=== PATIENT | female | born 1945 | race Caucasian/White ===

== ENCOUNTER 2022-12-30 09:40 | Outpatient (OUT) | payer MEDICARE, SELFPAY ==
[2022-12-30 10:02] LABS: Basophils Absolute Auto 0.1 10^3/uL (0.0-0.1); Basophils Percent Auto 1.6 % (0.2-2.0); Eosinophils Absolute Auto 0.2 10^3/uL (0.0-0.7); Eosinophils Percent Auto 5.5 % (0.9-7.0); Hematocrit 37.4 % (36.0-48.0); Hemoglobin 11.8 g/dL (12.0-16.0); Lymphocytes Percent Auto 32.1 % (20.5-60.0); Mean Corpuscular HGB Conc 31.6 g/dL (29.9-35.2); Mean Corpuscular Hemoglobin 30.7 pg (26.7-34.0); Mean Corpuscular Volume 97.4 fL (81.0-99.0); Mean Platelet Volume 10.8 fL (9.5-13.5); Monocytes Absolute Auto 0.3 10^3/uL (0.3-0.8); Neutrophils Absolute Auto 1.5 10^3/uL (1.4-6.5); Neutrophils Percent Auto 49.8 % (43.0-75.0); Platelet Count 235 10^3/uL (150-450); Red Blood Count 3.84 10^6/uL (4.20-5.40); Red Cell Distribution Width 12.3 % (11.0-15.0); White Blood Count 3.1 10^3/uL (4.0-11.0)
[2022-12-30 10:11] LABS: Estimated Average Glucose 105 mg/dL; Glycohemoglobin A1C 5.3 % (4.5-6.2)
[2022-12-30 10:42] LABS: Alanine Aminotransferase 22 U/L (14-59); Albumin Globulin Ratio 1.3; Albumin Level 3.8 g/dL (3.4-5.0); Alkaline Phosphatase 61 U/L (46-116); Anion Gap 7.3; Aspartate Amino Transferase 17 U/L (15-37); Bilirubin Total 0.6 mg/dL (0.2-1.0); Carbon Dioxide 35.6 mmol/L (21.0-32.0); Chloride 103 mmol/L (98-107); Chol HDL Ratio 1.7; Cholesterol 175 mg/dL (<=200); Estimated GFR (African America >60 (>=60); Estimated GFR (Non-African Ame >60 (>=60); Free T3 2.49 pg/mL (2.18-3.98); Globulin 2.9 g/dL; Glucose 90 mg/dL (74-106); HDL Cholesterol 104 mg/dL (40-60); Potassium 3.9 mmol/L (3.5-5.1); Sodium 142 mmol/L (136-145); Thyroid Stimulating Hormone 0.707 uIU/mL (0.358-3.740); Total Protein 6.7 g/dL (6.4-8.2); Triglycerides 38 mg/dL (<=150); VLDL CHOLESTEROL 7.6 mg/dL
== END 2022-12-30 09:41 | disposition home or self-care (01) ==
LOC: LAB 09:44
PROVIDERS: PCP Family Medicine; Visit Provider Family Medicine
DX: D64.9 Anemia, unspecified (principal); E55.9 Vitamin D deficiency, unspecified; R73.09 Other abnormal glucose; E78.5 Hyperlipidemia, unspecified; I10 Essential (primary) hypertension; K58.9 Irritable bowel syndrome, unspecified; E03.9 Hypothyroidism, unspecified
CPT/HCPCS: 36415; 80053; 80061; 82306; 83036; 83540; 84436; 84443; 84481; 85025

== ENCOUNTER 2023-01-14 10:14 | Outpatient (OUT) | payer MEDICARE, SELFPAY ==
[2023-01-14 12:16] LABS: Basophils Absolute Auto 0.1 10^3/uL (0.0-0.1); Eosinophils Absolute Auto 0.3 10^3/uL (0.0-0.7); Eosinophils Percent Auto 3.2 % (0.9-7.0); Hematocrit 37.1 % (36.0-48.0); Hemoglobin 11.9 g/dL (12.0-16.0); Immature Granulocytes Abs Auto 0.02 10^3/uL (0.00-0.03); Immature Granulocytes Pct Auto 0.3 % (0.0-0.5); Lymphocytes Absolute Auto 0.9 10^3/uL (1.2-3.8); Lymphocytes Percent Auto 11.3 % (20.5-60.0); Mean Corpuscular HGB Conc 32.1 g/dL (29.9-35.2); Mean Corpuscular Hemoglobin 31.8 pg (26.7-34.0); Mean Corpuscular Volume 99.2 fL (81.0-99.0); Mean Platelet Volume 12.1 fL (9.5-13.5); Monocytes Absolute Auto 0.6 10^3/uL (0.3-0.8); Monocytes Percent Auto 7.1 % (1.7-12.0); Neutrophils Absolute Auto 6.1 10^3/uL (1.4-6.5); Neutrophils Percent Auto 77.1 % (43.0-75.0); Platelet Count 223 10^3/uL (150-450); Red Blood Count 3.74 10^6/uL (4.20-5.40); Red Cell Distribution Width 12.4 % (11.0-15.0); White Blood Count 7.9 10^3/uL (4.0-11.0)
== END 2023-01-14 10:15 | disposition home or self-care (01) ==
LOC: LAB 10:15
PROVIDERS: PCP Family Medicine; Visit Provider Family Medicine
DX: R79.9 Abnormal finding of blood chemistry, unspecified (principal)
CPT/HCPCS: 36415; 85025

== ENCOUNTER 2023-07-27 21:15 | Emergency (ER) | payer MEDICARE, SELFPAY ==
[2023-07-27 21:23] VITALS: BP 174/88; PULSE 70; TEMP 36.4; O2SAT 98; BMI 17.2
--- OUTSIDE RECORDS SUMMARY | 2023-07-27 21:25 | XMS_ITS | CCD ---
Author Organization [facility] Care Team Providers Care Weighbridge Operator Name Role Phone SANJANA DE LA CRUZ Primary Care Unavailable BONETTI, SUE Primary Care Unavailable BONETTI, SUE Primary Care Unavailable BONETTI, SANJANA PEOPLES Referring Unavailable BONETTI, SANJANA PEOPLES Primary Care Unavailable Bonettgianluca, Sanjana Peoples Primary Care Provider JONO, SANJNAA PEOPLES Primary Care Unavailable Bonettgianluca, DO Kimmy Primary Care Provider DO Kimmy De La Cruz Attending Provider MD Andrez Hartman Attending Provider Kimmy De La Cruz Attending Unavailable Bonetti, Kimmy Primary Care Unavailable Andrez Hartman Attending Unavailable Jono, Kimmy Primary Care Unavailable PHIL ROBLEDO Consulting Unavailable PHIL ROBLEDO Admitting Unavailable PHIL ROBLEDO Attending Unavailable WANDA HONG Consulting Unavailable Allergies Allergy Classification Reported Allergen(s) Allergy Type Date of Onset Reaction(s) Facility (1 source) cefdinir Drug Allergy 11-16-2018 [place], [place] Medications Current Medications Medication Drug Class(es) Dates Sig (Normalized) Sig (Original) acetaminophen 325 mg oral capsule (1 source) Acetaminophen (TYLENOL) 325 MG CAPS Take by mouth 0 Active albuterol sulfate HFA 108 (90 Base) MCG/ACT inhaler (1 source) Start: 03-19-2019 take 2 puff(s) by inhalation four times daily as needed for wheezing albuterol sulfate HFA 108 (90 Base) MCG/ACT inhaler Inhale 2 puffs into the lungs 4 times daily as needed for Wheezing 3 Inhaler 1 03/19/2019 Active amLODIPine 2.5 mg oral tablet (2 sources) Dihydropyridine Calcium Channel Jun Start: 09-28-2021 take 2.5 mg by mouth twice daily Amlodipine Active 2.5 MG PO Twice A Day September 28, 2021 12:00am ascorbic acid 1000 mg oral tablet (2 sources) Vitamin C Start: 09-29-2021 take 1 g by mouth every six hours Ascorbic Acid (Vitamin C) (Vitamin C) 1,000 mg Tablet Active 1 GM PO Q6H September 29, 2021 12:00am Atenolol (5 sources) beta-Adrenergic Jun Start: 10-21-2020 Atenolol Active October 21, 2020 8:36am Start: 10-21-2020 Atenolol Activ e October 21, 2020 9:36am Start: 01-24-2019 End: 09-29-2021 take 25 mg by mouth at bedtime Atenolol Discontinued 2 5 MG PO Bedtime January 24, 2019 1:00am September 29, 2021 10:57am cholecalciferol 0.025 mg oral capsule (2 sources) Vitamin D Start: 09-29-2021 take 1 capsule by mouth once daily Cholecalciferol (Vitamin D3) (Vitamin D3) 25 mcg (1,000 unit) Capsule Active 25 MCG PO Every Day September 29, 2021 12:00am Co Q-10 (2 sources) Start: 10-21-2020 Co Q-10 Active October 21, 2020 8:36am Start: 10-21-2020 Co Q-10 Active October 21, 2020 9:36am ubidecarenone 100 mg oral ca psule (3 sources) Start: 09-29-2021 Coenzyme Q10 ( Coq-10) 100 mg Capsule Active 100 MG PO Every Day September 29, 2021 12:00am Coenzyme Q10 (CO Q-10 MAXIMUM STRENGTH) 400 MG CAPS Take by mouth 0 Active diclofenac sodium 0.01 mg/mg topical gel (1 source) Nonsteroidal Anti-inflammatory Drug Start: 08-06-2019 diclofenac sodium (VOLTAREN) 1 % GEL Apply 4 g topically 4 times daily 2 Tube 5 08/06/2019 Active levothyroxine (5 sources) l-Thyroxine Start: 10-21-2020 Levothyroxine Sodium Active October 21, 2020 8:36am Start: 10-21-2020 Levothyroxine Sodium Active October 21, 2020 9:36am Start: 01-24-2019 take 1 tablet by ethel th once daily Levothyroxine (Synthroid) 75 MCG tablet Active 75 MCG PO Daily January 24, 2019 1:00am Magnesium (2 sources) Start: 09-29-2021 take 200 mg by mouth once daily Magnesium Active 200 MG PO Every Day September 29, 2021 12:00am meloxicam (3 sources) Nonsteroidal Anti-inflammatory Drug Start: 10-21-2020 Meloxicam Active October 21, 2020 8:36am Start: 10-21-2020 Meloxicam Acti ve October 21, 2020 9:36am Start: 08-06-2019 take 1 tablet by ethel th once daily as needed for pain meloxicam (MOBIC) 7.5 MG tablet Take 1 tablet by mouth daily as needed for Pain 30 tablet 0 08/06/2019 Active NONFORMULARY (1 source) NONFORMULARY CBD OIL 0 Active Simvastatin (5 sources) HMG-CoA Reductase Inhibitor Start: 10-21-2020 Simvastatin Active October 21, 2020 8:36am Start: 10-21-2020 Simvastatin Ac tive October 21, 2020 9:36am Start: 01-24-2019 take 1 tablet by ethel th once daily Simvastatin (Zocor) 20 MG tablet Active 20 MG PO Daily January 24, 2019 1:00am Vitamin D3 (2 sources) Start: 10-21-2020 Vitamin D3 Act guera October 21, 2020 8:36am Start: 10-21-2020 Vitamin D3 Act guera October 21, 2020 9:36am Zinc (2 sources) Start: 09-29-2021 take 50 mg by mouth once daily Zinc Active 50 MG PO Daily September 29, 2021 12:00am Problems Active Problems Problem Classification Problem Date Documented Da te Episodic/Chronic Disorders of lipid metabolism (1 source) Mixed hyperlipidemia; Translations: [Mixed hyperlipidemia] Chronic Essential hypertension (1 source) Hypertensive disorder; Translations: [Hypertension] Onset: 11-23-2018 11-23-2018 Chronic Osteoarthritis (1 source) Osteoarthritis; Translations: [Osteoarthritis] Onset: 11-23-2018 11-23-2018 Chronic Other upper respiratory infections (1 source) Acute upper respiratory infection, unspecified; Translations: [ACUTE UP RESPIRATORY INFECTION UNS] Onset: 03-02-2022 Episodic Thyroid disorders (1 source) Acquired hypothyroidism; Translations: [Acquired hypothyroidism] Chronic Unclassified (2 sources) COUGH, UNSPECIFIED; Translations: [COUGH, UNSPECIFIED] Onset: 03-02-2022 Unclassified (1 source) UNVACCINATED FOR COVID-19; Translations: [UNVACCINATED FOR COVID-19] Onset: 03-02-2022 Unclassified (1 source) CONTACT W/AND (SUSP) EXPOS COVID-19; Translations: [CONTACT W/AND (SUSP) EXPOS COVID-19] Onset: 03-02-2022 Past or Other Problems Problem Classification Problem Date Documented Da te Episodic/Chronic Unclassified (1 source) COUGH, UNSPECIFIED; Translations: [COUGH, UNSPECIFIED] Onset: 02-28-2022 Results Test Name Value Interpretation Reference Range Facil ity [facility]05 SARS-CoV-2 (COVID-19) RNA TREVOR+probe Ql (Unsp spec) Not detected Normal NOT DETECTED [facility] Comment on above: Result Comment: This test is not yet approved or cleared by the [place] FDA. When there are no FDA-approved or cleared tests available, and other criteria are met, FDA can make tests available under an emergency access mechanism called an Emergency Use Authorization (EUA). The EUA for this test is supported by the [place] of Health and Human Service's (HHS's) declaration that circumstances exist to justify the emergency use of in vitro diagnostics for the detection and/or diagnosis of the virus that causes COVID-19. This EUA will remain in effect (meaning this test can be used) for the duration of the COVID-19 declaration justifying emergency of IVDs, unless it is terminated or revoked by FDA (after which the test may no longer be used). When diagnostic testing is negative, the possibility of a false negative should be considered in the context of a patient's recent exposures and the presence of clinical signs and symptoms consistent with SARS-CoV-2. Performed By: #### C [facility] #### [facility] [address] [place] [address] Dr. Fabrice Garza INFLUENZA A AND B AGon 02-28 INFLUANEGH SEE BELOW Normal [facility] Comment on above: Result Comment: Nega tive for Flu A protein angiten. Infection due to Flu A cannot be ruled out. Flu A angiten in the sample may be below the detection limit of the test. Performed By: #### I [facility] #### [facility] [address] [place] [address] Dr. Fabrice Garza INFLUBNEG SEE BELOW Normal [facility] Comment on above: Result Comment: Nega tive for Flu B protein antigen. Infection due to Flu B cannot be ruled out. Flu B antigen in the sample may be below the detection limit of the test. Performed By: #### I [facility] #### [facility] [address] [place] [address] Dr. Fabrice Garza INFLUENZA A AG Negative Normal NEGATIVE SEE COMMENT [facility] Comment on above: Performed By: #### I [facility] #### [facility] [address] [place] [address] Dr. Fabrice Garza INFLUENZA B AG Negative Normal NEGATIVE SEE COMMENT [facility] Comment on above: Performed By: #### I NFLU[facility] #### [facility] [address] [place] [address] Dr. Fabrice Garza INTERNAL CONTROLS Within Normal Limits Normal Wi thin Normal Limits [facility] Comment on above: Performed By: #### I NFLUAB #### [facility] [address] [place] [address] Dr. Fabrice Garza XR CHEST 1 Von 02-28-2022 XR CHEST 1 V EXAMINATION: XR CHEST 1 V HISTORY: Shortness of breath COMPARISON: None. TECHNIQUE: Portable chest FINDINGS: The lung parenchyma is free of consolidation or infiltrate. No pneumothorax or pleural effusion. The cardiac, mediastinal and hilar contours are normal. The visualized osseous structures exhibit no gross abnormality. IMPRESSION: No acute cardiopulmonary abnormality. Electronically authenticated by: WANDA HONG Date: 2022-02-28 16:37 Normal [facility] XR CERVICAL SPINE (2-3 VIEWS )on 09-04-2021 XR CERVICAL SPINE (2-3 VIEWS) EXAMINATION: 2 XRAY VIEWS OF THE CERVICAL SPINE 09/03/2021 10:30 am COMPARISON: 27 October 2010 HISTORY: ORDERING SYSTEM PROVIDED HISTORY: Neck pain FINDINGS: Multilevel degenerative disc disease is very severe especially C4-C6. Degenerative facet arthropathy is moderate at multiple levels. There is straightening of the normal cervical lordosis. No fracture or dislocation. Normal soft tissues. IMPRESSION: Degenerative cervical spondylosis which is very severe and demonstrates interval progression since 27 October 2010 Interpreted by: Kranthi Ribeiro MD Signed by: Kranthi Ribeiro MD 09/04/[address] [facility] CBC With Platelet and Differ entialon 09-03-2021 Abs Imm Granulocytes 0.01 E9/L Normal [facility] Absolute Basophils 0.04 E9/L Normal 0.00-0.20 [facility] Absolute Eosinophils 0.12 E9/L Normal 0.05-0.50 [facility] Absolute Lymphocytes 0.90 E9/L Low 1.50-4.00 [facility] Absolute Monocytes 0.37 E9/L Normal 0.10-0.95 [facility] Absolute Neutrophils 2.34 E9/L Normal 1.80-7.30 [facility] Basophils/100 WBC (Bld) 1.1 % Normal 0.0-2.0 [facility] Eosinophils/100 WBC (Bld) 3.2 % Normal 0.0-6.0 [facility] Hematocrit (Bld) [Volume fraction] 41.7 % Normal 34.0-48.0 [facility] Hemoglobin (Bld) [Mass/Vol] 12.8 g/dL Normal 11.5-15.5 [facility] Imm Granulocytes 0.3 % Normal 0.0-5.0 [facility] Lymphocytes/100 WBC (Bld) 23.8 % Normal 20.0-42.0 [facility] MCH (RBC) [Entitic mass] 30.5 pg Normal 26.0-35.0 [facility] MCHC 30.7 % Low 32.0-34.5 [facility] MCV (RBC) [Entitic vol] 99.5 fL Normal 80.0-99.9 [facility] Monocytes/100 WBC (Bld) 9.8 % Normal 2.0-12.0 [facility] Neutrophils/100 WBC (Bld) 61.8 % Normal 43.0-80.0 [facility] Platelet Count 232 E9/L Normal 130-450 [facility] Platelet mean volume (Bld) [Entitic vol] 12.3 fL High 7.0-12.0 [facility] RBC 4.19 E12/L Normal 3.50-5.50 [facility] RDW 12.6 fL Normal 11.5-15.0 [facility] WBC 3.8 E9/L Low 4.5-11.5 [facility] Comprehensive Metabolic Pane rosie 09-03-2021 Albumin [Mass/Vol] 4.8 g/dL Normal 3.5-5.2 [facility] ALP [Catalytic activity/Vol] 66 U/L Normal 35-104 [facility] ALT [Catalytic activity/Vol] 11 U/L Normal 0-32 [facility] Anion gap [Moles/Vol] 15 mmol/L Normal 7-16 [facility] AST [Catalytic activity/Vol] 23 U/L Normal 0-31 [facility] Bilirubin [Mass/Vol] 0.3 mg/dL Normal 0.0-1.2 [facility] Calcium [Mass/Vol] 9.8 mg/dL Normal 8.6-10.2 [facility] Chloride [Moles/Vol] 102 mmol/L Normal 98-107 [facility] CO2 [Moles/Vol] 25 mmol/L Normal 22-29 [facility] Creatinine [Mass/Vol] 0.8 mg/dL Normal 0.5-1.0 [facility] GFR Calculated >60 Normal >=60 [facility] Comment on above: Result Comment: Manager Client Service vika Kidney Disease: less than 60 ml/min/1.73 sq.m. Kidney Failure: less than 15 ml/min/1.73 sq.m. Results valid for patients 18 years and older. GFR/1.73 sq M.predicted among blacks MDRD (S/P/Bld) [Vol rate/Area] mL/min/{1.73_m2} Normal [facility] Glucose [Mass/Vol] 88 mg/dL Normal 74-99 [facility] Potassium [Moles/Vol] 4.3 mmol/L Normal 3.5-5.0 [facility] Protein [Mass/Vol] 7.2 g/dL Normal 6.4-8.3 [facility] Sodium [Moles/Vol] 142 mmol/L Normal 132-146 [facility] Urea nitrogen [Mass/Vol] 12 mg/dL Normal 6-23 [facility] Lipid Panelon 09-03-2021 Cholesterol [Mass/Vol] 210 mg/dL High 0-199 [facility] Cholesterol in HDL [Mass/Vol] 95 mg/dL Normal >40 [facility] Cholesterol in LDL [Mass/Vol] 98 mg/dL Normal 0-99 [facility] Triglyceride [Mass/Vol] 86 mg/dL Normal 0-149 [facility] VLDL Cholesterol (Calculated) 17 mg/dL Normal [facility] TSH w/out Reflexon TSH w/out Reflex 0.618 uIU/mL Normal 0.270-4.200 [facility] Thyroxine Freeon 09-03-2021 Thyroxine Free 2.12 ng/dL High 0.93-1.70 [facility] UR Microalbumin Randomon UR Microalbumin Random <12.0 Normal Not Established [facility] XR THORACIC SPINE (3 VIEWS)o n 09-03-2021 XR THORACIC SPINE (3 VIEWS) EXAMINATION: THREE XRAY VIEWS OF THE THORACIC SPINE 09/03/2021 11:30 am COMPARISON: None. HISTORY: ORDERING SYSTEM PROVIDED HISTORY: Mid back pain on left side FINDINGS: Thoracic vertebral bodies are normal in height and alignment. Multilevel degenerative changes. No evidence of fracture. Pedicles are symmetric and intact. Scoliosis thoracolumbar spine. Chronic appearing compression deformities. Visualized lungs are clear. IMPRESSION: No acute abnormality of the thoracic spine Multilevel degenerative changes with scoliosis. Chronic appearing compression deformities. Interpreted by: Wanda Akers MD Signed by: Wanda Akers MD 09/03/[address] [facility] Thyroxine Freeon 08-18-2019 Thyroxine Free 1.85 ng/dL High 0.93-1.70 [facility] CBC Auto Differentialon 08-05 Basophils (Bld) [#/Vol] 0.04 10*3/uL [place] Basophils/100 WBC (Bld) 1.0 % 0 - 2 % [place] Eosinophils (Bld) [#/Vol] 0.16 10*3/uL [place] Eosinophils/100 WBC (Bld) 4.1 % 0 - 6 % [place] Erythrocyte distribution width (RBC) [Ratio] 12.3 fL 11.5 - 15 fL [place] Hematocrit (Bld) [Volume fraction] 44.4 % 34 - 48 % [place] Hemoglobin (Bld) [Mass/Vol] 14.2 g/dL 11.5 - 15.5 g/dL [place] Immature granulocytes (Bld) [#/Vol] 0.01 10*3/uL E9/L [place] Immature granulocytes/100 WBC (Bld) 0.3 % 0 - 5 % [place] Interpretation and review of laboratory results Abnormal [place] Lymphocytes (Bld) [#/Vol] 1.04 10*3/uL Low [place] Lymphocytes/100 WBC (Bld) 26.5 % 20 - 42 % [place] MCH (RBC) [Entitic mass] 31.8 pg 26 - 35 pg [place] MCHC (RBC) [Mass/Vol] 32.0 % 32 - 34.5 % [place] MCV (RBC) [Entitic vol] 99.3 fL 80 - 99.9 fL [place] Monocytes (Bld) [#/Vol] 0.35 10*3/uL [place] Monocytes/100 WBC (Bld) 8.9 % 2 - 12 % [place] Neutrophils Absolute 2.32 [place] Neutrophils/100 WBC (Bld) 59.2 % 43 - 80 % [place] Platelet mean volume (Bld) [Entitic vol] 12.5 fL High 7 - 12 fL [place] Platelets (Bld) [#/Vol] 166 10*3/uL [place] RBC (Bld) [#/Vol] 4.47 10*6/uL [place] WBC (Bld) [#/Vol] 3.9 10*3/uL Low [place] CBC With Platelet and Differ entialon 08-17-2019 Abs Imm Granulocytes 0.01 E9/L Normal [facility] Basophils (Bld) [#/Vol] 0.04 E9/L Normal 0.00-0.20 [facility] Basophils/100 WBC (Bld) 1.0 % Normal 0.0-2.0 [facility] Eosinophils (Bld) [#/Vol] 0.16 E9/L Normal 0.05-0.50 [facility] Eosinophils/100 WBC (Bld) 4.1 % Normal 0.0-6.0 [facility] Erythrocyte distribution width (RBC) [Ratio] 12.3 fL Normal 11.5-15.0 [facility] Hematocrit (Bld) [Volume fraction] 44.4 % Normal 34.0-48.0 [facility] Hemoglobin (Bld) [Mass/Vol] 14.2 g/dL Normal 11.5-15.5 [facility] Imm Granulocytes 0.3 % Normal 0.0-5.0 [facility] Lymphocytes (Bld) [#/Vol] 1.04 E9/L Low 1.50-4.00 [facility] Lymphocytes/100 WBC (Bld) 26.5 % Normal 20.0-42.0 [facility] MCH (RBC) [Entitic mass] 31.8 pg Normal 26.0-35.0 [facility] MCHC (RBC) [Mass/Vol] 32.0 % Normal 32.0-34.5 [facility] MCV (RBC) [Entitic vol] 99.3 fL Normal 80.0-99.9 [facility] Monocytes (Bld) [#/Vol] 0.35 E9/L Normal 0.10-0.95 [facility] Monocytes/100 WBC (Bld) 8.9 % Normal 2.0-12.0 [facility] Neutrophils (Bld) [#/Vol] 2.32 E9/L Normal 1.80-7.30 [facility] Neutrophils/100 WBC (Bld) 59.2 % Normal 43.0-80.0 [facility] Platelet mean volume (Bld) [Entitic vol] 12.5 fL High 7.0-12.0 [facility] Platelets (Bld) [#/Vol] 166 E9/L Normal 130-450 [facility] RBC (Bld) [#/Vol] 4.47 E12/L Normal 3.50-5.50 [facility] WBC (Bld) [#/Vol] 3.9 E9/L Low 4.5-11.5 [facility] Comprehensive Metabolic Pane rosie 08-17-2019 Albumin [Mass/Vol] 4.4 g/dL Normal 3.5-5.2 [facility] ALP [Catalytic activity/Vol] 69 U/L Normal 35-104 [facility] ALT [Catalytic activity/Vol] 9 U/L Normal 0-32 [facility] Anion gap [Moles/Vol] 12 mmol/L Normal 7-16 [facility] AST [Catalytic activity/Vol] 20 U/L Normal 0-31 [facility] Bilirubin [Mass/Vol] 0.6 mg/dL Normal 0.0-1.2 [facility] Calcium [Mass/Vol] 10.2 mg/dL Normal 8.6-10.2 [facility] Chloride [Moles/Vol] 100 mmol/L Normal 98-107 [facility] CO2 [Moles/Vol] 29 mmol/L Normal 22-29 [facility] Creatinine [Mass/Vol] 0.8 mg/dL Normal 0.5-1.0 [facility] GFR/1.73 sq M predicted among blacks MDRD (S/P/Bld) [Vol rate/Area] mL/min/{1.73_m2} Normal [facility] GFR/1.73 sq M predicted among non-blacks MDRD (S/P/Bld) [Vol rate/Area] mL/min/{1.73_m2} Normal >=60 [facility] Comment on above: Result Comment: Manager Client Service vika Kidney Disease: less than 60 ml/min/1.73 sq.m. Kidney Failure: less than 15 ml/min/1.73 sq.m. Results valid for patients 18 years and older. Glucose [Mass/Vol] 92 mg/dL Normal 74-99 [facility] Potassium [Moles/Vol] 5.1 mmol/L High 3.5-5.0 [facility] Protein [Mass/Vol] 7.1 g/dL Normal 6.4-8.3 [facility] Sodium [Moles/Vol] 141 mmol/L Normal 132-146 [facility] Urea nitrogen [Mass/Vol] 11 mg/dL Normal 8-23 [facility] Albumin [Mass/Vol] 4.4 g/dL 3.5 - 5.2 g/dL [place] ALP [Catalytic activity/Vol] 69 U/L 35 - 104 U/L [place] ALT [Catalytic activity/Vol] 9 U/L 0 - 32 U/L [place] Anion gap [Moles/Vol] 12 mmol/L 7 - 16 mmol/L [place] AST [Catalytic activity/Vol] 20 U/L 0 - 31 U/L [place] Bilirubin Ql (U) 0.6 mg/dL 0 - 1.2 mg/dL [place] Calcium [Mass/Vol] 10.2 mg/dL 8.6 - 10.2 mg/dL [place] Chloride [Moles/Vol] 100 mmol/L 98 - 107 mmol/L [place] CO2 [Moles/Vol] 29 mmol/L 22 - 29 mmol/L [place] Creatinine [Mass/Vol] 0.8 mg/dL 0.5 - 1 mg/dL [place] GFR >60 [place] GFR Non- >60 >=60 mL/min/1.73 [place] Comment on above: Chronic Kidney Disea se: less than 60 ml/min/1.73 sq.m. Kidney Failure: less than 15 ml/min/1.73 sq.m. Results valid for patients 18 years and older. Glucose [Mass/Vol] 92 mg/dL 74 - 99 mg/dL [place] Interpretation and review of laboratory results Abnormal [place] Potassium [Moles/Vol] 5.1 mmol/L High 3.5 - 5 mmol/L [place] Protein [Mass/Vol] 7.1 g/dL 6.4 - 8.3 g/dL [place] Sodium [Moles/Vol] 141 mmol/L 132 - 146 mmol/L [place] Urea nitrogen [Mass/Vol] 11 mg/dL 8 - 23 mg/dL [place] Lipid Panelon 08-17-2019 Cholesterol [Mass/Vol] 192 mg/dL Normal 0-199 [facility] Cholesterol in HDL [Mass/Vol] 84 mg/dL Normal >40 [facility] Cholesterol in LDL [Mass/Vol] 93 mg/dL Normal 0-99 [facility] Triglyceride [Mass/Vol] 73 mg/dL Normal 0-149 [facility] VLDL Cholesterol (Calculated) 15 mg/dL Normal [facility] Cholesterol [Mass/Vol] 192 mg/dL 0 - 199 mg/dL [place] Cholesterol in HDL [Mass/Vol] 84 mg/dL >40 [place] Cholesterol in LDL [Mass/Vol] 93 mg/dL 0 - 99 mg/dL [place] Triglyceride [Mass/Vol] 73 mg/dL 0 - 149 mg/dL [place] VLDL Cholesterol Calculated 15 mg/dL [place] T4, Freeon 08-17-2019 Free T4 [Mass/Vol] 1.85 ng/dL High 0.93 - 1.7 ng/dL [place] Interpretation and review of laboratory results Abnormal [place] TSH w/out Reflexon 0 TSH Qn 2.150 uIU/mL Normal 0.270-4.200 [facility] TSH without Reflexon 020 TSH Qn 2.150 m[IU]/L Kerry Leger h- DEVON ESPINOZA XR KNEE RIGHT (3 VIEWS)on XR KNEE RIGHT (3 VIEWS) EXAMINATION: THREE XRAY VIEWS OF THE RIGHT KNEE 08/06/2019 4:58 pm COMPARISON: None. HISTORY: ORDERING SYSTEM PROVIDED HISTORY: Right hip pain Pain FINDINGS: There is mild infrapatellar soft tissue swelling. [id number] patellofemoral joint space narrowing. There is a small spur at the attachment of the quadriceps tendon on the patella. Mild medial compartment joint space narrowing with minimal spurring. No acute fracture or dislocation. No evidence of a right knee joint effusion. IMPRESSION: Mild infrapatellar soft tissue swelling. No evidence of an acute fracture. Mild degenerative change in the patellofemoral and medial compartments. Interpreted by: Maury Ojeda MD Signed by: Maury Ojeda MD 08/07/19 Final result Normal [facility] XR HIP RIGHT (2-3 VIEWS)on 08-06-2019 XR HIP RIGHT (2-3 VIEWS) EXAMINATION: TWO XRAY VIEWS OF THE RIGHT HIP 08/06/2019 4:58 pm COMPARISON: 01/25/2019 HISTORY: ORDERING SYSTEM PROVIDED HISTORY: Right hip pain FINDINGS: There is no fracture or malalignment. There are no significant degenerative changes. Calcification is again seen adjacent to the greater trochanter. IMPRESSION: No acute abnormality or significant degenerative change. Interpreted by: Alex Frias MD Signed by: Alex Frias MD 08/06/19 Final result Normal [facility] XR HIP 2-3 VW W PELVIS RIGHT on 01-25-2019 XR HIP 2-3 VW W PELVIS RIGHT LOCATION: 200 EXAM: XR HIP 2-3 VW W PELVIS RIGHT COMPARISON: None HISTORY: Right hip pain. TECHNIQUE: 3 views of the right hip were obtained. FINDINGS: The hip is well aligned. No significant arthritic narrowing seen. Femoral head and neck junction normal in contour. No fractures identified. The bony pelvis appears normal. IMPRESSION: No significant abnormalities. Interpreted by: Kranthi Solis DO Signed by: Kranthi Solis DO 01/25/19 Final result Normal [facility] XR LUMBAR SPINE (2-3 VIEWS)o n 01-25-2019 XR LUMBAR SPINE (2-3 VIEWS) LOCATION:200 EXAM: XR LUMBAR SPINE (2-3 VIEWS) COMPARISON: None HISTORY: Low back pain TECHNIQUE: 4 views of the lumbar spine were obtained. FINDINGS: Severe degenerative levoscoliotic curvature is identified with subtotal loss of disc height at L3-4. No compression deformities are identified. IMPRESSION: Severe lumbar spine arthritis. Interpreted by: Kranthi Solis DO Signed by: Kranthi Solis DO 01/25/19 Final result Normal [facility] Vital Signs Date Time Vital Sign Value Performing Clinician Geraldo smith 10-02-2021 13:15-0400 Diastolic blood pressure 74 mm[Hg] DO Kimmy Bonetti Work Phone: [facility] Work Phone: 10-02-2021 13:15-0400 Heart rate 76 /min DO Kimmy Bonetti Work Phone: [facility] Work Phone: 10-02-2021 13:15-0400 Respiratory rate 18 /min DO Kimmy Bonetti Work Phone: [facility] Work Phone: 10-02-2021 13:15-0400 SaO2% (BldA) [Mass fraction] 97 % DO Kimmy Bonetti Work Phone: [facility] Work Phone: 10-02-2021 13:15-0400 Systolic blood pressure 133 mm[Hg] DO Kimmy Bonetti Work Phone: [facility] Work Phone: 10-02-2021 12:53-0400 Body temperature 97.3 [degF] DO Kimmy Bonetti Work Phone: [facility] Work Phone: 10-02-2021 10:18-0400 Body height 160.02 cm DO Kimmy De La Cruz Work Phone: [facility] Work Phone: 10-02-2021 10:18-0400 Body mass index (BMI) [Ratio] 19.1 kg/m2 DO Kimmy De La Cruz Work Phone: [facility] Work Phone: 10-02-2021 10:18-0400 Body weight 48.99 kg DO Kimmy De La Cruz Work Phone: [facility] Work Phone: 01-14-2021 09:45-0500 Body temperature 97.8 [degF] [facility] Phone: 01-14-2021 09:45-0500 Diastolic blood pressure 74 mm[Hg] [facility] Phone: 01-14-2021 09:45-0500 Heart rate 60 /min [facility] Phone: 01-14-2021 09:45-0500 Respiratory rate 16 /min [facility] Phone: 01-14-2021 09:45-0500 SaO2% (BldA) [Mass fraction] 99 % [facility] Phone: 01-14-2021 09:45-0500 Systolic blood pressure 160 mm[Hg] [facility] Phone: 01-12-2021 17:29-0500 Body height 160.02 cm [facility] Phone: 01-12-2021 17:29-0500 Body mass index (BMI) [Ratio] 19.5 kg/m2 [facility] Phone: 01-12-2021 17:29-0500 Body weight 49.9 kg [facility] Phone: 12-24-2020 10:00-0400 Body temperature 97 [degF] [facility] Phone: 12-24-2020 10:00-0400 Diastolic blood pressure 66 mm[Hg] [facility] Phone: 12-24-2020 10:00-0400 Heart rate 71 /min [facility] Phone: 12-24-2020 10:00-0400 Respiratory rate 16 /min [facility] Phone: 12-24-2020 10:00-0400 SaO2% (BldA) [Mass fraction] 97 % [facility] Phone: 12-24-2020 10:00-0400 Systolic blood pressure 158 mm[Hg] [facility] Phone: 12-18-2020 12:08-0400 Body height 160.02 cm [facility] Phone: 12-18-2020 12:08-0400 Body mass index (BMI) [Ratio] 19.5 kg/m2 [facility] Phone: 12-18-2020 12:08-0400 Body weight 49.9 kg [facility] Phone: Encounters Encounter Date Encounter Type Care Provider Facility Start: 02-28-2022 End: 02-28-2022 ambulatory PHIL ROBLEDO Facility: Start: 10-02-2021 End: 10-02-2021 ambulatory Andrez María Facility:[facility] Start: 10-02-2021 End: 10-02-2021 Admission to same day surgery center DO Kimmy De La Cruz Work Phone: [facility] Start: 09-28-2021 End: 09-28-2021 ambulatory Kimmy De La Cruz Facility:[facility] Start: 09-28-2021 End: 09-28-2021 ambulatory DO Kimmy De La Cruz Work Phone: [facility] Work Phone: Start: 09-28-2021 End: 09-28-2021 Discharged Recurring DO Kimmy De La Cruz Work Phone: [facility] Start: 09-28-2021 Registered Recurring DO Ruben De La Cruz Work Phone: [facility] Start: 09-03-2021 ambulatory [facility] Start: 01-14-2021 End: 01-14-2021 Patient encounter procedure [facility] Start: 01-08-2021 Non-patient / Non-visit [facility] [address] Start: 12-24-2020 End: 12-24-2020 Patient encounter procedure [facility] Start: 12-11-2020 Non-patient / Non-visit [facility] [address] Start: 12-10-2020 Patient encounter procedure [facility] Start: 08-17-2019 End: 08-20-2019 [facility] encounter [facility] Start: 08-17-2019 End: 08-19-2019 Subsequent hospital visit by physician Sanjana [facility] Comment on above: Acquired hypothyroid ism; Mixed hyperlipidemia Start: 08-06-2019 [facility] Procedures Date Procedure Procedure Detail Performing Clinician Start: 10-02-2021 Phacoemulsification of cataract with intraocular lens implantation DO Kimmy Philipyasmeen Work Phone: Start: 09-03-2021 Radex spine thoracic 3 views SANJANA DE LA CRUZ Start: 01-14-2021 Lumbar Medial Branch Block (Bilateral) Start: 12-24-2020 Local anesthetic block on spinal nerve root Start: 12-24-2020 Fluoroscopic guidance Start: 12-10-2020 MRI of lumbar spine without contrast Start: 08-17-2019 Assay of free thyroxine SANJANA DE LA CRUZ Start: 08-17-2019 Assay of thyroid stimulating hormone tsh SANJANA DE LA CRUZ Start: 08-17-2019 Blood count complete auto&auto difrntl wbc SANJNAA DE LA CRUZ Start: 08-17-2019 Comprehensive metabolic panel SANJANA NELSON I Start: 08-17-2019 Lipid panel SANJANA DE LA CRUZ Start: 08-17-2019 Assay of free thyroxine Sue Shahnaz hough Work Phone: Start: 08-17-2019 Assay of thyroid stimulating hormone tsh Sanjana Peoples Jono Work Phone: Start: 08-17-2019 Blood count complete auto&auto difrntl wbc Sanjana Peoples Jono Work Phone: Start: 08-17-2019 Comprehensive metabolic panel Sanjana De La Cruz Work Phone: Start: 08-17-2019 Lipid panel Sanjana De La Cruz Work Phone: Start: 08-06-2019 Radex hip unilateral with pelvis 2-3 views SANJANA DE LA CRUZ Start: 01-25-2019 Radex hip unilateral with pelvis 2-3 views SANJANA DE LA CRUZ Start: 01-25-2019 Radex spine lumbosacral 2/3 views SANJANA DE LA CRUZ Plan of Treatment Date Care Activity Detail Author Start: 01-14-2021 Fluoroscopic guidance [place] guided spin e [facility] Phone: Start: 12-24-2020 Fluoroscopic guidance [place] guided spin e [facility] Phone: Start: 08-16-2020 Lipid panel Lipid screen [place], [place] Start: 11-06-2019 Influenza vaccination Flu vacc ine (Season Ended) [place], [place] Start: 08-21-2019 End: 08-21-2019 Office Visit 08/21/2019 Office Visit Family Medicine Sanjana De La Cruz DO [address] [facility] [address] [phone] [facility] Start: 12-10-2018 Screening for malign ant neoplasm of colon Colon Cancer Screen FIT/FOBT [place], [place] Start: 08-25-2018 Annual Wellness Visi t (AWV) Annual Wellness Visit (AWV) [place], [place] Start: 12-05-1998 Screening for osteoporosis DEXA (modify frequency per FRAX score) [place], [place] Start: 12-05-1993 Shingles Vaccine (1 of 2) Baltazar gles Vaccine (1 of 2) [place], [place] Start: 12-05-1962 DTaP/Tdap/Td vaccine (1 - Tdap) DTaP/Tdap/Td vaccine (1 - Tdap) [place], [place] Patient Education [facility] Phone: Patient referral [facility] Phone: Immunizations Immunization Date Immunization Notes Care Provider Fa cility 12-01-2017 influenza, high dose seasonal, preservative-free [facility], [place] 06-02-2017 pneumococcal polysac charide vaccine, 23 valent [facility], [place] 12-08-2016 Influenza Vaccine, unspecified formulation [facility] , [place] 12-08-2016 influenza virus vacc ine, unspecified formulation [facility] , [place] 12-09-2015 Influenza Vaccine, unspecified formulation [facility] [place] 12-09-2015 influenza virus vacc ine, unspecified formulation [facility] [place] 11-06-2014 Influenza Vaccine, unspecified formulation [facility] [place] 11-06-2014 influenza virus vacc ine, unspecified formulation [facility] , [place] 11-19-2013 Influenza Vaccine, unspecified formulation [facility] , [place] 11-19-2013 influenza virus vacc ine, unspecified formulation [place], [place] Payers Date Payer Category Payer Self-pay [id number] 2020 Medicaid [id number] 2017 Medicare [id number] 2017 Medicare BCBS MEDICARE AN THEM MEDIBLUE ESSENTIAL/PLUS xxxxxxxxxxxx 2017-Present [address] [address] [place] [address] xxxxxxxxxxxx [id number] 1959 Medicare [id number] 1945 Unknown [id number] 1945 Unknown [id number] 1945 Unknown [id number] 1945 Unknown [id number] 1945 Unknown [id number] 1945 Unknown [id number] Unknown [id number] Unknown [id number] Social History Date Type Detail Facility Start: 08-06-[facility] smoker [place], [place] History of tobacco use Cigarette Smoker [place], [place] Start: 08-06-2019 Cigarettes smoked current (pack per day) - Reported [place], [place] Start: 08-06-2019 Alcohol intake Current drinke r of alcohol (finding) [place], [place] Start: 11-23-2018 History SDOH Alcohol Frequency 2 [place] Start: 11-23-2018 History SDOH Alcohol Std Drinks 1 [place] Sex Assigned At Not on file [place] Start: 12-24-2020 Former Smoker The [facility] Phone: Start: 12-18-202012-24 [facility] Phone: Start: 12-18-202012-23 The [facility] Phone: Start: 1945 Sex Assigned At Female T he [facility] Phone: Start: 10-02-2021 Tobacco smoking stat us [facility]IS Ex-smoker (finding) [facility] Work Phone: Start: 10-02-2021 Yes [facility] Work Phone: Medical Equipment Procedure Code Equipment Code Equipment Original Text Equipment Identifier Dates Phacoemulsification of cataract with intraocular lens implant LENS [id number] FDA Start: 10-02-2021 Goals Date Patient Goal Desired Activity /State Functional Status Date Assessment Result Facility 10-02-2021 Functional status Ability to Fol low Directions Excellent [facility] Work Phone: 10-02-2021 Functional status Glasses [facility] Work Phone: 01-14-2021 Functional status Mobility - Ski n Risk Assessment Scale No Limitations [facility] Phone: 01-12-2021 Functional status Visual Assisti ve Devices Glasses [facility] Phone: 12-24-2020 Functional status Mobility - Ski n Risk Assessment Scale No Limitations [facility] Phone: 12-18-2020 Functional status Visual Assisti ve Devices Glasses [facility] Phone: Mental Status Date Assessment Result Facility 10-02-2021 Cognitive function Patient Behav ior Appropriate;Cooperative [facility] Work Phone: 10-02-2021 Cognitive function No [place] Work Phone: 01-14-2021 Cognitive function Level Of Cons ciousness Awake;Alert;Appropriate;Follow s Commands [facility] Phone: 12-24-2020 Cognitive function Level Of Cons ciousness Awake;Alert;Appropriate;Follow s Commands [facility] Phone: Evaluation note Note Date & Type Note Facility Evaluation note No assessment information availa ble [facility] Phone: Hospital Discharge instructions Note Date & Type Note Facility Hospital Discharge instructions Additional Instructions NO LIFTING NO BENDING KEEP EYE SHIELD IN PLACE FOLLOW UP WITH DR HARTMAN TOMORROW AT 9:30AM TAKE ALL EYE DROPS TO OFFICE VISIT [facility] Work Phone: Summary Purpose Family History No Family History Records Found Relationship Condition Age at Onset Recorded Date/T victorino Not Specified Malignant neoplasm of prostate Unknown Relationship Condition Age at Onset Recorded Date/T victorino Unknown Family Anesthesia Reaction?No Unknown October 02, 2021 10:31am Advance Directives No Advanced Directives Records FoundDocuments on File Type Date Recorded 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 Advance Directives and Living Will Power of Data Communications Technician Advance Directive Response Recorded Date/ Time Advance Directives No December 24, 2020 9:04am Advance Directive Response Recorded Date/ Time Advance Directives No January 9:07am Advance Directive Response Recorded Date/ Time Advance Directives No October 02 10:31am Organ Donor No January 24, 2 019 4:58pm Power of Data Communications Technician No October 02 10:31am Tissue Donor No January 24, 2 019 4:58pm Assessments Diagnosis Acquired hypothyroidism Unspecified hypothyroidism Mixed hyperlipidemia Chief Complaint and Reason for Visit Chief Complaint SPS.MRIRES Chief Complaint INJECTFU Chief Complaint M48.02,R29.898,R20.2 CAT WITH IOL LEFT EYE ([place] 09/24 DD) Additional Source Comments INFORMATION SOURCE (unrecogn ized section and content) DATE CREATED AUTHOR 08/07/2019 [facility] DATE CREATED AUTHOR AUTHOR'S ORGANIZ ATION 08/19/2019 [facility] DATE CREATED AUTHOR AUTHOR'S ORGANIZ ATION 09/04/2021 [facility] DATE CREATED AUTHOR AUTHOR'S ORGANIZ ATION 09/04/2021 [facility] DATE CREATED AUTHOR AUTHOR'S ORGANIZ ATION 2021 [facility]) DATE CREATED AUTHOR AUTHOR'S ORGANIZ ATION 03/02/2022 [facility] Goals (unrecognized section and content) Goals may be documented in a n alternate sectionGoals may be documented in an alternate section FOR RECORDS PERTAINING TO PATIENTS WHO ARE OR HAVE BEEN ENROLLED IN A CHEMICAL DEPENDENCY/SUBSTANCEABUSE PROGRAM, SOME INFORMATION MAY BE OMITTED. This clinical summary was aggregated from multiple sources. Caution should be exercised in using it in the provision of clinical care. This summary normalizes information from multiple sources, and as a consequence, information in this document may materially change the coding, format and clinical context of patient data. In addition, data may be omitted in some cases. CLINICAL DECISIONS SHOULD BE BASED ON THE PRIMARY CLINICAL RECORDS. [facility] [employer] [facility]. provides no warranty or guarantee of the accuracy or completeness of information in this document.
--- NOTE | 2023-07-27 21:31 | ED.FALL1 ---
HPI HPI - Fall General Chief Complaint: Fall Stated Complaint: FALL Time Seen by Provider: 07/27/23 21:24 Source: patient Mode of arrival: Wheelchair Limitations: no limitations History of Present Illness HPI Narrative: This 77-year-old female who is right-hand dominant presents for evaluation of right humerus and elbow pain as well as left lateral foot pain and ankle pain after she fell at home. The patient states she was walking along some pavers and her left foot slipped off of the pavers causing her to fall and she fell onto her left elbow. She denies striking her head. She denies any neck or back pain. She denies any dizziness or syncope. She is not having any chest pain or shortness of breath. She states that she was able to ambulate after falling and went to [facility] but was having pain in [place] and decided to leave [place] early to come to the hospital. Related Data Home Medications ?Medication ?Instructions ?Recorded ?Confirmed amlodipine 2.5 mg tablet mg 07/27/23 levothyroxine 75 mcg tablet mcg 07/27/23 pantoprazole 40 mg tablet,delayed mg PO 07/27/23 release simvastatin 20 mg tablet mg 07/27/23 Allergies Allergy/AdvReac Type Severity Reaction Status Date / Time No Known Drug Allergies Allergy Verified 07/27/23 21:28 Opioid HPI Opioid Management Most Recent Pain and Opioid Data: Last Pain Scale 6 07/27/23 22:16 Review of Systems ROS Status of ROS 10 or more systems reviewed and unremarkable except as noted in history and below [facility] Medical History (Updated 07/27/23 @ 23:57 by Lynne Brandon MD) Hypothyroidism ?E03.9 - Hypothyroidism, unspecified (ICD-10) Chronic hypertension ?I10 - Essential (primary) hypertension (ICD-10) Exam Narrative Exam Narrative: Vital signs and Nursing Notes reviewed: Patient is afebrile with a normal pulse, blood pressure is elevated at 174/88, she is not hypoxic a pulse ox of 98% on room air General: Thin elderly female, she is awake, alert, oriented, no acute distress, lying comfortably on the stretcher, she winces with pain with movement of her right elbow, GCS 15 HEENT: Normocephalic atraumatic, mucous membranes are moist and pink, eyes are clear, normal conjunctiva, vision is grossly intact Neck: Supple, no meningeal signs, no anterior or posterior cervical lymphadenopathy, no midline bony vertebral tenderness or step-off Chest: Lungs are clear to auscultation with good air entry, there is no wheezing rhonchi or rales appreciated no accessory muscle use, patient is speaking in complete sentences-no chest wall tenderness to palpation CVS: Regular rate and rhythm S1-S2, no murmurs rubs or gallops, pulses are brisk and equal bilaterally ABD: Soft, nondistended, nontender, no rebound guarding or rigidity, bowel sounds are normal, no pulsatile masses appreciated Extremities: There is tenderness and mild swelling to the right lateral elbow area. Decreased range of motion appreciated due to pain. She is able to move her fingers but reluctant to due to referred pain from her fingers into her elbow. There is mild tenderness along the distribution of her right humerus with no bony deformity. There is no finger, hand wrist or radius tenderness to palpation. There is tenderness to the left lateral foot with no bony deformity ecchymosis or abrasion noted Skin: Normal in appearance without rash,pallor, petechiae or purpura Neuro: No focal deficits Constitutional Vital Signs, click to edit/add: Last Vital Signs Temp 97.6 F 07/27/23 21:23 Pulse 70 07/27/23 21:23 Resp 18 07/27/23 21:23 BP 174/88 H 07/27/23 21:23 Pulse Ox 98 07/27/23 21:23 O2 Del Method Room Air 07/27/23 21:23 Course Vital Signs Vital signs: Vital Signs Temperature 97.6 F 07/27/23 21:23 Pulse Rate 70 07/27/23 21:23 Respiratory Rate 18 07/27/23 21:23 Blood Pressure 174/88 H 07/27/23 21:23 Pulse Oximetry 98 07/27/23 21:23 Oxygen Delivery Method Room Air 07/27/23 21:23 Temperature 97.6 F 07/27/23 21:23 Pulse Rate 70 07/27/23 21:23 Respiratory Rate 18 07/27/23 21:23 Blood Pressure 174/88 H 07/27/23 21:23 Pulse Oximetry 98 07/27/23 21:23 Oxygen Delivery Method Room Air 07/27/23 21:23 Discharge Plan Discharge Stand Alone Forms: Portal Instructions Chief Complaint: Fall Clinical Impression: Fall from standing, Fracture of head of right radius, Other sprain of left foot, initial encounter Patient Disposition: Home, Self-Care Time of Disposition Decision: 23:56 Condition: Good Prescriptions / Home Meds: No Action amlodipine 2.5 mg tablet levothyroxine 75 mcg tablet pantoprazole 40 mg tablet,delayed release (DR/EC) PO simvastatin 20 mg tablet Print Language: Macanese Instructions: Elbow Fracture (ED), Fall Prevention for Older Adults (ED), Foot Sprain (ED) Referrals: Luca Vanegas MD [Primary Care Provider] - 1 week Jass Harrington MD [Physician] - 1 week
--- NOTE | 2023-07-27 21:35 | XR_ITS ---
The [address] [address] Patient Name: CRISTINE AVELAR MRN: [id number] date: 1945 Sex: F Assigned Patient Location: ER Current Patient Location: Accession/Order Number: [id number] Exam Date: 07/27/2023 21:48 Report Date: 07/27/2023 22:42 At the request of: SHREYA MARKER Procedure: XR ankle LT min 3V EXAM: XR ankle LT min 3V HISTORY: fall, left ankle pain COMPARISON: None. TECHNIQUE: 3 views of the left ankle FINDINGS: No acute fracture seen. The ankle mortise is intact. Joint alignment is normal. Approximately 2 cm lucency is seen about the lateral aspect of the distal tibia. CT versus preferably MRI of the left ankle with and without contrast is suggested for better evaluation. The visualized soft tissues appear unremarkable. Small posterior calcaneal spur is seen. XR/XR ankle LT min 3V IMPRESSION: No acute fracture or malalignment. Approximately 2 cm lucency is seen about the lateral aspect of the distal tibia. CT versus preferably MRI of the left ankle with and without contrast is suggested for better evaluation. Electronically authenticated by: GINA GLEZ Date: 07/27/2023 22:42
--- NOTE | 2023-07-27 21:35 | XR_ITS ---
The [address] [address] Patient Name: CRISTINE AVELAR MRN: [id number] date: 1945 Sex: F Assigned Patient Location: ER Current Patient Location: Accession/Order Number: [id number] Exam Date: 07/27/2023 21:48 Report Date: 07/27/2023 23:27 At the request of: SRHEYA MARKER Procedure: XR elbow RT min 3V EXAM: XR elbow RT min 3V, XR foot LT min 3V, XR humerus RT HISTORY: fall, elbow pain COMPARISON: None. TECHNIQUE: 2 views of the right humerus, 3 views of the right elbow, and 3 views of the left ankle were obtained. FINDINGS: Right humerus and right elbow: There is a minimally displaced fracture through the radial head. The right humeral head is well-seated on the glenoid. The right acromioclavicular and coracoclavicular distances are preserved. The imaged right lung is clear. There is a right elbow joint effusion. Left foot: No acute fracture or dislocation is seen. There are scattered degenerative changes. There are tiny plantar and Achilles calcaneal enthesophytes. There is no significant left ankle joint effusion. XR/XR elbow RT min 3V IMPRESSION: 1. Right radial head fracture with an elbow joint effusion. 2. No acute fracture or dislocation of the left foot is seen. If pain persists, repeat radiographs are recommended in 7-10 days. Electronically authenticated by: Bruno ANDERSON Date: 07/27/2023 23:27
--- NOTE | 2023-07-27 21:35 | XR_ITS ---
The [address] [address] Patient Name: CRISTINE AVELAR MRN: [id number] date: 1945 Sex: F Assigned Patient Location: ER Current Patient Location: Accession/Order Number: [id number] Exam Date: 07/27/2023 21:48 Report Date: 07/27/2023 23:27 At the request of: SHREYA MARKER Procedure: XR foot LT min 3V EXAM: XR elbow RT min 3V, XR foot LT min 3V, XR humerus RT HISTORY: fall, elbow pain COMPARISON: None. TECHNIQUE: 2 views of the right humerus, 3 views of the right elbow, and 3 views of the left ankle were obtained. FINDINGS: Right humerus and right elbow: There is a minimally displaced fracture through the radial head. The right humeral head is well-seated on the glenoid. The right acromioclavicular and coracoclavicular distances are preserved. The imaged right lung is clear. There is a right elbow joint effusion. Left foot: No acute fracture or dislocation is seen. There are scattered degenerative changes. There are tiny plantar and Achilles calcaneal enthesophytes. There is no significant left ankle joint effusion. XR/XR foot LT min 3V IMPRESSION: 1. Right radial head fracture with an elbow joint effusion. 2. No acute fracture or dislocation of the left foot is seen. If pain persists, repeat radiographs are recommended in 7-10 days. Electronically authenticated by: Bruno ANDERSON Date: 07/27/2023 23:27
--- NOTE | 2023-07-27 21:35 | XR_ITS ---
The [address] [address] Patient Name: CRISTINE AVELAR MRN: [id number] date: 1945 Sex: F Assigned Patient Location: ER Current Patient Location: ER Accession/Order Number: [id number] Exam Date: 07/27/2023 21:48 Report Date: 07/27/2023 23:27 At the request of: SHREYA MARKER Procedure: XR humerus RT EXAM: XR elbow RT min 3V, XR foot LT min 3V, XR humerus RT HISTORY: fall, elbow pain COMPARISON: None. TECHNIQUE: 2 views of the right humerus, 3 views of the right elbow, and 3 views of the left ankle were obtained. FINDINGS: Right humerus and right elbow: There is a minimally displaced fracture through the radial head. The right humeral head is well-seated on the glenoid. The right acromioclavicular and coracoclavicular distances are preserved. The imaged right lung is clear. There is a right elbow joint effusion. Left foot: No acute fracture or dislocation is seen. There are scattered degenerative changes. There are tiny plantar and Achilles calcaneal enthesophytes. There is no significant left ankle joint effusion. XR/XR humerus RT IMPRESSION: 1. Right radial head fracture with an elbow joint effusion. 2. No acute fracture or dislocation of the left foot is seen. If pain persists, repeat radiographs are recommended in 7-10 days. Electronically authenticated by: Bruno ANDERSON Date: 07/27/2023 23:27
[2023-07-27] MEDS: ACETAMINOPHEN 325 MG TABLET 650 MG PO (22:04)
[2023-07-27] MEDS: IBUPROFEN 400 MG TABLET PO (22:04)
[2023-07-28] MEDS: HYDROCODONE/ACET 5-325 MG TABLET 2 TAB PO (00:13)
[2023-07-28] MEDS: ONDANSETRON 4 MG RAPDIS TABLET SL (00:13)
== END 2023-07-28 00:21 | disposition home or self-care (01) ==
PROVIDERS: Emergency Provider Emergency Medicine; PCP Family Medicine
DX: S52.121A Displaced fracture of head of right radius, initial encounter for closed fracture (principal); S93.602A Unspecified sprain of left foot, initial encounter; W01.10XA Fall on same level from slipping, tripping and stumbling with subsequent striking against unspecified object, initial encounter; I10 Essential (primary) hypertension
CPT/HCPCS: 73060; 73080; 73610; 73630; 99284

== ENCOUNTER 2023-08-08 10:41 | Outpatient (OUT) | payer MEDICARE, SELFPAY ==
--- NOTE | 2023-08-08 | XR_ITS ---
The [address] [address] Patient Name: CRISTINE AVELAR MRN: [id number] date: 1945 Sex: F Assigned Patient Location: Current Patient Location: Accession/Order Number: [id number] Exam Date: 08/08/2023 10:45 Report Date: 08/09/2023 10:14 At the request of: THERON LARA Procedure: XR elbow RT min 3V PROCEDURE: XR elbow RT min 3V HISTORY: RIGHT ELBOW PAIN , fall , recent radial head fracture COMPARISON: XR elbow right 07/27/2023 FINDINGS: BONES:Slight angulation at lateral margin of radial neck, but improved compared to prior study. Slight band of sclerosis within trabecula and junction of radial neck and head suggesting ongoing bone healing. No involvement of the articular surface. SOFT TISSUES:No visible soft tissue swelling. EFFUSION:Joint effusion. OTHER: Negative. XR/XR elbow RT min 3V IMPRESSION: 1. Suspect early changes of bone healing involving nondisplaced radial neck fracture/margin of head. 2. Persistent joint effusion. Electronically authenticated by: THERON MEHTA Date: 08/09/2023 10:14
== END 2023-08-08 10:42 | disposition home or self-care (01) ==
LOC: EC 10:41
PROVIDERS: PCP Family Medicine; Visit Provider Orthopaedic Surgery
DX: S52.124D Nondisplaced fracture of head of right radius, subsequent encounter for closed fracture with routine healing (principal)
CPT/HCPCS: 73080

== ENCOUNTER 2023-08-17 09:41 | Outpatient (OUT) | payer MEDICARE, SELFPAY ==
--- NOTE | 2023-08-17 09:44 | MR_ITS ---
The [address] [address] Patient Name: CRISTINE AVELAR MRN: [id number] date: 1945 Sex: F Assigned Patient Location: MRI Current Patient Location: MRI Accession/Order Number: [id number] Exam Date: 08/17/2023 10:21 Report Date: 08/20/2023 08:18 At the request of: THERON LARA Procedure: MR ankle LT wo con HISTORY: Prior sprain of the left ankle. The patient was found to have a lucent focus in the distal left tibia on prior radiographs and may. Please evaluate. MR ankle LT wo con: 08/17/2023 10:21 AM EDT COMPARISON: Radiographs left ankle and foot 07/27/2023. TECHNIQUE: Multiplanar, multisequence MRI images of the ankle were obtained without contrast. FINDINGS: LIGAMENTS: The anterior talofibular ligament appears within normal limits. The calcaneofibular ligament, posterior talofibular ligament, and distal tibiofibular ligaments appear within normal limits. The deltoid ligament complex appears within normal limits. TENDONS: There is a longitudinal split tear of the retromalleolar and inframalleolar portion of the peroneus brevis tendon spanning approximately 2 cm in length. There is no tenosynovitis of the peroneal tendon sheath. The other tendons of the ankle appear within normal limits. SINUS TARSI AND TARSAL TUNNEL: No space-occupying mass is seen in the tarsal tunnel or the sinus tarsi. BONES AND JOINTS: The bone marrow signal intensity is age appropriate. No unstable osteochondral defect of the tibiotalar joint is identified. There is a small bone contusion within the plantar aspect of the talar head. There is also a small bone contusion involving the posterolateral aspect of the calcaneus. There is a large bone contusion involving the plantar and distal aspect of the cuboid and a small bone contusion within the adjacent anterior process of the calcaneus. There is an intraosseous lipoma within the lateral aspect of the distal tibial metadiaphysis spanning 2 cm in length and this corresponds to the lucent focus seen in this region on the prior radiographs. PLANTAR FASCIA: There is no abnormal thickening or abnormal signal intensity of the plantar fascia and there is no surrounding soft tissue edema to suggest plantar fasciitis. SOFT TISSUES: No significant soft tissue swelling is seen. MR/MR ankle LT wo con IMPRESSION: 1. There are bone contusions involving the cuboid, the calcaneus, and the plantar aspect of the talar head. 2. Longitudinal split tear of the peroneus brevis tendon spanning 2 cm in length without a tenosynovitis. 3. No ligament injury. 4. There is an ovoid 2 cm lipoma within the lateral aspect of the distal tibial metadiaphysis corresponding to the lucent focus seen in this region on the prior radiographs. This is a benign finding. Electronically authenticated by: PRISCILLA SAHU Date: 08/20/2023 08:18
--- OUTSIDE RECORDS SUMMARY | 2023-08-17 09:56 | XMS_ITS | CCD ---
Author Organization [facility] Care Team Providers Care Emergency Medicine Nurse Practitioner Name Role Phone SANJANA DE LA CRUZ Primary Care Unavailable BONETTI, SUE Primary Care Unavailable BONETTI, SUE Primary Care Unavailable BONETTI, SANJANA PEOPLES Referring Unavailable BONETTI, SANJANA PEOPLES Primary Care Unavailable Bonettgianluca, Sanjana Peoples Primary Care Provider JONO, SANJANA PEOPLES Primary Care Unavailable Bonettgianluca, DO Kimmy Primary Care Provider [phone] DO Kimmy De La Cruz Attending Provider [phone] MD Andrez Hartman Attending Provider [phone] Kimmy De La Cruz Attending Unavailable Bonetti, Kimmy Primary Care Unavailable Andrez Hartman Attending Unavailable Jono, Kimym Primary Care Unavailable PHIL ROBLEDO Consulting Unavailable PHIL ROBLEDO Admitting Unavailable PHIL ROBLEDO Attending Unavailable WANDA HONG Consulting Unavailable Allergies Allergy Classification Reported Allergen(s) Allergy Type Date of Onset Reaction(s) Facility (1 source) cefdinir Drug Allergy 11-16-2018 [place], [place] Medications Current Medications Medication Drug Class(es) [...] Interpretation Reference Range [facility] SARS-CoV-2 (COVID-19) RNA TREVOR+probe Ql (Unsp spec) Not detected Normal NOT DETECTED [facility] Comment on above: Result Comment: This test is not yet approved or cleared by the [place] FDA. When there are no FDA-approved or cleared tests available, and other criteria are met, FDA can make tests available under an emergency access mechanism called an Emergency Use Authorization (EUA). The EUA for this test is supported by the [place] of Health and Human Service's (HHS's) declaration [...] consistent with SARS-CoV-2. Performed By: #### C [facility] #### [facility] [address] [place] [address] Dr. Fabrice Garza INFLUENZA A AND B AGon 02-28 INFLUANEGH SEE BELOW Normal [facility] Comment on above: Result Comment: Nega tive for Flu A protein angiten. Infection due to Flu A cannot be ruled out. Flu A angiten in the sample may be below the detection limit of the test. Performed By: #### I NFLUAB #### [facility] [address] [place] [address] Dr. Fabrice Garza INFLUBNEG SEE BELOW Normal [facility] Comment on above: Result Comment: Nega tive for Flu B protein antigen. Infection due to Flu B cannot be ruled out. Flu B antigen in the sample may be below the detection limit of the test. Performed By: #### I NFLUAB #### [facility] [address] [place] [address] Dr. Fabrice Garza INFLUENZA A AG Negative Normal NEGATIVE SEE COMMENT [facility] Comment on above: Performed By: #### I NFLUAB #### [facility] [address] [place] [address] Dr. Fabrice Garza INFLUENZA B AG Negative Normal NEGATIVE SEE COMMENT [facility] Comment on above: Performed By: #### I NFLUAB #### [facility] [address] [place] [address] Dr. Fabrice Garza INTERNAL CONTROLS Within Normal Limits Normal Wi thin Normal Limits [facility] Comment on above: Performed By: #### I NFLUAB #### [facility] [address] [place] [address] Dr. Fabrice Garza XR CHEST 1 Von [...] WANDA HONG Date: 2022-02-28 16:37 Normal [facility] XR CERVICAL SPINE (2-3 VIEWS )on [...] Kranthi Ribeiro MD 09/04/21 Final result Normal [facility] CBC With Platelet and Differ entialon 09-03-2021 Abs Imm Granulocytes 0.01 E9/L Normal [facility] Absolute Basophils 0.04 E9/L Normal 0.00-0.20 [facility] Absolute Eosinophils 0.12 E9/L Normal 0.05-0.50 [facility] Absolute Lymphocytes 0.90 E9/L Low 1.50-4.00 [facility] Absolute Monocytes 0.37 E9/L Normal 0.10-0.95 [facility] Absolute Neutrophils 2.34 E9/L Normal 1.80-7.30 [facility] Basophils/100 WBC (Bld) 1.1 % Normal 0.0-2.0 [facility] Eosinophils/100 WBC (Bld) 3.2 % Normal 0.0-6.0 [facility] Hematocrit (Bld) [Volume fraction] 41.7 % Normal 34.0-48.0 [facility] Hemoglobin (Bld) [Mass/Vol] 12.8 g/dL Normal 11.5-15.5 [facility] Imm Granulocytes 0.3 % Normal 0.0-5.0 [facility] Lymphocytes/100 WBC (Bld) 23.8 % Normal 20.0-42.0 [facility] MCH (RBC) [Entitic mass] 30.5 pg Normal 26.0-35.0 [facility] MCHC 30.7 % Low 32.0-34.5 [facility] MCV (RBC) [Entitic vol] 99.5 fL Normal 80.0-99.9 [facility] Monocytes/100 WBC (Bld) 9.8 % Normal 2.0-12.0 [facility] Neutrophils/100 WBC (Bld) 61.8 % Normal 43.0-80.0 [facility] Platelet Count 232 E9/L Normal 130-450 [facility] Platelet mean volume (Bld) [Entitic vol] 12.3 fL High 7.0-12.0 [facility] RBC 4.19 E12/L Normal 3.50-5.50 [facility] RDW 12.6 fL Normal 11.5-15.0 [facility] WBC 3.8 E9/L Low 4.5-11.5 [facility] Comprehensive Metabolic Pane rosie 09-03-2021 Albumin [Mass/Vol] 4.8 g/dL Normal 3.5-5.2 [facility] ALP [Catalytic activity/Vol] 66 U/L Normal 35-104 [facility] ALT [Catalytic activity/Vol] 11 U/L Normal 0-32 [facility] Anion gap [Moles/Vol] 15 mmol/L Normal 7-16 [facility] AST [Catalytic activity/Vol] 23 U/L Normal 0-31 [facility] Bilirubin [Mass/Vol] 0.3 mg/dL Normal 0.0-1.2 [facility] Calcium [Mass/Vol] 9.8 mg/dL Normal 8.6-10.2 [facility] Chloride [Moles/Vol] 102 mmol/L Normal 98-107 [facility] CO2 [Moles/Vol] 25 mmol/L Normal 22-29 [facility] Creatinine [Mass/Vol] 0.8 mg/dL Normal 0.5-1.0 [facility] GFR Calculated >60 Normal >=60 [facility] Comment on above: Result Comment: Color Room Attendant vika Kidney Disease: less than 60 ml/min/1.73 sq.m. Kidney Failure: less than 15 ml/min/1.73 sq.m. Results valid for patients 18 years and older. GFR/1.73 sq M.predicted among blacks MDRD (S/P/Bld) [Vol rate/Area] mL/min/{1.73_m2} Normal [facility] Glucose [Mass/Vol] 88 mg/dL Normal 74-99 [facility] Potassium [Moles/Vol] 4.3 mmol/L Normal 3.5-5.0 [facility] Protein [Mass/Vol] 7.2 g/dL Normal 6.4-8.3 [facility] Sodium [Moles/Vol] 142 mmol/L Normal 132-146 [facility] Urea nitrogen [Mass/Vol] 12 mg/dL Normal 6-23 [facility] Lipid Panelon 09-03-2021 Cholesterol [Mass/Vol] 210 mg/dL High 0-199 [facility] Cholesterol in HDL [Mass/Vol] 95 mg/dL Normal >40 [facility] Cholesterol in LDL [Mass/Vol] 98 mg/dL Normal 0-99 [facility] Triglyceride [Mass/Vol] 86 mg/dL Normal 0-149 [facility] VLDL Cholesterol (Calculated) 17 mg/dL Normal [facility] TSH w/out Reflexon TSH w/out Reflex 0.618 uIU/mL Normal 0.270-4.200 [facility] Thyroxine Freeon 09-03-2021 Thyroxine Free 2.12 ng/dL High 0.93-1.70 [facility] UR Microalbumin Randomon UR Microalbumin Random <12.0 Normal Not Established [facility] XR THORACIC SPINE (3 VIEWS)o n 09-03-2021 [...] Wanda Akers MD 09/03/21 Final result Normal [facility] Thyroxine Freeon 08-18-2019 Thyroxine Free 1.85 ng/dL High 0.93-1.70 [facility] CBC Auto Differentialon 08-05 Basophils (Bld) [#/Vol] 0.04 10*3/uL [place] Basophils/100 WBC (Bld) 1.0 % 0 - 2 % [place] Eosinophils (Bld) [#/Vol] 0.16 10*3/uL [place] Eosinophils/100 WBC (Bld) 4.1 % 0 - 6 % [place] Erythrocyte distribution width (RBC) [Ratio] 12.3 fL 11.5 - 15 fL [place] Hematocrit (Bld) [Volume fraction] 44.4 % 34 - 48 % [place] Hemoglobin (Bld) [Mass/Vol] 14.2 g/dL 11.5 - 15.5 g/dL [place] Immature granulocytes (Bld) [#/Vol] 0.01 10*3/uL E9/L [place] Immature granulocytes/100 WBC (Bld) 0.3 % 0 - 5 % [place] Interpretation and review of laboratory results Abnormal [place] Lymphocytes (Bld) [#/Vol] 1.04 10*3/uL [place] Lymphocytes/100 WBC (Bld) 26.5 % 20 - 42 % [place] MCH (RBC) [Entitic mass] 31.8 pg 26 - 35 pg [place] MCHC (RBC) [Mass/Vol] 32.0 % 32 - 34.5 % [place] MCV (RBC) [Entitic vol] 99.3 fL 80 - 99.9 fL [place] Monocytes (Bld) [#/Vol] 0.35 10*3/uL [place] Monocytes/100 WBC (Bld) 8.9 % 2 - 12 % [place] Neutrophils Absolute 2.32 [place] Neutrophils/100 WBC (Bld) 59.2 % 43 - 80 % [place] Platelet mean volume (Bld) [Entitic vol] 12.5 fL High 7 - 12 fL [place] Platelets (Bld) [#/Vol] 166 10*3/uL [place] RBC (Bld) [#/Vol] 4.47 10*6/uL [place] WBC (Bld) [#/Vol] 3.9 10*3/uL Low [place] CBC With Platelet and Differ entialon 08-17-2019 Abs Imm Granulocytes 0.01 E9/L Normal [facility] Basophils (Bld) [#/Vol] 0.04 E9/L Normal 0.00-0.20 [facility] Basophils/100 WBC (Bld) 1.0 % Normal 0.0-2.0 [facility] Eosinophils (Bld) [#/Vol] 0.16 E9/L Normal 0.05-0.50 [facility] Eosinophils/100 WBC (Bld) 4.1 % Normal 0.0-6.0 [facility] Erythrocyte distribution width (RBC) [Ratio] 12.3 fL Normal 11.5-15.0 [facility] Hematocrit (Bld) [Volume fraction] 44.4 % Normal 34.0-48.0 [facility] Hemoglobin (Bld) [Mass/Vol] 14.2 g/dL Normal 11.5-15.5 [facility] Imm Granulocytes 0.3 % Normal 0.0-5.0 [facility] Lymphocytes (Bld) [#/Vol] 1.04 E9/L Low 1.50-4.00 [facility] Lymphocytes/100 WBC (Bld) 26.5 % Normal 20.0-42.0 [facility] MCH (RBC) [Entitic mass] 31.8 pg Normal 26.0-35.0 [facility] MCHC (RBC) [Mass/Vol] 32.0 % Normal 32.0-34.5 [facility] MCV (RBC) [Entitic vol] 99.3 fL Normal 80.0-99.9 [facility] Monocytes (Bld) [#/Vol] 0.35 E9/L Normal 0.10-0.95 [facility] Monocytes/100 WBC (Bld) 8.9 % Normal 2.0-12.0 [facility] Neutrophils (Bld) [#/Vol] 2.32 E9/L Normal 1.80-7.30 [facility] Neutrophils/100 WBC (Bld) 59.2 % Normal 43.0-80.0 [facility] Platelet mean volume (Bld) [Entitic vol] 12.5 fL High 7.0-12.0 [facility] Platelets (Bld) [#/Vol] 166 E9/L Normal 130-450 [facility] RBC (Bld) [#/Vol] 4.47 E12/L Normal 3.50-5.50 [facility] WBC (Bld) [#/Vol] 3.9 E9/L Low 4.5-11.5 [facility] Comprehensive Metabolic Pane rosie 08-17-2019 Albumin [Mass/Vol] 4.4 g/dL Normal 3.5-5.2 [facility] ALP [Catalytic activity/Vol] 69 U/L Normal 35-104 [facility] ALT [Catalytic activity/Vol] 9 U/L Normal 0-32 [facility] Anion gap [Moles/Vol] 12 mmol/L Normal 7-16 [facility] AST [Catalytic activity/Vol] 20 U/L Normal 0-31 [facility] Bilirubin [Mass/Vol] 0.6 mg/dL Normal 0.0-1.2 [facility] Calcium [Mass/Vol] 10.2 mg/dL Normal 8.6-10.2 [facility] Chloride [Moles/Vol] 100 mmol/L Normal 98-107 [facility] CO2 [Moles/Vol] 29 mmol/L Normal 22-29 [facility] Creatinine [Mass/Vol] 0.8 mg/dL Normal 0.5-1.0 [facility] GFR/1.73 sq M predicted among blacks MDRD (S/P/Bld) [Vol rate/Area] mL/min/{1.73_m2} Normal [facility] GFR/1.73 sq M predicted among non-blacks MDRD (S/P/Bld) [Vol rate/Area] mL/min/{1.73_m2} Normal >=60 [facility] Comment on above: Result Comment: Color Room Attendant vika Kidney Disease: less than 60 ml/min/1.73 sq.m. Kidney Failure: less than 15 ml/min/1.73 sq.m. Results valid for patients 18 years and older. Glucose [Mass/Vol] 92 mg/dL Normal 74-99 [facility] Potassium [Moles/Vol] 5.1 mmol/L High 3.5-5.0 [facility] Protein [Mass/Vol] 7.1 g/dL Normal 6.4-8.3 [facility] Sodium [Moles/Vol] 141 mmol/L Normal 132-146 [facility] Urea nitrogen [Mass/Vol] 11 mg/dL Normal 8-23 [facility] Albumin [Mass/Vol] 4.4 g/dL 3.5 - 5.2 g/dL [place], [place] ALP [Catalytic activity/Vol] 69 U/L 35 - 104 U/L [place] ALT [Catalytic activity/Vol] 9 U/L 0 - 32 U/L [place] Anion gap [Moles/Vol] 12 mmol/L 7 - 16 mmol/L [place] AST [Catalytic activity/Vol] 20 U/L 0 - 31 U/L [place] Bilirubin Ql (U) 0.6 mg/dL 0 - 1.2 mg/dL [place] Calcium [Mass/Vol] 10.2 mg/dL 8.6 - 10.2 mg/dL [place] Chloride [Moles/Vol] 100 mmol/L 98 - 107 mmol/L [place] CO2 [Moles/Vol] 29 mmol/L 22 - 29 mmol/L [place] Creatinine [Mass/Vol] 0.8 mg/dL 0.5 - 1 mg/dL [place] GFR >60 [place] GFR Non- >60 >=60 mL/min/1.73 [place] Comment on above: Chronic Kidney Disea se: less than 60 ml/min/1.73 sq.m. Kidney Failure: less than 15 ml/min/1.73 sq.m. Results valid for patients 18 years and older. Glucose [Mass/Vol] 92 mg/dL 74 - 99 mg/dL [place] Interpretation and review of laboratory results Abnormal [place] Potassium [Moles/Vol] 5.1 mmol/L High 3.5 - 5 mmol/L [place] Protein [Mass/Vol] 7.1 g/dL 6.4 - 8.3 g/dL [place] Sodium [Moles/Vol] 141 mmol/L 132 - 146 mmol/L [place] Urea nitrogen [Mass/Vol] 11 mg/dL 8 - 23 mg/dL [place] Lipid Panelon 08-17-2019 Cholesterol [Mass/Vol] 192 mg/dL Normal 0-199 [facility] Cholesterol in HDL [Mass/Vol] 84 mg/dL Normal >40 [facility] Cholesterol in LDL [Mass/Vol] 93 mg/dL Normal 0-99 [facility] Triglyceride [Mass/Vol] 73 mg/dL Normal 0-149 [facility] VLDL Cholesterol (Calculated) 15 mg/dL Normal [facility] Cholesterol [Mass/Vol] 192 mg/dL 0 - 199 mg/dL [place] Cholesterol in HDL [Mass/Vol] 84 mg/dL >40 [place] Cholesterol in LDL [Mass/Vol] 93 mg/dL 0 - 99 mg/dL [place] Triglyceride [Mass/Vol] 73 mg/dL 0 - 149 mg/dL [place] VLDL Cholesterol Calculated 15 mg/dL [place] T4, Freeon 08-17-2019 Free T4 [Mass/Vol] 1.85 ng/dL High 0.93 - 1.7 ng/dL [place] Interpretation and review of laboratory results Abnormal [place] TSH w/out Reflexon 0 TSH Qn 2.150 uIU/mL Normal 0.270-4.200 [facility] TSH without Reflexon 020 TSH Qn 2.150 m[IU]/L Kerry Leger h- DEVON ESPINOZA XR KNEE RIGHT (3 VIEWS)on XR KNEE RIGHT (3 VIEWS) EXAMINATION: THREE XRAY VIEWS OF THE RIGHT KNEE 08/06/2019 4:58 pm COMPARISON: None. HISTORY: ORDERING SYSTEM PROVIDED HISTORY: Right hip pain Pain FINDINGS: There is mild infrapatellar soft tissue swelling. [id number] patellofemoral joint space narrowing. There is a [...] Maury Ojeda MD 08/07/19 Final result Normal [facility] XR HIP RIGHT (2-3 VIEWS)on 08-06-2019 [...] Alex Frias MD 08/06/19 Final result Normal [facility] XR HIP 2-3 VW W PELVIS [...] Kranthi Solis DO 01/25/19 Final result Normal [facility] XR LUMBAR SPINE (2-3 VIEWS)o n [...] Kranthi Solis DO 01/25/19 Final result Normal [facility] Vital Signs Date Time Vital Sign Value Performing Clinician Geraldo smith 10-02-2021 13:15-0400 Diastolic blood pressure 74 mm[Hg] DO Kimmy Bonetti Work Phone: [facility] Work Phone: 10-02-2021 13:15-0400 Heart rate 76 /min DO Kimmy Bonetti Work Phone: [facility] Work Phone: 10-02-2021 13:15-0400 Respiratory rate 18 /min DO Kimmy Bonetti Work Phone: [facility] Work Phone: 10-02-2021 13:15-0400 SaO2% (BldA) [Mass fraction] 97 % DO Kimmy Bonetti Work Phone: [facility] Work Phone: 10-02-2021 13:15-0400 Systolic blood pressure 133 mm[Hg] DO Kimmy Bonetti Work Phone: [facility] Work Phone: 10-02-2021 12:53-0400 Body temperature 97.3 [degF] DO Kimmy Bonetti Work Phone: [facility] Work Phone: 10-02-2021 10:18-0400 Body height 160.02 cm DO Kimmy De La Cruz Work Phone: [facility] Work Phone: 10-02-2021 10:18-0400 Body mass index (BMI) [Ratio] 19.1 kg/m2 DO Kimmy De La Cruz Work Phone: [facility] Work Phone: 10-02-2021 10:18-0400 Body weight 48.99 kg DO Kimmy De La Cruz Work Phone: [facility] Work Phone: 01-14-2021 09:45-0500 Body temperature 97.8 [degF] [facility] Phone: 01-14-2021 09:45-0500 Diastolic blood pressure 74 mm[Hg] [facility] Phone: 01-14-2021 09:45-0500 Heart rate 60 /min [facility] Phone: 01-14-2021 09:45-0500 Respiratory rate 16 /min [facility] Phone: 01-14-2021 09:45-0500 SaO2% (BldA) [Mass fraction] 99 % [facility] Phone: 01-14-2021 09:45-0500 Systolic blood pressure 160 mm[Hg] [facility] Phone: 01-12-2021 17:29-0500 Body height 160.02 cm [facility] Phone: 01-12-2021 17:29-0500 Body mass index (BMI) [Ratio] 19.5 kg/m2 [facility] Phone: 01-12-2021 17:29-0500 Body weight 49.9 kg [facility] Phone: 12-24-2020 10:00-0400 Body temperature 97 [degF] [facility] Phone: 12-24-2020 10:00-0400 Diastolic blood pressure 66 mm[Hg] [facility] Phone: 12-24-2020 10:00-0400 Heart rate 71 /min [facility] Phone: 12-24-2020 10:00-0400 Respiratory rate 16 /min [facility] Phone: 12-24-2020 10:00-0400 SaO2% (BldA) [Mass fraction] 97 % [facility] Phone: 12-24-2020 10:00-0400 Systolic blood pressure 158 mm[Hg] [facility] Phone: 12-18-2020 12:08-0400 Body height 160.02 cm [facility] Phone: 12-18-2020 12:08-0400 Body mass index (BMI) [Ratio] 19.5 kg/m2 [facility] Phone: 12-18-2020 12:08-0400 Body weight 49.9 kg [facility] Phone: Encounters Encounter Date Encounter Type Care Provider Facility Start: 02-28-2022 End: 02-28-2022 ambulatory PHIL ROBLEDO Facility: Start: 10-02-2021 End: 10-02-2021 ambulatory Andrez María Facility:[facility] Start: 10-02-2021 End: 10-02-2021 Admission to same day surgery center DO Kimmy De La Cruz Work Phone: [facility] Start: 09-28-2021 End: 09-28-2021 ambulatory Kimmy De La Cruz Facility:[facility] Start: 09-28-2021 End: 09-28-2021 ambulatory DO Kimmy De La Cruz Work Phone: [facility] Work Phone: Start: 09-28-2021 End: 09-28-2021 Discharged Recurring DO Kimmy De La Cruz Work Phone: [facility] Start: 09-28-2021 Registered Recurring DO Ruben De La Cruz Work Phone: [facility] Start: 09-03-2021 ambulatory SUE [facility] Start: 01-14-2021 End: 01-14-2021 Patient encounter procedure [facility] Start: 01-08-2021 Non-patient / Non-visit [facility] [address] Start: 12-24-2020 End: 12-24-2020 Patient encounter procedure [facility] Start: 12-11-2020 Non-patient / Non-visit [facility] [address] Start: 12-10-2020 Patient encounter procedure [facility] Start: 08-17-2019 End: 08-20-2019 Patient encounter procedure [facility] Start: 08-17-2019 End: 08-19-2019 Subsequent hospital visit by physician Sanjana [facility] Comment on above: Acquired hypothyroid ism; Mixed hyperlipidemia Start: 08-06-2019 [facility] Procedures Date Procedure Procedure Detail Performing Clinician Start: 10-02-2021 Phacoemulsification of cataract with intraocular lens implantation DO Kimmy Philipyasmeen Work Phone: Start: 09-03-2021 Radex spine thoracic 3 views SANJANA DE AL CRUZ Start: 01-14-2021 Lumbar Medial Branch Block (Bilateral) Start: 12-24-2020 Local anesthetic block on spinal nerve root Start: 12-24-2020 Fluoroscopic guidance Start: 12-10-2020 MRI of lumbar spine without contrast Start: 08-17-2019 Assay of free thyroxine SANJANA DE LA CRUZ Start: 08-17-2019 Assay of thyroid stimulating hormone tsh SANJANA DE LA CRUZ Start: 08-17-2019 Blood count complete auto&auto difrntl wbc SANJANA DE LA CRUZ Start: 08-17-2019 Comprehensive metabolic [...] 01-14-2021 Fluoroscopic guidance [place] guided spin e [facility] Phone: Start: 12-24-2020 Fluoroscopic guidance [place] guided spin e [facility] Phone: Start: 08-16-2020 Lipid panel Lipid screen [place], [place] Start: 11-06-2019 Influenza vaccination Flu vacc ine (Season Ended) [place], [place] Start: 08-21-2019 End: 08-21-2019 Office Visit 08/21/2019 Office Visit Family Medicine Sanjana De La Cruz DO [address] [place] [address] [phone] [facility] Start: 12-10-2018 Screening for malign ant neoplasm of colon Colon Cancer Screen FIT/FOBT [place] Start: 08-25-2018 Annual Wellness Visi t (AWV) Annual Wellness Visit (AWV) [place] Start: 12-05-1998 Screening for osteoporosis DEXA (modify frequency per FRAX score) [place] Start: 12-05-1993 Shingles Vaccine (1 of 2) Baltazar gles Vaccine (1 of 2) [place] Start: 12-05-1962 DTaP/Tdap/Td vaccine (1 - Tdap) DTaP/Tdap/Td vaccine (1 - Tdap) [place] Patient Education [facility] Phone: Patient referral [facility] Phone: Immunizations Immunization Date Immunization Notes Care Provider Fa cility 12-01-2017 influenza, high dose seasonal, preservative-free [facility], [place] 06-02-2017 pneumococcal polysac charide vaccine, 23 valent [facility] 12-08-2016 Influenza Vaccine, unspecified formulation [facility] [place] 12-08-2016 influenza virus vacc ine, unspecified formulation [facility] [place] 12-09-2015 Influenza Vaccine, unspecified formulation [facility] [place] 12-09-2015 influenza virus vacc ine, unspecified formulation [facility] [place] 11-06-2014 Influenza Vaccine, unspecified formulation [facility] [place] 11-06-2014 influenza virus vacc ine, unspecified formulation [facility] [place] 11-19-2013 Influenza Vaccine, unspecified formulation [facility] [place] 11-19-2013 influenza virus vacc ine, unspecified formulation [place], [place] Payers Date Payer Category Payer Self-pay [id number] 2020 Medicaid [id number] 2017 Medicare [id number] 2017 Medicare BCBS MEDICARE AN THEM MEDIBLUE ESSENTIAL/PLUS xxxxxxxxxxxx 2017-Present [address] [address] [place] [address] xxxxxxxxxxxx [id number] 1959 Medicare [id number] 1945 Unknown [id number] 1945 Unknown [id number] 1943 Unknown [id number] 1943 Unknown [id number] 1943 Unknown [id number] 1943 Unknown [id number] Unknown [id number] Unknown [id number] Social History Date Type Detail Facility Start: 08-06-2019 [facility] [place] [place] History of tobacco use Cigarette Smoker M [place], [place] Start: 08-06-2019 Cigarettes smoked current (pack per day) - Reported [place] Start: 08-06-2019 Alcohol intake Current drinke r of alcohol (finding) [place] Start: 11-23-2018 History SDOH Alcohol Frequency 2 [place] Start: 11-23-2018 History SDOH Alcohol Std Drinks 1 [place] Sex Assigned At Not on file [place] Start: 12-24-2020 Former Smoker [facility] Phone: Start: 12-18-202012-24 [facility] Phone: Start: 12-18-202012-23 [facility] Phone: Start: 1945 Sex Assigned At Female T [facility] Phone: Start: 10-02-2021 Tobacco smoking stat us [facility]IS Ex-smoker (finding) [facility] Work Phone: Start: 10-02-2021 Yes [facility] Work Phone: Medical Equipment Procedure Code Equipment Code Equipment Original Text Equipment Identifier Dates Phacoemulsification of cataract with intraocular lens implant LENS [id number] FDA Start: 10-02-2021 Goals Date Patient Goal Desired Activity /State Functional Status Date Assessment Result Facility 10-02-2021 Functional status Ability to Fol low Directions Excellent [facility] Work Phone: 10-02-2021 Functional status Glasses [facility] Work Phone: 01-14-2021 Functional status Mobility - Ski n Risk Assessment Scale No Limitations [facility] Phone: 01-12-2021 Functional status Visual Assisti ve Devices Glasses [facility] Phone: 12-24-2020 Functional status Mobility - Ski n Risk Assessment Scale No Limitations [facility] Phone: 12-18-2020 Functional status Visual Assisti ve Devices Glasses [facility] Phone: Mental Status Date Assessment Result Facility 10-02-2021 Cognitive function Patient Behav ior Appropriate;Cooperative [facility] Work Phone: 10-02-2021 Cognitive function No [facility] Work Phone: 01-14-2021 Cognitive function Level Of Cons ciousness Awake;Alert;Appropriate;Follow s Commands [facility] Phone: 12-24-2020 Cognitive function Level Of Cons ciousness Awake;Alert;Appropriate;Follow s Commands [facility] Phone: Evaluation note Note Date & Type Note Facility Evaluation note No assessment information availa ble [facility] Phone: Hospital Discharge instructions Note Date & Type Note Facility Hospital Discharge instructions Additional Instructions NO LIFTING NO BENDING KEEP EYE SHIELD IN PLACE FOLLOW UP WITH DR HARTMAN TOMORROW AT 9:30AM TAKE ALL EYE DROPS TO OFFICE VISIT [facility] Work Phone: Summary Purpose Family History No Family History Records Found Relationship Condition Age at Onset Recorded Date/T victorino Not Specified Malignant neoplasm of prostate Unknown Relationship Condition Age at Onset Recorded Date/T victorino Unknown Family Anesthesia Reaction?No Unknown October 02, 2021 10:31am Advance Directives No Advanced Directives Records FoundDocuments on File Type Date Recorded Patient Utility Porter Expl anation Advance Directives and Living Will 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 Advance Directive Response Recorded Date/ Time Advance Directives No December 24, 2020 9:04am Advance Directive Response Recorded Date/ Time Advance Directives No January 9:07am Advance Directive Response Recorded Date/ Time Advance Directives No October 02 10:31am Organ Donor No January 24, 2 019 4:58pm 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 No October 02 10:31am Tissue Donor No January 24, 2 019 4:58pm Assessments Diagnosis Acquired hypothyroidism Unspecified hypothyroidism Mixed hyperlipidemia Chief Complaint and Reason for Visit Chief Complaint SPS.MRIRES Chief Complaint INJECTFU Chief Complaint M48.02,R29.898,R20.2 CAT WITH IOL LEFT EYE (GA 09/24 DD) Additional Source Comments INFORMATION SOURCE (unrecogn ized section and content) DATE CREATED AUTHOR 08/07/2019 [facility] DATE CREATED AUTHOR AUTHOR'S ORGANIZ ATION 08/19/2019 [facility] DATE CREATED AUTHOR AUTHOR'S ORGANIZ ATION 09/04/2021 [facility] DATE CREATED AUTHOR AUTHOR'S ORGANIZ ATION 09/04/2021 [facility] DATE CREATED AUTHOR AUTHOR'S ORGANIZ ATION 2021 [facility] ([place]) DATE CREATED AUTHOR AUTHOR'S ORGANIZ ATION 03/02/2022 [...] BE BASED ON THE PRIMARY CLINICAL RECORDS. [facility] [email or web address] [facility]. provides no warranty or guarantee of the accuracy or completeness of information in this document.
== END 2023-08-17 09:42 | disposition home or self-care (01) ==
LOC: MRI 09:41
PROVIDERS: PCP Family Medicine; Visit Provider Orthopaedic Surgery
DX: S93.402A Sprain of unspecified ligament of left ankle, initial encounter (principal); S90.02XA Contusion of left ankle, initial encounter; S86.312A Strain of muscle(s) and tendon(s) of peroneal muscle group at lower leg level, left leg, initial encounter
CPT/HCPCS: 73721

== ENCOUNTER 2023-09-05 11:38 | Outpatient (OUT) | payer MEDICARE, SELFPAY ==
--- NOTE | 2023-09-05 | XR_ITS ---
The [address] [address] Patient Name: CRISTINE AVELAR MRN: [id number] date: 1945 Sex: F Assigned Patient Location: Current Patient Location: Accession/Order Number: [id number] Exam Date: 09/05/2023 11:45 Report Date: 09/07/2023 06:13 At the request of: THERON LARA Procedure: XR elbow RT min 3V PROCEDURE: XR elbow RT min 3V HISTORY: RIGHT ELBOW PAIN COMPARISON: XR elbow right 08/08/2023 FINDINGS: BONES:Increasing band of sclerosis across the neck of radius consistent with ongoing bone healing of nondisplaced fracture. SOFT TISSUES:No visible soft tissue swelling. EFFUSION:Small joint effusion. OTHER: Negative. XR/XR elbow RT min 3V IMPRESSION: 1. Stable alignment and ongoing bone healing of nondisplaced radial neck fracture. 2. Minimal residual joint effusion. Electronically authenticated by: THERON MEHTA Date: 09/07/2023 06:13
--- OUTSIDE RECORDS SUMMARY | 2023-09-05 11:45 | XMS_ITS | CCD ---
Author Organization [facility] Care Team Providers Care Career Portals Teacher Name Role Phone SANJANA DE LA CRUZ [...] Provider Kimmy De La Cruz Attending Unavailable Bonettgianluca, Kimmy Primary Care Unavailable Andrez Hartman Attending Unavailable Bonettgianluca, Kimmy Primary Care Unavailable PHIL ROBLEDO Consulting Unavailable PHIL ROBLEDO Admitting Unavailable PHIL ROBLEDO Attending Unavailable WANDA HONG Consulting Unavailable TIMBO YOUNG Admitting Unavailable TIMBO YOUNG Attending Unavailable PRISCILLA MARHSALL Primary Care Unavailable Allergies Allergy Classification Reported Allergen(s) Allergy Type Date of Onset Reaction(s) Facility (1 source) cefdinir Drug Allergy 11-16-2018 [facility] [place] Medications Current Medications Medication Drug Class(es) Dates [...] UP RESPIRATORY INFECTION UNS] Onset: 03-02-2022 Episodic Retinal detachments; defects; vascular occlusion; and retinopathy (2 sources) Puckering of macula, left eye; Translations: [Puckering of macula, left eye] Onset: 08-25-2023 Chronic Thyroid disorders (1 source) Acquired hypothyroidism; Translations: [...] Interpretation Reference Range Facil ity Covid-19 PCR (CVDTB)on 02-05 SARS-CoV-2 (COVID-19) RNA TREVOR+probe Ql (Unsp spec) Not detected Normal NOT DETECTED [facility] Comment on above: Result Comment: This test is not yet approved or cleared by the [place] FDA. When there are no FDA-approved or cleared tests available, and other criteria are met, FDA can make tests available under an emergency access mechanism called an Emergency Use Authorization (EUA). The EUA for this test is supported by the [place] of Health and Human Service's (HHS's) declaration [...] consistent with SARS-CoV-2. Performed By: #### C VDTB #### [facility] [address] [place] [address] Dr. Fabrice Garza INFLUENZA A AND B AGon 02-28 [facility] SEE BELOW Normal [facility] Comment on above: Result Comment: Nega tive for Flu A protein angiten. Infection due to Flu A cannot be ruled out. Flu A angiten in the sample may be below the detection limit of the test. Performed By: #### I NFLUAB #### [facility] [address] [place] [address] Dr. [facility] BEL[facility] Normal [facility] Comment on above: Result Comment: Nega tive for Flu B protein antigen. Infection due to Flu B cannot be ruled out. Flu B antigen in the sample may be below the detection limit of the test. Performed By: #### I NFLUAB #### [facility] [address] [place] [address] Dr. Fabrice Garza INFLUENZA A AG Negative Normal NEGATIVE SEE COMMENT [facility] Comment on above: Performed By: #### I NFLUAB #### [facility] [address] [place] [address] Dr. Fabrice Garza INFLUENZA B AG Negative Normal NEGATIVE SEE COMMENT [facility] Comment on above: Performed By: #### I NFLUAB #### [facility] [address] [place] [address] Dr. Fabrice Garza INTERNAL CONTROLS Within Normal Limits Normal Wi thin Normal Limits [facility] Comment on above: Performed By: #### I NFLUAB #### [facility] [address] [place] [address] Dr. Fabrice Garza XR CHEST 1 Von [...] WANDA HONG Date: 2022-02-28 16:37 Normal [facility] XR CERVICAL SPINE (2-3 VIEWS )on 09-04-2021 [...] Kranthi Ribeiro MD 09/04/21 Final result Normal [facility] CBC With Platelet and Differ entialon 09-03-2021 Abs Imm Granulocytes 0.01 E9/L Normal [facility] Absolute Basophils 0.04 E9/L Normal 0.00-0.20 [facility] Absolute Eosinophils 0.12 E9/L Normal 0.05-0.50 [facility] Absolute Lymphocytes 0.90 E9/L Low 1.50-4.00 [facility] Absolute Monocytes 0.37 E9/L Normal 0.10-0.95 [facility] Absolute Neutrophils 2.34 E9/L Normal 1.80-7.30 [facility] Basophils/100 WBC (Bld) 1.1 % Normal 0.0-2.0 [facility] Eosinophils/100 WBC (Bld) 3.2 % Normal 0.0-6.0 [facility] Hematocrit (Bld) [Volume fraction] 41.7 % Normal 34.0-48.0 [facility] Hemoglobin (Bld) [Mass/Vol] 12.8 g/dL Normal 11.5-15.5 [facility] Imm Granulocytes 0.3 % Normal 0.0-5.0 [facility] Lymphocytes/100 WBC (Bld) 23.8 % Normal 20.0-42.0 [facility] MCH (RBC) [Entitic mass] 30.5 pg Normal 26.0-35.0 [facility] MCHC 30.7 % Low 32.0-34.5 [facility] MCV (RBC) [Entitic vol] 99.5 fL Normal 80.0-99.9 [facility] Monocytes/100 WBC (Bld) 9.8 % Normal 2.0-12.0 [facility] Neutrophils/100 WBC (Bld) 61.8 % Normal 43.0-80.0 [facility] Platelet Count 232 E9/L Normal 130-450 [facility] Platelet mean volume (Bld) [Entitic vol] 12.3 fL High 7.0-12.0 [facility] RBC 4.19 E12/L Normal 3.50-5.50 [facility] RDW 12.6 fL Normal 11.5-15.0 [facility] WBC 3.8 E9/L Low 4.5-11.5 [facility] Comprehensive Metabolic Pane rosie 09-03-2021 Albumin [Mass/Vol] 4.8 g/dL Normal 3.5-5.2 [facility] ALP [Catalytic activity/Vol] 66 U/L Normal 35-104 [facility] ALT [Catalytic activity/Vol] 11 U/L Normal 0-32 [facility] Anion gap [Moles/Vol] 15 mmol/L Normal 7-16 [facility] AST [Catalytic activity/Vol] 23 U/L Normal 0-31 [facility] Bilirubin [Mass/Vol] 0.3 mg/dL Normal 0.0-1.2 [facility] Calcium [Mass/Vol] 9.8 mg/dL Normal 8.6-10.2 [facility] Chloride [Moles/Vol] 102 mmol/L Normal 98-107 [facility] CO2 [Moles/Vol] 25 mmol/L Normal 22-29 [facility] Creatinine [Mass/Vol] 0.8 mg/dL Normal 0.5-1.0 [facility] GFR Calculated >60 Normal >=60 [facility] Comment on above: Result Comment: Assistant Manager vika Kidney Disease: less than 60 ml/min/1.73 sq.m. Kidney Failure: less than 15 ml/min/1.73 sq.m. Results valid for patients 18 years and older. GFR/1.73 sq M.predicted among blacks MDRD (S/P/Bld) [Vol rate/Area] mL/min/{1.73_m2} Normal [facility] Glucose [Mass/Vol] 88 mg/dL Normal 74-99 [facility] Potassium [Moles/Vol] 4.3 mmol/L Normal 3.5-5.0 [facility] Protein [Mass/Vol] 7.2 g/dL Normal 6.4-8.3 [facility] Sodium [Moles/Vol] 142 mmol/L Normal 132-146 [facility] Urea nitrogen [Mass/Vol] 12 mg/dL Normal 6-23 [facility] Lipid Panelon 09-03-2021 Cholesterol [Mass/Vol] 210 mg/dL High 0-199 [facility] Cholesterol in HDL [Mass/Vol] 95 mg/dL Normal >40 [facility] Cholesterol in LDL [Mass/Vol] 98 mg/dL Normal 0-99 [facility] Triglyceride [Mass/Vol] 86 mg/dL Normal 0-149 [facility] VLDL Cholesterol (Calculated) 17 mg/dL Normal [facility] TSH w/out Reflexon TSH w/out Reflex 0.618 uIU/mL Normal 0.270-4.200 [facility] Thyroxine Freeon 09-03-2021 Thyroxine Free 2.12 ng/dL High 0.93-1.70 [facility] UR Microalbumin Randomon UR Microalbumin Random <12.0 Normal Not Established [facility] XR THORACIC SPINE (3 VIEWS)o n [...] Wanda Akers MD 09/03/21 Final result Normal [facility] Thyroxine Freeon 08-18-2019 Thyroxine Free 1.85 ng/dL High 0.93-1.70 [facility] CBC Auto Differentialon 08-05 Basophils (Bld) [#/Vol] 0.04 10*3/uL [place] Basophils/100 WBC (Bld) 1.0 % 0 - 2 % [place] Eosinophils (Bld) [#/Vol] 0.16 10*3/uL [place] Eosinophils/100 WBC (Bld) 4.1 % 0 - 6 % [place] Erythrocyte distribution width (RBC) [Ratio] 12.3 fL 11.5 - 15 fL [place] Hematocrit (Bld) [Volume fraction] 44.4 % 34 - 48 % [place] Hemoglobin (Bld) [Mass/Vol] 14.2 g/dL 11.5 - 15.5 g/dL [place] Immature granulocytes (Bld) [#/Vol] 0.01 10*3/uL E9/L [place] Immature granulocytes/100 WBC (Bld) 0.3 % 0 - 5 % [place] Interpretation and review of laboratory results Abnormal [place] Lymphocytes (Bld) [#/Vol] 1.04 10*3/uL [place] Lymphocytes/100 WBC (Bld) 26.5 % 20 - 42 % [place] MCH (RBC) [Entitic mass] 31.8 pg 26 - 35 pg [place] MCHC (RBC) [Mass/Vol] 32.0 % 32 - 34.5 % [place] MCV (RBC) [Entitic vol] 99.3 fL 80 - 99.9 fL [place] Monocytes (Bld) [#/Vol] 0.35 10*3/uL [place] Monocytes/100 WBC (Bld) 8.9 % 2 - 12 % [place] Neutrophils Absolute 2.32 [place] Neutrophils/100 WBC (Bld) 59.2 % 43 - 80 % [place] Platelet mean volume (Bld) [Entitic vol] 12.5 fL High 7 - 12 fL [place], [place] Platelets (Bld) [#/Vol] 166 10*3/uL [place] RBC (Bld) [#/Vol] 4.47 10*6/uL [place] WBC (Bld) [#/Vol] 3.9 10*3/uL [place] CBC With Platelet and Differ entialon 08-17-2019 Abs Imm Granulocytes 0.01 E9/L Normal [facility] Basophils (Bld) [#/Vol] 0.04 E9/L Normal 0.00-0.20 [facility] Basophils/100 WBC (Bld) 1.0 % Normal 0.0-2.0 [facility] Eosinophils (Bld) [#/Vol] 0.16 E9/L Normal 0.05-0.50 [facility] Eosinophils/100 WBC (Bld) 4.1 % Normal 0.0-6.0 [facility] Erythrocyte distribution width (RBC) [Ratio] 12.3 fL Normal 11.5-15.0 [facility] Hematocrit (Bld) [Volume fraction] 44.4 % Normal 34.0-48.0 [facility] Hemoglobin (Bld) [Mass/Vol] 14.2 g/dL Normal 11.5-15.5 [facility] Imm Granulocytes 0.3 % Normal 0.0-5.0 [facility] Lymphocytes (Bld) [#/Vol] 1.04 E9/L Low 1.50-4.00 [facility] Lymphocytes/100 WBC (Bld) 26.5 % Normal 20.0-42.0 [facility] MCH (RBC) [Entitic mass] 31.8 pg Normal 26.0-35.0 [facility] MCHC (RBC) [Mass/Vol] 32.0 % Normal 32.0-34.5 [facility] MCV (RBC) [Entitic vol] 99.3 fL Normal 80.0-99.9 [facility] Monocytes (Bld) [#/Vol] 0.35 E9/L Normal 0.10-0.95 [facility] Monocytes/100 WBC (Bld) 8.9 % Normal 2.0-12.0 [facility] Neutrophils (Bld) [#/Vol] 2.32 E9/L Normal 1.80-7.30 [facility] Neutrophils/100 WBC (Bld) 59.2 % Normal 43.0-80.0 [facility] Platelet mean volume (Bld) [Entitic vol] 12.5 fL High 7.0-12.0 [facility] Platelets (Bld) [#/Vol] 166 E9/L Normal 130-450 [facility] RBC (Bld) [#/Vol] 4.47 E12/L Normal 3.50-5.50 [facility] WBC (Bld) [#/Vol] 3.9 E9/L Low 4.5-11.5 [facility] Comprehensive Metabolic Pane rosie 08-17-2019 Albumin [Mass/Vol] 4.4 g/dL Normal 3.5-5.2 [facility] ALP [Catalytic activity/Vol] 69 U/L Normal 35-104 [facility] ALT [Catalytic activity/Vol] 9 U/L Normal 0-32 [facility] Anion gap [Moles/Vol] 12 mmol/L Normal 7-16 [facility] AST [Catalytic activity/Vol] 20 U/L Normal 0-31 [facility] Bilirubin [Mass/Vol] 0.6 mg/dL Normal 0.0-1.2 [facility] Calcium [Mass/Vol] 10.2 mg/dL Normal 8.6-10.2 [facility] Chloride [Moles/Vol] 100 mmol/L Normal 98-107 [facility] CO2 [Moles/Vol] 29 mmol/L Normal 22-29 [facility] Creatinine [Mass/Vol] 0.8 mg/dL Normal 0.5-1.0 [facility] GFR/1.73 sq M predicted among blacks MDRD (S/P/Bld) [Vol rate/Area] mL/min/{1.73_m2} Normal [facility] GFR/1.73 sq M predicted among non-blacks MDRD (S/P/Bld) [Vol rate/Area] mL/min/{1.73_m2} Normal >=60 [facility] Comment on above: Result Comment: Assistant Manager vika Kidney Disease: less than 60 ml/min/1.73 sq.m. Kidney Failure: less than 15 ml/min/1.73 sq.m. Results valid for patients 18 years and older. Glucose [Mass/Vol] 92 mg/dL Normal 74-99 [facility] Potassium [Moles/Vol] 5.1 mmol/L High 3.5-5.0 [facility] Protein [Mass/Vol] 7.1 g/dL Normal 6.4-8.3 [facility] Sodium [Moles/Vol] 141 mmol/L Normal 132-146 [facility] Urea nitrogen [Mass/Vol] 11 mg/dL Normal 8-23 [facility] Albumin [Mass/Vol] 4.4 g/dL 3.5 - 5.2 g/dL [place] ALP [Catalytic activity/Vol] 69 U/L 35 - 104 U/L [place] ALT [Catalytic activity/Vol] 9 U/L 0 - 32 U/L [place] Anion gap [Moles/Vol] 12 mmol/L 7 - 16 mmol/L [place] AST [Catalytic activity/Vol] 20 U/L 0 - 31 U/L [place] Bilirubin Ql (U) 0.6 mg/dL 0 - 1.2 mg/dL [place] Calcium [Mass/Vol] 10.2 mg/dL 8.6 - 10.2 mg/dL [place] Chloride [Moles/Vol] 100 mmol/L 98 - 107 mmol/L [place] CO2 [Moles/Vol] 29 mmol/L 22 - 29 mmol/L [place] Creatinine [Mass/Vol] 0.8 mg/dL 0.5 - 1 mg/dL [place] GFR >60 [place] GFR Non- >60 >=60 mL/min/1.73 [place] Comment on above: Chronic Kidney Disea se: less than 60 ml/min/1.73 sq.m. Kidney Failure: less than 15 ml/min/1.73 sq.m. Results valid for patients 18 years and older. Glucose [Mass/Vol] 92 mg/dL 74 - 99 mg/dL [place] Interpretation and review of laboratory results Abnormal [place] Potassium [Moles/Vol] 5.1 mmol/L High 3.5 - 5 mmol/L [place] Protein [Mass/Vol] 7.1 g/dL 6.4 - 8.3 g/dL [place] Sodium [Moles/Vol] 141 mmol/L 132 - 146 mmol/L [place] Urea nitrogen [Mass/Vol] 11 mg/dL 8 - 23 mg/dL [place] Lipid Panelon 08-17-2019 Cholesterol [Mass/Vol] 192 mg/dL Normal 0-199 [facility] Cholesterol in HDL [Mass/Vol] 84 mg/dL Normal >40 [facility] Cholesterol in LDL [Mass/Vol] 93 mg/dL Normal 0-99 [facility] Triglyceride [Mass/Vol] 73 mg/dL Normal 0-149 [facility] VLDL Cholesterol (Calculated) 15 mg/dL Normal [facility] Cholesterol [Mass/Vol] 192 mg/dL 0 - 199 mg/dL [place] Cholesterol in HDL [Mass/Vol] 84 mg/dL >40 [place] Cholesterol in LDL [Mass/Vol] 93 mg/dL 0 - 99 mg/dL [place] Triglyceride [Mass/Vol] 73 mg/dL 0 - 149 mg/dL [place] VLDL Cholesterol Calculated 15 mg/dL [place] T4, Freeon 08-17-2019 Free T4 [Mass/Vol] 1.85 ng/dL High 0.93 - 1.7 ng/dL [place] Interpretation and review of laboratory results Abnormal [place] TSH w/out Reflexon 0 TSH Qn 2.150 uIU/mL Normal 0.270-4.200 [facility] TSH without Reflexon 020 TSH Qn 2.150 m[IU]/L [place] XR KNEE RIGHT (3 VIEWS)on XR KNEE RIGHT (3 VIEWS) EXAMINATION: THREE XRAY VIEWS OF THE RIGHT KNEE 08/06/2019 4:58 pm COMPARISON: None. HISTORY: ORDERING SYSTEM PROVIDED HISTORY: Right hip pain Pain FINDINGS: There is mild infrapatellar soft tissue swelling. [id number] patellofemoral joint space narrowing. There is a [...] Maury Ojeda MD 08/07/19 Final result Normal [facility] XR HIP RIGHT (2-3 VIEWS)on 0 08-06-2019 XR HIP RIGHT (2-3 VIEWS) EXAMINATION: [...] Alex Frias MD 08/06/19 Final result Normal [facility] XR HIP 2-3 VW W PELVIS [...] IMPRESSION: No significant abnormalities. Interpreted by: Kranthi Solsi DO Signed by: Kranthi Solis DO 01/25/19 Final result Normal [facility] XR LUMBAR SPINE (2-3 VIEWS)o n [...] Kranthi Solis DO 01/25/19 Final result Normal [facility] Vital Signs Date Time Vital Sign Value Performing Clinician Faci lity 10-02-2021 13:15-0400 Diastolic blood pressure 74 mm[Hg] DO Kimmy Bonetti Work Phone: [facility] Work Phone: 10-02-2021 13:15-0400 Heart rate 76 /min DO Kimmy Bonetti Work Phone: [facility] Work Phone: 10-02-2021 13:15-0400 Respiratory rate 18 /min DO Kimmy Bonetti Work Phone: [facility] Work Phone: 10-02-2021 13:15-0400 SaO2% (BldA) [Mass fraction] 97 % DO Kimmy Bonetti Work Phone: [facility] Work Phone: 10-02-2021 13:15-0400 Systolic blood pressure 133 mm[Hg] DO Kimmy Bonetti Work Phone: [facility] Work Phone: 10-02-2021 12:53-0400 Body temperature 97.3 [degF] DO Kimmy De La Cruz Work Phone: [facility] Work Phone: 10-02-2021 10:18-0400 Body height 160.02 cm DO Kimmy De La Cruz Work Phone: [facility] Work Phone: 10-02-2021 10:18-0400 Body mass index (BMI) [Ratio] 19.1 kg/m2 DO Kimmy De La Cruz Work Phone: [facility] Work Phone: 10-02-2021 10:18-0400 Body weight 48.99 kg DO Kimmy De La Cruz Work Phone: [facility] Work Phone: 01-14-2021 09:45-0500 Body temperature 97.8 [degF] [facility] Phone: 01-14-2021 09:45-0500 Diastolic blood pressure 74 mm[Hg] [facility] Phone: 01-14-2021 09:45-0500 Heart rate 60 /min [facility] Phone: 01-14-2021 09:45-0500 Respiratory rate 16 /min [facility] Phone: 01-14-2021 09:45-0500 SaO2% (BldA) [Mass fraction] 99 % [facility] Phone: 01-14-2021 09:45-0500 Systolic blood pressure 160 mm[Hg] [facility] Phone: 01-12-2021 17:29-0500 Body height 160.02 cm [facility] Phone: 01-12-2021 17:29-0500 Body mass index (BMI) [Ratio] 19.5 kg/m2 [facility] Phone: 01-12-2021 17:29-0500 Body weight 49.9 kg [facility] Phone: 12-24-2020 10:00-0400 Body temperature 97 [degF] [facility] Phone: 12-24-2020 10:00-0400 Diastolic blood pressure 66 mm[Hg] [facility] Phone: 12-24-2020 10:00-0400 Heart rate 71 /min [facility] Phone: 12-24-2020 10:00-0400 Respiratory rate 16 /min [facility] Phone: 12-24-2020 10:00-0400 SaO2% (BldA) [Mass fraction] 97 % [facility] Phone: 12-24-2020 10:00-0400 Systolic blood pressure 158 mm[Hg] [facility] Phone: 12-18-2020 12:08-0400 Body height 160.02 cm [facility] Phone: 12-18-2020 12:08-0400 Body mass index (BMI) [Ratio] 19.5 kg/m2 [facility] Phone: 12-18-2020 12:08-0400 Body weight 49.9 kg [facility] Phone: Encounters Encounter Date Encounter Type Care Provider Facility Start: 08-25-2023 End: 08-25-2023 ambulatory TIMBO YOUNG [facility] Start: 02-28-2022 End: 02-28-2022 ambulatory PHIL ROBLEDO Facility: Start: 10-02-2021 End: 10-02-2021 ambulatory Andrez María Facility:[facility] Start: 10-02-2021 End: 10-02-2021 Admission to same day surgery center DO Kimmy De La Cruz Work Phone: [facility] Start: 09-28-2021 End: 09-28-2021 ambulatory Kimmy De La Cruz Facility:[facility] Start: 09-28-2021 End: 09-28-2021 ambulatory DO Kimmy De La Cruz Work Phone: [facility] Work Phone: Start: 09-28-2021 End: 09-28-2021 Discharged Recurring DO Kimmy De La Cruz Work Phone: [facility]Physical Therapy Start: 09-28-2021 Registered Recurring DO Ruben Christiei Work Phone: [facility] Start: 09-03-2021 ambulatory [facility] Start: 01-14-2021 End: 01-14-2021 Patient encounter procedure [facility] Start: 01-08-2021 Non-patient / Non-visit [facility] [address] Start: 12-24-2020 End: 12-24-2020 Patient encounter procedure [facility] Start: 12-11-2020 Non-patient / Non-visit [facility] [address] Start: 12-10-2020 Patient encounter procedure [facility] Start: 08-17-2019 End: 08-20-2019 Patient encounter procedure [facility] Start: 08-17-2019 End: 08-19-2019 Subsequent hospital visit by physician Sanjana TABAR[facility] Comment on above: Acquired hypothyroid ism; Mixed hyperlipidemia Start: 08-06-2019 [facility] Start: [facility]-25[facility] Procedures Date Procedure Procedure Detail Performing Clinician Start: 10-02-2021 Phacoemulsification of cataract with intraocular lens implantation DO Kimmy De La Cruz Work Phone: Start: 09-03-2021 Radex spine thoracic 3 views SANJANA BONETTI Start: 01-14-2021 Lumbar Medial Branch Block (Bilateral) Start: 12-24-2020 Local anesthetic block on spinal nerve root Start: 12-24-2020 Fluoroscopic guidance Start: 12-10-2020 MRI of lumbar spine without contrast Start: 08-17-2019 Assay of free thyroxine SANJANA BONETTI Start: 08-17-2019 Assay of thyroid stimulating hormone tsh SANJANA BONETTI Start: 08-17-2019 Blood count complete auto&auto difrntl wbc SANJANA BONETTI Start: 08-17-2019 Comprehensive metabolic panel SANJANA BONETT I Start: 08-17-2019 Lipid panel SANJANA BONETTI Start: 08-17-2019 Assay of free thyroxine Sanjana Christie i Work Phone: Start: 08-17-2019 Assay of thyroid stimulating hormone tsh Sue Jono Work Phone: Start: 08-17-2019 Blood count complete auto&auto difrntl wbc SuePolly Palaciosyasmeen Work Phone: Start: 08-17-2019 Comprehensive metabolic panel SuePolly Palaciosyasmeen Work Phone: Start: 08-17-2019 Lipid panel Sue Jono Work Phone: Start: 08-06-2019 Radex hip unilateral with pelvis 2-3 views SANJANA BONETTI Start: 01-25-2019 Radex hip unilateral with pelvis 2-3 views SANJANA BONETTI Start: 01-25-2019 Radex spine lumbosacral 2/3 views SANJANA DE LA CRUZ Plan of Treatment Date Care Activity Detail Author Start: 01-14-2021 Fluoroscopic guidance [place] guided spin e [facility] Work Phone: Start: 12-24-2020 Fluoroscopic guidance [place] guided spin e [facility] Work Phone: Start: 08-16-2020 Lipid panel Lipid screen [place], [place] Start: 11-06-2019 Influenza vaccination Flu vacc ine (Season Ended) [place] Start: 08-21-2019 End: 08-21-2019 Office Visit 08/21/2019 Office Visit Family Medicine Sanjana De La Cruz, DO [address] [facility] [place] [address] [place] [address] [phone] [facility] Start: 12-10-2018 Screening for malign ant neoplasm of colon Colon Cancer Screen FIT/FOBT [place] Start: 08-25-2018 Annual Wellness Visi t (AWV) Annual Wellness Visit (AWV) [place] Start: 12-05-1998 Screening for osteoporosis DEXA (modify frequency per FRAX score) [place] Start: 12-05-1993 Shingles Vaccine (1 of 2) Baltazar gles Vaccine (1 of 2) [place] Start: 12-05-1962 DTaP/Tdap/Td vaccine (1 - Tdap) DTaP/Tdap/Td vaccine (1 - Tdap) [place] Patient Education [facility] Phone: Patient referral [facility] Phone: Immunizations Immunization Date Immunization Notes Care Provider Fa cility 12-01-2017 influenza, high dose seasonal, preservative-free [facility], [place] 06-02-2017 pneumococcal polysac charide vaccine, 23 valent [facility], [place] 12-08-2016 Influenza Vaccine, unspecified formulation [facility] , [place] 12-08-2016 influenza virus vacc ine, unspecified formulation [facility] , [place] 12-09-2015 Influenza Vaccine, unspecified formulation [facility] [place] 12-09-2015 influenza virus vacc ine, unspecified formulation [facility] [facility] [place] 11-06-2014 Influenza Vaccine, unspecified formulation [facility] , [place] 11-06-2014 influenza virus vacc ine, unspecified formulation [facility] , [place] 11-19-2013 Influenza Vaccine, unspecified formulation [facility] , [place] 11-19-2013 influenza virus vacc ine, unspecified formulation [facility] [place], [place] Payers Date Payer Category Payer Self-pay [id number] 2020 Medicaid [id number] 2017 Medicare [id number] 2017 Medicare [facility] MEDICARE AN THEM MEDIBLUE ESSENTIAL/PLUS xxxxxxxxxxxx 2017-Present [address] [address] [place] [address] xxxxxxxxxxxx [id number] 1959 Medicare [id number] 1945 Unknown [id number] 1945 Unknown [id number] 1943 Unknown [id number] 1943 Unknown [id number] 1943 Unknown [id number] 1943 Unknown [id number] 1945 Unknown [id number] Unknown [id number] Unknown [id number] Social History Date Type Detail Facility Start: 08-06-2019 [facility] Current every day smoker [place], [place] History of tobacco use Cigarette Smoker [facility] Start: 08-06-2019 Cigarettes smoked current (pack per day) - Reported [place], [place] Start: 08-06-2019 Alcohol intake Current drinke r of alcohol (finding) [facility] Start: 11-23-2018 History SDOH Alcohol Frequency 2 [facility] Start: 11-23-2018 History SDOH Alcohol Std Drinks 1 [facility] Sex Assigned At Not on file [place], [place] Start: 12-24-2020 Former Smoker [facility] Phone: Start: 12-18-202012-24 [facility] Phone: Start: 12-18-202012-23 [facility] Phone: Start: 1945 Sex Assigned At Female T he [facility] Phone: Start: 10-02-2021 Tobacco smoking stat us [facility] Ex-smoker (finding) [facility] Work Phone: Start: 10-02-2021 Yes [facility] Work Phone: Medical Equipment Procedure Code Equipment Code Equipment Original Text Equipment Identifier Dates Phacoemulsification of cataract with intraocular lens implant LENS [id number] FDA Start: 10-02-2021 Goals Date Patient Goal Desired Activity /State Functional Status Date Assessment Result Facility 10-02-2021 Functional status Ability to Fol low Directions Excellent [facility] Work Phone: 10-02-2021 Functional status Glasses [facility] Work Phone: 01-14-2021 Functional status Mobility - Ski n Risk Assessment Scale No Limitations [facility] Phone: 01-12-2021 Functional status Visual Assisti ve Devices Glasses [facility] Phone: 12-24-2020 Functional status Mobility - Ski n Risk Assessment Scale No Limitations [facility] Phone: 12-18-2020 Functional status Visual Assisti ve Devices Glasses [facility] Phone: Mental Status Date Assessment Result Facility 10-02-2021 Cognitive function Patient Behav ior Appropriate;Cooperative [facility] Work Phone: 10-02-2021 Cognitive function [facility] Work Phone: 01-14-2021 Cognitive function Level Of Cons ciousness Awake;Alert;Appropriate;Follow s Commands [facility] Phone: 12-24-2020 Cognitive function Level Of Cons ciousness Awake;Alert;Appropriate;Follow s Commands [facility] Phone: Evaluation note Note Date & Type Note Facility Evaluation note No assessment information availa ble [facility] Phone: Hospital Discharge instructions Note Date & Type Note Facility Hospital Discharge instructions Additional Instructions NO LIFTING NO BENDING KEEP EYE SHIELD IN PLACE FOLLOW UP WITH DR HARTMAN TOMORROW AT 9:30AM TAKE ALL EYE DROPS TO OFFICE VISIT [facility] Work Phone: Summary Purpose Family History No Family History Records Found Relationship Condition Age at Onset Recorded Date/T victorino Not Specified Malignant neoplasm of prostate Unknown Relationship Condition Age at Onset Recorded Date/T victorino Unknown Family Anesthesia Reaction?No Unknown October 02, 2021 10:31am Advance Directives No Advanced Directives Records FoundDocuments on File Type Date Recorded 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 Advance Directives and Living Will Power of Kitchen Lead Advance Directive Response Recorded Date/ Time Advance Directives No December 24, 2020 9:04am Advance Directive Response Recorded Date/ Time Advance Directives No January 9:07am Advance Directive Response Recorded Date/ Time Advance Directives No October 02 10:31am Organ Donor No January 24 4:58pm Power of Kitchen Lead No October 02 10:31am Tissue Donor No January 24 019 4:58pm Assessments Diagnosis Acquired hypothyroidism Unspecified hypothyroidism Mixed hyperlipidemia Chief Complaint and Reason for Visit Chief Complaint SPS.MRIRES Chief Complaint INJECTFU Chief Complaint M48.02,R29.898,R20.2 CAT WITH IOL LEFT EYE ([place] 09/24 DD) Additional Source Comments INFORMATION SOURCE (unrecogn ized section and content) DATE CREATED AUTHOR 08/07/2019 [facility] DATE CREATED AUTHOR AUTHOR'S ORGANIZ ATION 08/19/2019 [facility] DATE CREATED AUTHOR AUTHOR'S ORGANIZ ATION 09/04/2021 [facility] DATE CREATED AUTHOR AUTHOR'S ORGANIZ ATION 09/04/2021 [facility] DATE CREATED AUTHOR AUTHOR'S ORGANIZ ATION 2021 [facility] DATE CREATED AUTHOR AUTHOR'S ORGANIZ ATION 03/02/2022 [facility] DATE CREATED AUTHOR AUTHOR'S ORGANIZ ATION 08/26/2023 [facility] Goals (unrecognized section and content) Goals may [...] BE BASED ON THE PRIMARY CLINICAL RECORDS. [employer] provides no warranty or guarantee of the accuracy or completeness of information in this document.
== END 2023-09-05 11:39 | disposition home or self-care (01) ==
LOC: EC 11:40
PROVIDERS: PCP Family Medicine; Visit Provider Orthopaedic Surgery
DX: S52.124D Nondisplaced fracture of head of right radius, subsequent encounter for closed fracture with routine healing (principal)
CPT/HCPCS: 73080

== ENCOUNTER 2023-09-19 13:47 | Outpatient (OUT) | payer MEDICARE, SELFPAY ==
--- NOTE | 2023-09-19 13:52 | VEIN_ITS ---
The [address] [address] Patient Name: CRISTINE AVELAR MRN: [id number] date: 1945 Sex: F Assigned Patient Location: Current Patient Location: Accession/Order Number: [id number] Exam Date: 09/19/2023 13:52 Report Date: 09/19/2023 15:47 At the request of: PRISCILLA MARSHALL Procedure: VC SEGMENTAL PRESSURES EXAM: VC SEGMENTAL PRESSURES HISTORY: I73.9 COMPARISON: None. FINDINGS: Segmental pressures presented as follows (right, left) in mmHg. Brachial: 139, 137 Upper thigh: 189, 167 Lower thigh: 168, 167 Calf: 160, 144 DPA: 154, 142 LINE FIXER: 140, 139 1st Toe: 92, 90 KELLEY: 1.11, 1.02 TBI: 0.66, 0.65 The ABIs are Normal The TBI's are slightly low suggesting mild ischemia PVR waveforms: Right leg: Thigh: Normal Above knee: Normal Below knee: Normal Right ankle: Normal First metatarsal: Mild ischemic waveform Left leg: Thigh: Normal Above knee: Normal Below knee: Normal Right ankle: Normal First metatarsal: Normal VEIN/VC SEGMENTAL PRESSURES IMPRESSION: Slightly low bilateral tibiae suggests mild ischemia Mild ischemic waveform first right metatarsal Electronically authenticated by: WANDA DEVLIN Date: 09/19/2023 15:47
--- OUTSIDE RECORDS SUMMARY | 2023-09-19 14:03 | XMS_ITS ---
Patient Summarization (C-CDA 2.1 CCD) Created on: September 19, 2023 AVELARCRISTINE : 1945 Sex: Female Author Organization Sample organization Care Team Providers Care Test Rider Name Role Phone JONO, RAYNE Primary Care Unavailable BONETTI, RAYNE Primary Care Unavailable BONETTI, RAYNE Primary Care Unavailable BONETTI, RAYNE Referring Unavailable BONETTI, RAYNE Primary Care Unavailable Bonetti, Sanjana Matias Primary Care Provider [phone] JONO, RAYNE Primary Care Unavailable Bonetti, DO Kimmy Primary Care Provider DO Kimmy De La Cruz Attending Provider MD Andrez Hartman Attending Provider [phone] Kimmy De La Cruz Attending Unavailable Boneyasmeen, Kimmy Primary Care Unavailable Andrez Hartman Attending Unavailable Jono, Kimmy Primary Care Unavailable PHIL ROBLEDO Consulting Unavailable PHIL ROBLEDO Admitting Unavailable PHIL ROBLEDO Attending Unavailable WANDA HONG Consulting Unavailable TIMBO YOUNG Admitting Unavailable TIMBO YOUNG Attending Unavailable PRISCILLA MARSHALL Primary Care Unavailable Allergies Allergy Classification Reported Allergen(s) Allergy Type Date of Onset Reaction(s) Facility (1 source) cefdinir Drug Allergy 11-16-2018 [place], [place] Encounters Encounter Date Encounter Type Care Provider Facility Start: 08-25-2023 End: 08-25-2023 ambulatory TIMBO YOUNG [facility] Start: 02-28-2022 End: 02-28-2022 ambulatory PHIL ROBLEDO Facility: Start: 10-02-2021 End: 10-02-2021 ambulatory Andrez Hartman Facility:[facility] Start: 10-02-2021 End: 10-02-2021 Admission to same day surgery center DO Kimmy De La Cruz Work Phone: [facility] Start: 09-28-2021 End: 09-28-2021 ambulatory Kimmy De La Cruz Facility:[facility] Start: 09-28-2021 End: 09-28-2021 ambulatory DO Kimmy De La Cruz Work Phone: [facility] Work Phone: Start: 09-28-2021 End: 09-28-2021 Discharged Recurring DO Kimmy De La Cruz Work Phone: [facility] Start: 09-28-2021 Registered Recurring DO Ruben De La Cruz Work Phone: [facility] Start: 09-03-2021 ambulatory [facility] Start: 01-14-2021 End: 01-14-2021 Patient encounter procedure [facility] Start: 01-08-2021 Non-patient / Non-visit [facility] [address] Start: 12-24-2020 End: 12-24-2020 Patient encounter procedure [facility] Start: 12-11-2020 Non-patient / Non-visit [facility] [address] Start: 12-10-2020 Patient encounter procedure [facility] Start: 08-17-2019 End: 08-20-2019 Patient encounter procedure [facility] Start: 08-17-2019 End: 08-19-2019 Subsequent hospital visit by physician Sanjana TABAR[facility] Comment on above: Acquired hypothyroid ism; Mixed hyperlipidemia Start: 08-06-2019 Patient encounter procedure [facility] Start: 01-25-2019 Patient encounter procedure [facility] Medical Equipment Procedure Code Equipment Code Equipment Original Text Equipment Identifier Dates Phacoemulsification of cataract with intraocular lens implant LENS [id number] FDA Start: 10-02-2021 Goals Date Patient Goal Desired Activity /State Immunizations Immunization Date Immunization Notes Care Provider Carley marcano 12-01-2017 influenza, high dose seasonal, preservative-free [facility] [place], [place] 06-02-2017 pneumococcal polysac charide vaccine, 23 valent [facility], [place] 12-08-2016 Influenza Vaccine, unspecified formulation [facility] [place] 12-08-2016 influenza virus vacc ine, unspecified formulation [facility] [place] 12-09-2015 Influenza Vaccine, unspecified formulation [facility] [place] 12-09-2015 influenza virus vacc ine, unspecified formulation [facility] [place] 11-06-2014 Influenza Vaccine, unspecified formulation [facility] [place] 11-06-2014 influenza virus vacc ine, unspecified formulation [facility] [place] 11-19-2013 Influenza Vaccine, unspecified formulation [facility] [place] 11-19-2013 influenza virus vacc ine, unspecified formulation [facility] [place] Medications Current Medications Medication Drug Class(es) Dates [...] 9:36am Start: 01-24-2019 take 1 tablet by once daily Levothyroxine (Synthroid) 75 MCG tablet [...] MG PO Daily September 29, 2021 12:00am Payers Date Payer Category Payer Self-pay [id number] 2020 Medicaid [id number] 2017 Medicare [id number] 2017 Medicare BCBS MEDICARE AN THEM MEDIBLUE ESSENTIAL/PLUS xxxxxxxxxxxx 2017-Present [address] [address] [place] [address] [phone] [id number] 1959 Medicare [id number] 1945 Unknown [id number] 1945 Unknown [id number] 1945 Unknown [id number] 1945 Unknown [id number] 1945 Unknown [id number] 1945 Unknown [id number] 1945 Unknown [id number] Unknown [id number] Unknown [id number] Plan of Treatment Date Care Activity Detail Author Start: 01-14-2021 Fluoroscopic guidance [place] guided spin e [facility] Phone: Start: 12-24-2020 Fluoroscopic guidance [place] guided spin e [facility] Phone: Start: 08-16-2020 Lipid panel Lipid screen [place], [place] Start: 11-06-2019 Influenza vaccination Flu vacc ine (Season Ended) [place], [place] Start: 08-21-2019 End: 08-21-2019 Office Visit 08/21/2019 Office Visit Family Medicine Sanjana De La Cruz, [address] [place] [address] [place], [place] [id number] [facility] Start: 12-10-2018 Screening for malign ant neoplasm of colon Colon Cancer Screen FIT/FOBT [place] Start: 08-25-2018 Annual Wellness Visi t (AWV) Annual Wellness Visit (AWV) [place] Start: 12-05-1998 Screening for osteoporosis DEXA (modify frequency per FRAX score) [place] Start: 12-05-1993 Shingles Vaccine (1 of 2) Baltazar gles Vaccine (1 of 2) [place] Start: 12-05-1962 DTaP/Tdap/Td vaccine (1 - Tdap) DTaP/Tdap/Td vaccine (1 - Tdap) [place] Patient Education [facility] Work Phone: Patient referral [facility] Work Phone: Problems Active Problems Problem Classification Problem Date [...] COUGH, UNSPECIFIED; Translations: [COUGH, UNSPECIFIED] Onset: 02-28-2022 Procedures Date Procedure Procedure Detail Performing Clinician [...] BONETTI Start: 08-17-2019 Comprehensive metabolic panel SANJANA BONEMELANIE I Start: 08-17-2019 Lipid panel SANJANA BONETTI Start: 08-17-2019 Assay of free thyroxine Snajana Christie i Work Phone: Start: 08-17-2019 Assay of thyroid stimulating hormone tsh Sanjana De La Cruz Work Phone: Start: 08-17-2019 Blood count complete auto&auto difrntl wbc Sanjana De La Cruz Work Phone: Start: 08-17-2019 Comprehensive metabolic panel Sanjana De La Cruz Work Phone: Start: 08-17-2019 Lipid panel Sanjana De La Cruz Work Phone: Start: 08-06-2019 Radex hip unilateral with pelvis 2-3 views ASNJANA BONEYASMEEN Start: 01-25-2019 Radex hip unilateral with pelvis 2-3 views SANJANA DE LA CRUZ Start: 01-25-2019 Radex spine lumbosacral 2/3 views SANJANA DE LA CRUZ Results Test Name Value Interpretation Reference Range Facil ity Covid-19 PCR (CVDTBH)on 02-05 SARS-CoV-2 (COVID-19) RNA TREVOR+probe Ql (Unsp spec) Not detected Normal NOT DETECTED [facility] Comment on above: Result Comment: This test is not yet approved or cleared by the [place] FDA. When there are no FDA-approved or cleared tests available, and other criteria are met, FDA can make tests available under an emergency access mechanism called an Emergency Use Authorization (EUA). The EUA for this test is supported by the [place] of Health and Human Service's (HHS's) declaration [...] SARS-CoV-2. Performed By: #### C VDTB #### [facility] [address] [place] [address] Dr. Fabrice Garza INFLUENZA A AND B [facility] BEL[facility] Normal [facility] Comment on above: Result Comment: Nega tive for Flu A protein angiten. Infection due to Flu A cannot be ruled out. Flu A angiten in the sample may be below the detection limit of the test. Performed By: #### I NFLUAB #### [facility] [address] [place] [address] Dr. [facility] SEE BELOW Normal [facility] Comment on above: Result Comment: Nega tive for Flu B protein antigen. Infection due to Flu B cannot be ruled out. Flu B antigen in the sample may be below the detection limit of the test. Performed By: #### I NFLUAB #### [facility] [address] [place] [address] Dr. Fabrice Garza INFLUENZA A AG Negative Normal NEGATIVE SEE COMMENT [facility] Comment on above: Performed By: #### I NFLUAB #### [facility] [address] [place] [address] Dr. Fabrice Garza INFLUENZA B AG Negative Normal NEGATIVE SEE COMMENT [facility] Comment on above: Performed By: #### I NFLUAB #### [facility] [address] [place] [address] Dr. Fabrice Garza INTERNAL CONTROLS Within Normal Limits Normal Wi thin Normal Limits [facility] Comment on above: Performed By: #### I NFLUAB #### [facility] [address] [place] [address] Dr. Fabrice Garza XR CHEST 1 Von [...] by: WANDA HONG Date: 2022-02-28 16:37 Normal [facility] XR CERVICAL SPINE (2-3 VIEWS )on [...] Kranthi Ribeiro MD 09/04/21 Final result Normal [facility] CBC With Platelet and Differ entialon 09-03-2021 Abs Imm Granulocytes 0.01 E9/L Normal [facility] Absolute Basophils 0.04 E9/L Normal 0.00-0.20 [facility] Absolute Eosinophils 0.12 E9/L Normal 0.05-0.50 [facility] Absolute Lymphocytes 0.90 E9/L Low 1.50-4.00 [facility] Absolute Monocytes 0.37 E9/L Normal 0.10-0.95 [facility] Absolute Neutrophils 2.34 E9/L Normal 1.80-7.30 [facility] Basophils/100 WBC (Bld) 1.1 % Normal 0.0-2.0 [facility] Eosinophils/100 WBC (Bld) 3.2 % Normal 0.0-6.0 [facility] Hematocrit (Bld) [Volume fraction] 41.7 % Normal 34.0-48.0 [facility] Hemoglobin (Bld) [Mass/Vol] 12.8 g/dL Normal 11.5-15.5 [facility] Imm Granulocytes 0.3 % Normal 0.0-5.0 [facility] Lymphocytes/100 WBC (Bld) 23.8 % Normal 20.0-42.0 [facility] MCH (RBC) [Entitic mass] 30.5 pg Normal 26.0-35.0 [facility] MCHC 30.7 % Low 32.0-34.5 [facility] MCV (RBC) [Entitic vol] 99.5 fL Normal 80.0-99.9 [facility] Monocytes/100 WBC (Bld) 9.8 % Normal 2.0-12.0 [facility] Neutrophils/100 WBC (Bld) 61.8 % Normal 43.0-80.0 [facility] Platelet Count 232 E9/L Normal 130-450 [facility] Platelet mean volume (Bld) [Entitic vol] 12.3 fL High 7.0-12.0 [facility] RBC 4.19 E12/L Normal 3.50-5.50 [facility] RDW 12.6 fL Normal 11.5-15.0 [facility] WBC 3.8 E9/L Low 4.5-11.5 [facility] Comprehensive Metabolic Pane rosie 09-03-2021 Albumin [Mass/Vol] 4.8 g/dL Normal 3.5-5.2 [facility] ALP [Catalytic activity/Vol] 66 U/L Normal 35-104 [facility] ALT [Catalytic activity/Vol] 11 U/L Normal 0-32 [facility] Anion gap [Moles/Vol] 15 mmol/L Normal 7-16 [facility] AST [Catalytic activity/Vol] 23 U/L Normal 0-31 [facility] Bilirubin [Mass/Vol] 0.3 mg/dL Normal 0.0-1.2 [facility] Calcium [Mass/Vol] 9.8 mg/dL Normal 8.6-10.2 [facility] Chloride [Moles/Vol] 102 mmol/L Normal 98-107 [facility] CO2 [Moles/Vol] 25 mmol/L Normal 22-29 [facility] Creatinine [Mass/Vol] 0.8 mg/dL Normal 0.5-1.0 [facility] GFR Calculated >60 Normal >=60 [facility] Comment on above: Result Comment: [employer] Console Operator Track vika Kidney Disease: less than 60 ml/min/1.73 sq.m. Kidney Failure: less than 15 ml/min/1.73 sq.m. Results valid for patients 18 years and older. GFR/1.73 sq M.predicted among blacks MDRD (S/P/Bld) [Vol rate/Area] mL/min/{1.73_m2} Normal [facility] Glucose [Mass/Vol] 88 mg/dL Normal 74-99 [facility] Potassium [Moles/Vol] 4.3 mmol/L Normal 3.5-5.0 [facility] Protein [Mass/Vol] 7.2 g/dL Normal 6.4-8.3 [facility] Sodium [Moles/Vol] 142 mmol/L Normal 132-146 [facility] Urea nitrogen [Mass/Vol] 12 mg/dL Normal 6-23 [facility] Lipid Panelon 09-03-2021 Cholesterol [Mass/Vol] 210 mg/dL High 0-199 [facility] Cholesterol in HDL [Mass/Vol] 95 mg/dL Normal >40 [facility] Cholesterol in LDL [Mass/Vol] 98 mg/dL Normal 0-99 [facility] Triglyceride [Mass/Vol] 86 mg/dL Normal 0-149 [facility] VLDL Cholesterol (Calculated) 17 mg/dL Normal [facility] TSH w/out Reflexon TSH w/out Reflex 0.618 uIU/mL Normal 0.270-4.200 [facility] Thyroxine Freeon 09-03-2021 Thyroxine Free 2.12 ng/dL High 0.93-1.70 [facility] UR Microalbumin Randomon UR Microalbumin Random <12.0 Normal Not Established [facility] XR THORACIC SPINE (3 VIEWS)o n 09-03-2021 [...] Wanda Akers MD 09/03/21 Final result Normal [facility] Thyroxine Freeon 08-18-2019 Thyroxine Free 1.85 ng/dL High 0.93-1.70 [facility] CBC Auto Differentialon 08-05 Basophils (Bld) [#/Vol] 0.04 10*3/uL [place] Basophils/100 WBC (Bld) 1.0 % 0 - 2 % [place] Eosinophils (Bld) [#/Vol] 0.16 10*3/uL [place] Eosinophils/100 WBC (Bld) 4.1 % 0 - 6 % [place] Erythrocyte distribution width (RBC) [Ratio] 12.3 fL 11.5 - 15 fL [place] Hematocrit (Bld) [Volume fraction] 44.4 % 34 - 48 % [place] Hemoglobin (Bld) [Mass/Vol] 14.2 g/dL 11.5 - 15.5 g/dL [place] Immature granulocytes (Bld) [#/Vol] 0.01 10*3/uL E9/L [place] Immature granulocytes/100 WBC (Bld) 0.3 % 0 - 5 % [place] Interpretation and review of laboratory results Abnormal [place] Lymphocytes (Bld) [#/Vol] 1.04 10*3/uL Low [place] Lymphocytes/100 WBC (Bld) 26.5 % 20 - 42 % [place] MCH (RBC) [Entitic mass] 31.8 pg 26 - 35 pg [place] MCHC (RBC) [Mass/Vol] 32.0 % 32 - 34.5 % [place] MCV (RBC) [Entitic vol] 99.3 fL 80 - 99.9 fL [place] Monocytes (Bld) [#/Vol] 0.35 10*3/uL [place] Monocytes/100 WBC (Bld) 8.9 % 2 - 12 % [place] Neutrophils Absolute 2.32 [place] Neutrophils/100 WBC (Bld) 59.2 % 43 - 80 % [place] Platelet mean volume (Bld) [Entitic vol] 12.5 fL High 7 - 12 fL [place] Platelets (Bld) [#/Vol] 166 10*3/uL [place] RBC (Bld) [#/Vol] 4.47 10*6/uL [place] WBC (Bld) [#/Vol] 3.9 10*3/uL Low [place] CBC With Platelet and Differ entialon 08-17-2019 Abs Imm Granulocytes 0.01 E9/L Normal [facility] Basophils (Bld) [#/Vol] 0.04 E9/L Normal 0.00-0.20 [facility] Basophils/100 WBC (Bld) 1.0 % Normal 0.0-2.0 [facility] Eosinophils (Bld) [#/Vol] 0.16 E9/L Normal 0.05-0.50 [facility] Eosinophils/100 WBC (Bld) 4.1 % Normal 0.0-6.0 [facility] Erythrocyte distribution width (RBC) [Ratio] 12.3 fL Normal 11.5-15.0 [facility] Hematocrit (Bld) [Volume fraction] 44.4 % Normal 34.0-48.0 [facility] Hemoglobin (Bld) [Mass/Vol] 14.2 g/dL Normal 11.5-15.5 [facility] Imm Granulocytes 0.3 % Normal 0.0-5.0 [facility] Lymphocytes (Bld) [#/Vol] 1.04 E9/L Low 1.50-4.00 [facility] Lymphocytes/100 WBC (Bld) 26.5 % Normal 20.0-42.0 [facility] MCH (RBC) [Entitic mass] 31.8 pg Normal 26.0-35.0 [facility] MCHC (RBC) [Mass/Vol] 32.0 % Normal 32.0-34.5 [facility] MCV (RBC) [Entitic vol] 99.3 fL Normal 80.0-99.9 [facility] Monocytes (Bld) [#/Vol] 0.35 E9/L Normal 0.10-0.95 [facility] Monocytes/100 WBC (Bld) 8.9 % Normal 2.0-12.0 [facility] Neutrophils (Bld) [#/Vol] 2.32 E9/L Normal 1.80-7.30 [facility] Neutrophils/100 WBC (Bld) 59.2 % Normal 43.0-80.0 [facility] Platelet mean volume (Bld) [Entitic vol] 12.5 fL High 7.0-12.0 [facility] Platelets (Bld) [#/Vol] 166 E9/L Normal 130-450 [facility] RBC (Bld) [#/Vol] 4.47 E12/L Normal 3.50-5.50 [facility] WBC (Bld) [#/Vol] 3.9 E9/L Low 4.5-11.5 [facility] Comprehensive Metabolic Pane rosie 08-17-2019 Albumin [Mass/Vol] 4.4 g/dL 3.5 - 5.2 g/dL [place] Albumin [Mass/Vol] 4.4 g/dL Normal 3.5-5.2 [facility] ALP [Catalytic activity/Vol] 69 U/L 35 - 104 U/L [place] ALP [Catalytic activity/Vol] 69 U/L Normal 35-104 [facility] ALT [Catalytic activity/Vol] 9 U/L 0 - 32 U/L [place] ALT [Catalytic activity/Vol] 9 U/L Normal 0-32 [facility] Anion gap [Moles/Vol] 12 mmol/L 7 - 16 mmol/L [place] Anion gap [Moles/Vol] 12 mmol/L Normal 7-16 [facility] AST [Catalytic activity/Vol] 20 U/L 0 - 31 U/L [place] AST [Catalytic activity/Vol] 20 U/L Normal 0-31 [facility] Bilirubin [Mass/Vol] 0.6 mg/dL Normal 0.0-1.2 [facility] Bilirubin Ql (U) 0.6 mg/dL 0 - 1.2 mg/dL [place] Calcium [Mass/Vol] 10.2 mg/dL 8.6 - 10.2 mg/dL [place] Calcium [Mass/Vol] 10.2 mg/dL Normal 8.6-10.2 [facility] Chloride [Moles/Vol] 100 mmol/L 98 - 107 mmol/L [place] Chloride [Moles/Vol] 100 mmol/L Normal 98-107 [facility] CO2 [Moles/Vol] 29 mmol/L 22 - 29 mmol/L [place] CO2 [Moles/Vol] 29 mmol/L Normal 22-29 [facility] Creatinine [Mass/Vol] 0.8 mg/dL 0.5 - 1 mg/dL [place] Creatinine [Mass/Vol] 0.8 mg/dL Normal 0.5-1.0 [facility] GFR >60 [place] GFR Non- >60 >=60 mL/min/1.73 [place] Comment on above: Chronic Kidney Disea se: less than 60 ml/min/1.73 sq.m. Kidney Failure: less than 15 ml/min/1.73 sq.m. Results valid for patients 18 years and older. 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 Kidney Failure: less than 15 ml/min/1.73 sq.m. Results valid for patients 18 years and older. Glucose [Mass/Vol] 92 mg/dL 74 - 99 mg/dL [place], [place] Glucose [Mass/Vol] 92 mg/dL Normal 74-99 [facility] Interpretation and review of laboratory results Abnormal [place] Potassium [Moles/Vol] 5.1 mmol/L High 3.5 - 5 mmol/L [place] Potassium [Moles/Vol] 5.1 mmol/L High 3.5-5.0 [facility] Protein [Mass/Vol] 7.1 g/dL 6.4 - 8.3 g/dL [place] Protein [Mass/Vol] 7.1 g/dL Normal 6.4-8.3 [facility] Sodium [Moles/Vol] 141 mmol/L 132 - 146 mmol/L [place] Sodium [Moles/Vol] 141 mmol/L Normal 132-146 [facility] Urea nitrogen [Mass/Vol] 11 mg/dL 8 - 23 mg/dL [place] Urea nitrogen [Mass/Vol] 11 mg/dL Normal 8-23 [facility] Lipid Panelon 08-17-2019 Cholesterol [Mass/Vol] 192 mg/dL 0 - 199 mg/dL [place] Cholesterol [Mass/Vol] 192 mg/dL Normal 0-199 [facility] Cholesterol in HDL [Mass/Vol] 84 mg/dL >40 [place] Cholesterol in HDL [Mass/Vol] 84 mg/dL Normal >40 [facility] Cholesterol in LDL [Mass/Vol] 93 mg/dL 0 - 99 mg/dL [place] Cholesterol in LDL [Mass/Vol] 93 mg/dL Normal 0-99 [facility] Triglyceride [Mass/Vol] 73 mg/dL 0 - 149 mg/dL [place] Triglyceride [Mass/Vol] 73 mg/dL Normal 0-149 [facility] VLDL Cholesterol (Calculated) 15 mg/dL Normal [facility] VLDL Cholesterol Calculated 15 mg/dL [place] T4, Freeon 08-17-2019 Free T4 [Mass/Vol] 1.85 ng/dL High 0.93 - 1.7 ng/dL [place] Interpretation and review of laboratory results Abnormal [place] TSH w/out Reflexon 0 TSH Qn 2.150 uIU/mL Normal 0.270-4.200 [facility] TSH without Reflexon 020 TSH Qn 2.150 m[IU]/L [facility] [place] [place] XR KNEE RIGHT (3 VIEWS)on XR KNEE RIGHT (3 VIEWS) EXAMINATION: THREE XRAY VIEWS OF THE RIGHT KNEE 08/06/2019 4:58 pm COMPARISON: None. HISTORY: ORDERING SYSTEM PROVIDED HISTORY: Right hip pain Pain FINDINGS: There is mild infrapatellar soft tissue swelling. Ovyk-ia-dtsbeyvy patellofemoral joint space narrowing. There is a [...] Maury Ojeda MD 08/07/19 Final result Normal [facility] XR HIP RIGHT (2-3 VIEWS)on 08-06-2019 [...] Alex Frias MD 08/06/19 Final result Normal [facility] XR HIP 2-3 VW W PELVIS [...] Kranthi Solis DO 01/25/19 Final result Normal [facility] XR LUMBAR SPINE (2-3 VIEWS)o n [...] Kranthi Solis DO 01/25/19 Final result Normal [facility] Social History Date Type Detail Facility Start: [facility]02[facility] Work Phone: Start: 10-02-2021 Yes [facility] Work Phone: Start: 12-24-2020 Former Smoker [facility] Work Phone: Start: 12-18-202012-24 [facility] Work Phone: Start: 12-18-202012-23 [facility] Work Phone: Start: 08-06-2019 Tobacco smoking stat [facility] Current every day sm[place] Start: 08-06-2019 Cigarettes smoked current (pack per day) - Reported [place] Start: 08-06-2019 Alcohol intake Current drinke r of alcohol (finding) [place] Start: 11-23-2018 History SDOH Alcohol Frequency 2 [place] Start: 11-23-2018 History SDOH Alcohol Std Drinks 1 [place] Start: 1945 Sex Assigned At Female T [facility] Work Phone: History of tobacco use Cigarette Smoker [place] Sex Assigned At Not on file [place] Vital Signs Date Time Vital Sign Value Performing Clinician Faci lity 10-02-2021 13:15-0400 Diastolic blood pressure 74 mm[Hg] DO Kimmy Bonetti Work Phone: [facility] Work Phone: 10-02-2021 13:15-0400 Heart rate 76 /min DO Kimmy Bonetti Work Phone: [facility] Work Phone: 10-02-2021 13:15-0400 Respiratory rate 18 /min DO Kimmy Bonetti Work Phone: [facility] Work Phone: 10-02-2021 13:15-0400 SaO2% (BldA) [Mass fraction] 97 % DO Kimmy Bonetti Work Phone: [facility] Work Phone: 10-02-2021 13:15-0400 Systolic blood pressure 133 mm[Hg] DO Kimmy Bonetti Work Phone: [facility] Work Phone: 10-02-2021 12:53-0400 Body temperature 97.3 [degF] DO Kimmy Bonetti Work Phone: [facility] Work Phone: 10-02-2021 10:18-0400 Body height 160.02 cm DO Kimmy De La Cruz Work Phone: [facility] Work Phone: 10-02-2021 10:18-0400 Body mass index (BMI) [Ratio] 19.1 kg/m2 DO Kimmykim De La Cruz Work Phone: [facility] Work Phone: 10-02-2021 10:18-0400 Body weight 48.99 kg DO Kimmy De La Cruz Work Phone: [facility] Work Phone: 01-14-2021 09:45-0500 Body temperature 97.8 [degF] [facility] Phone: 01-14-2021 09:45-0500 Diastolic blood pressure 74 mm[Hg] [facility] Phone: 01-14-2021 09:45-0500 Heart rate 60 /min [facility] Phone: 01-14-2021 09:45-0500 Respiratory rate 16 /min [facility] Phone: 01-14-2021 09:45-0500 SaO2% (BldA) [Mass fraction] 99 % [facility] Phone: 01-14-2021 09:45-0500 Systolic blood pressure 160 mm[Hg] [facility] Phone: 01-12-2021 17:29-0500 Body height 160.02 cm [facility] Phone: 01-12-2021 17:29-0500 Body mass index (BMI) [Ratio] 19.5 kg/m2 [facility] Phone: 01-12-2021 17:29-0500 Body weight 49.9 kg [facility] Phone: 12-24-2020 10:00-0400 Body temperature 97 [degF] [facility] Phone: 12-24-2020 10:00-0400 Diastolic blood pressure 66 mm[Hg] [facility] Phone: 12-24-2020 10:00-0400 Heart rate 71 /min [facility] Phone: 12-24-2020 10:00-0400 Respiratory rate 16 /min [facility] Phone: 12-24-2020 10:00-0400 SaO2% (BldA) [Mass fraction] 97 % [facility] Phone: 12-24-2020 10:00-0400 Systolic blood pressure 158 mm[Hg] [facility] Phone: 12-18-2020 12:08-0400 Body height 160.02 cm [facility] Phone: 12-18-2020 12:08-0400 Body mass index (BMI) [Ratio] 19.5 kg/m2 [facility] Phone: 12-18-2020 12:08-0400 Body weight 49.9 kg [facility] Phone: Functional Status Date Assessment Result Facility 10-02-2021 Functional status Ability to Fol low Directions Excellent [facility] Work Phone: 10-02-2021 Functional status Glasses [facility] Work Phone: 01-14-2021 Functional status Mobility - Ski n Risk Assessment Scale No Limitations [facility] Phone: 01-12-2021 Functional status Visual Assisti ve Devices Glasses [facility] Phone: 12-24-2020 Functional status Mobility - Ski n Risk Assessment Scale No Limitations [facility] Phone: 10-14-2021 Functional status Visual Assisti ve Devices Glasses [facility] Phone: Mental Status Date Assessment Result Facility 10-02-2021 Cognitive function Patient Behav ior Appropriate;Cooperative [facility] Work Phone: 10-02-2021 Cognitive function No [facility] Work Phone: 01-14-2021 Cognitive function Level Of Cons ciousness Awake;Alert;Appropriate;Follow s Commands [facility] Phone: 12-24-2020 Cognitive function Level Of Cons ciousness Awake;Alert;Appropriate;Follow s Commands [facility] Phone: Evaluation note Note Date & Type Note Facility Evaluation note No assessment information availa ble [facility] Phone: Hospital Discharge instructions Note Date & Type Note Facility Hospital Discharge instructions Additional Instructions NO LIFTING NO BENDING KEEP EYE SHIELD IN PLACE FOLLOW UP WITH DR HARTMAN TOMORROW AT 9:30AM TAKE ALL EYE DROPS TO OFFICE VISIT [facility] Work Phone: Summary Purpose Family History No Family History Records Found Relationship Condition Age at Onset Recorded Date/T victorino Not Specified Malignant neoplasm of prostate Unknown Relationship Condition Age at Onset Recorded Date/T victorino Unknown Family Anesthesia Reaction?No Unknown October 02, 2021 10:31am Advance Directives No Advanced Directives Records FoundDocuments on File Type Date Recorded 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 Advance Directives and Living Will Power of Energy Trading Analyst Advance Directive Response Recorded Date/ Time Advance Directives No December 24, 2020 9:04am Advance Directive Response Recorded Date/ Time Advance Directives No January 9:07am Advance Directive Response Recorded Date/ Time Advance Directives No October 02 10:31am Organ Donor No January 24, 019 4:58pm Power of Energy Trading Analyst No October 02 10:31am Tissue Donor No January 24, 019 4:58pm Assessments Diagnosis Acquired hypothyroidism Unspecified hypothyroidism Mixed hyperlipidemia Chief Complaint and Reason for Visit Chief Complaint SPS.MRIRES Chief Complaint INJECTFU Chief Complaint M48.02,R29.898,R20.2 CAT WITH IOL LEFT EYE ([place] 09/24 DD) Additional Source Comments INFORMATION SOURCE (unrecogn ized section and content) DATE CREATED AUTHOR 08/07/2019 [facility] DATE CREATED AUTHOR AUTHOR'S ORGANIZ ATION 08/19/2019 [facility] DATE CREATED AUTHOR AUTHOR'S ORGANIZ ATION 09/04/2021 [facility] DATE CREATED AUTHOR AUTHOR'S ORGANIZ ATION 09/04/2021 [facility] DATE CREATED AUTHOR AUTHOR'S ORGANIZ ATION 2021 [facility] ([place]) DATE CREATED AUTHOR AUTHOR'S ORGANIZ ATION 03/02/2022 [facility] DATE CREATED AUTHOR AUTHOR'S ORGANIZ ATION 08/26/2023 [facility] Goals (unrecognized section and content) Goals [...] BE BASED ON THE PRIMARY CLINICAL RECORDS. [employer] provides no warranty or guarantee of the accuracy or completeness of information in this document.
== END 2023-09-19 13:48 | disposition home or self-care (01) ==
LOC: VC 13:47
PROVIDERS: PCP Family Medicine; Visit Provider Family Medicine
DX: I73.9 Peripheral vascular disease, unspecified (principal)
CPT/HCPCS: 93923

== ENCOUNTER 2023-09-27 11:23 | Outpatient (OUT) | payer MEDICARE, SELFPAY ==
--- NOTE | 2023-09-27 11:29 | US_ITS ---
[address] [address] Patient Name: CRISTINE AVELAR MRN: [id number] date: 1945 Sex: F Assigned Patient Location: Current Patient Location: Accession/Order Number: [id number] Exam Date: 09/27/2023 11:30 Report Date: 09/28/2023 07:11 At the request of: PRISCILLA MARSHALL Procedure: US arterial duplex LE BI EXAMINATION: US arterial duplex LE BI HISTORY: Peripheral Artery Disease I73.9 COMPARISON: No relevant comparison available. TECHNIQUE: Color duplex Doppler ultrasound evaluation analysis was performed in the usual manner. FINDINGS: RIGHT LOWER EXTREMITY ARTERIAL Minimal atherosclerotic plaque. Proximal triphasic waveform. Biphasic waveform demonstrated popliteal and distal arterial tree External Iliac PSV: 132.55 cm/s External Iliac EDV: 2.46 cm/s Common Femoral PSV: 84.40 cm/s Common Femoral EDV: 0 cm/s Superficial Femoral Proximal PSV: 74.72 cm/s Proximal EDV: 0 cm/s Mid PSV: 86.03 cm/s Mid EDV: 0 cm/s Distal PSV: 45.34 cm/s Distal EDV: 0 cm/s Popliteal Proximal PSV 64.00 cm/s Popliteal Proximal EDV: 0 cm/s Posterior Tibial Proximal PSV: 85.74 cm/s Proximal EDV: 0 cm/s Mid PSV: 69.47 cm/s Mid EDV: 0 cm/s Distal PSV: 62.88 cm/s Distal EDV: 0 cm/s Anterior Tibial Proximal PSV: 59.79 cm/s Proximal EDV: 0 cm/s Mid PSV: 59.81 cm/s Mid EDV: Distal PSV: 80.53 cm/s Distal EDV: 3.56 cm/s LEFT LOWER EXTREMITY ARTERIAL Minimal atherosclerotic plaque. Biphasic waveform throughout the left leg External Iliac PSV: 120.72 cm/s External Iliac EDV: 0 cm/s Common Femoral PSV: 81.27 cm/s Common Femoral EDV: 0 cm/s Superficial Femoral Proximal PSV: 87.03 cm/s Proximal EDV: 4.85 cm/s Mid PSV: 68.91 cm/s Mid EDV: 0 cm/s Distal PSV: 81.85 cm/s Distal EDV: 0 cm/s Popliteal Proximal PSV: 93.54 cm/s Popliteal Proximal EDV: 0 cm/s Posterior Tibial Proximal PSV: 74.60 cm/s Proximal EDV: 3.41 cm/s Mid PSV: 57.04 cm/s Mid EDV: 3.41 cm/s Distal PSV: 32.86 cm/s Distal EDV: 0 cm/s Anterior Tibial Proximal PSV: 59.18 cm/s Proximal EDV: 5.60 cm/s Mid PSV: 49.30 cm/s Mid EDV: 0 cm/s Distal PSV: 50.41 cm/s Distal EDV: 0 cm/s US/US arterial duplex LE BI IMPRESSION: Mild bilateral atherosclerotic plaque Biphasic waveforms suggesting mild ischemia Electronically authenticated by: WANDA DEVLIN Date: 09/28/2023 07:11
== END 2023-09-27 11:24 | disposition home or self-care (01) ==
LOC: US 11:23
PROVIDERS: PCP Family Medicine; Visit Provider Family Medicine
DX: I73.9 Peripheral vascular disease, unspecified (principal)
CPT/HCPCS: 93925

== ENCOUNTER 2023-10-17 10:11 | Outpatient (OUT) | payer MEDICARE, SELFPAY ==
--- NOTE | 2023-10-17 | XR_ITS ---
The [address] [address] Patient Name: CRISTINE AVELAR MRN: [id number] date: 1945 Sex: F Assigned Patient Location: Current Patient Location: Accession/Order Number: [id number] Exam Date: 10/17/2023 10:12 Report Date: 10/19/2023 06:37 At the request of: THERON LARA Procedure: XR elbow RT min 3V PROCEDURE: XR elbow RT min 3V HISTORY: RIGHT ELBOW PAIN COMPARISON: XR elbow right 09/05/2023 FINDINGS: BONES:Subtle band of sclerosis across the neck of proximal radius. SOFT TISSUES:No visible soft tissue swelling. EFFUSION:None visible. OTHER: Negative. XR/XR elbow RT min 3V IMPRESSION: 1. Near complete bone healing of prior radial neck fracture. Electronically authenticated by: THERON MEHTA Date: 10/19/2023 06:37
--- OUTSIDE RECORDS SUMMARY | 2023-10-17 10:29 | XMS_ITS | CCD ---
Author Organization [facility] Care Team Providers Care Motors And Generators Inspector Name Role Phone SANJANA DE LA CRUZ Primary Care Unavailable BONETTI, SUE Primary Care Unavailable BONETTI, SUE Primary Care Unavailable BONETTI, SANJANA PEOPLES Referring Unavailable BONETTI, SANJANA PEOPLES Primary Care Unavailable Bonettgianluca, Sanjana Peoples Primary Care Provider [phone] JONO, SANJANA PEOPLES Primary Care Unavailable Bonettgianluca, [...] Facility (1 source) cefdinir Drug Allergy 11-16-2018 [facility] [place] Medications Current Medications Medication Drug Class(es) Dates [...] 9:36am Start: 01-24-2019 take 1 tablet by ehtel th once daily Simvastatin (Zocor) 20 MG [...] spec) Not detected Normal NOT DETECTED [facility] Comment on above: Result Comment: This test is not yet approved or cleared by the [place] FDA. When there are no FDA-approved or cleared tests available, and other criteria are met, FDA can make tests available under an emergency access mechanism called an Emergency Use Authorization (EUA). The EUA for this test is supported by the Ending Machine Operator of Health and Human Service's (HHS's) declaration [...] SARS-CoV-2. Performed By: #### C VDTB #### [facility] [address] [place] [address] Dr. Fabrice Garza INFLUENZA A AND B AGon 02-28 [facility] SEE BELOW Normal [facility] Comment on above: Result Comment: Nega tive for Flu A protein angiten. Infection due to Flu A cannot be ruled out. Flu A angiten in the sample may be below the detection limit of the test. Performed By: #### I NFLUAB #### [facility] [address] [place] [address] Dr. [facility] BELOW Normal [facility] Comment on above: Result Comment: Nega tive for Flu B protein antigen. Infection due to Flu B cannot be ruled out. Flu B antigen in the sample may be below the detection limit of the test. Performed By: #### I NFLUAB #### [facility] [address] [place] [address] Dr. Fabrice Garza INFLUENZA A AG Negative Normal NEGATIVE SEE COMMENT [facility] Comment on above: Performed By: #### I NFLUAB #### [facility] [address] [place] [address] Dr. Fabrice Garza INFLUENZA B AG Negative Normal NEGATIVE SEE COMMENT [facility] Comment on above: Performed By: #### I NFLUAB #### [facility] [address] [place] [address] Dr. Fabrice Garza INTERNAL CONTROLS Within Normal Limits Normal Wi thin Normal Limits [facility] Comment on above: Performed By: #### I NFLUAB #### [facility] [address] [place] [address] Dr. Fabrice Garza XR CHEST 1 Von [...] WANDA HONG Date: 2022-02-28 16:37 Normal [facility] XR CERVICAL SPINE (2-3 VIEWS )on 09-04-2021 [...] Kranthi Ribeiro MD 09/04/21 Final result Normal [facility] CBC With Platelet and Differ entialon 09-03-2021 Abs Imm Granulocytes 0.01 E9/L Normal [facility] Absolute Basophils 0.04 E9/L Normal 0.00-0.20 [facility] Absolute Eosinophils 0.12 E9/L Normal 0.05-0.50 [facility] Absolute Lymphocytes 0.90 E9/L Low 1.50-4.00 [facility] Absolute Monocytes 0.37 E9/L Normal 0.10-0.95 [facility] Absolute Neutrophils 2.34 E9/L Normal 1.80-7.30 [facility] Basophils/100 WBC (Bld) 1.1 % Normal 0.0-2.0 [facility] Eosinophils/100 WBC (Bld) 3.2 % Normal 0.0-6.0 [facility] Hematocrit (Bld) [Volume fraction] 41.7 % Normal 34.0-48.0 [facility] Hemoglobin (Bld) [Mass/Vol] 12.8 g/dL Normal 11.5-15.5 [facility] Imm Granulocytes 0.3 % Normal 0.0-5.0 [facility] Lymphocytes/100 WBC (Bld) 23.8 % Normal 20.0-42.0 [facility] MCH (RBC) [Entitic mass] 30.5 pg Normal 26.0-35.0 [facility] MCHC 30.7 % Low 32.0-34.5 [facility] MCV (RBC) [Entitic vol] 99.5 fL Normal 80.0-99.9 [facility] Monocytes/100 WBC (Bld) 9.8 % Normal 2.0-12.0 [facility] Neutrophils/100 WBC (Bld) 61.8 % Normal 43.0-80.0 [facility] Platelet Count 232 E9/L Normal 130-450 [facility] Platelet mean volume (Bld) [Entitic vol] 12.3 fL High 7.0-12.0 [facility] RBC 4.19 E12/L Normal 3.50-5.50 [facility] RDW 12.6 fL Normal 11.5-15.0 [facility] WBC 3.8 E9/L Low 4.5-11.5 [facility] Comprehensive Metabolic Pane rosie 09-03-2021 Albumin [Mass/Vol] 4.8 g/dL Normal 3.5-5.2 [facility] ALP [Catalytic activity/Vol] 66 U/L Normal 35-104 [facility] ALT [Catalytic activity/Vol] 11 U/L Normal 0-32 [facility] Anion gap [Moles/Vol] 15 mmol/L Normal 7-16 [facility] AST [Catalytic activity/Vol] 23 U/L Normal 0-31 [facility] Bilirubin [Mass/Vol] 0.3 mg/dL Normal 0.0-1.2 [facility] Calcium [Mass/Vol] 9.8 mg/dL Normal 8.6-10.2 [facility] Chloride [Moles/Vol] 102 mmol/L Normal 98-107 [facility] CO2 [Moles/Vol] 25 mmol/L Normal 22-29 [facility] Creatinine [Mass/Vol] 0.8 mg/dL Normal 0.5-1.0 [facility] GFR Calculated >60 Normal >=60 [facility] Comment on above: Result Comment: Hot Stick Man vika Kidney Disease: less than 60 ml/min/1.73 sq.m. Kidney Failure: less than 15 ml/min/1.73 sq.m. Results valid for patients 18 years and older. GFR/1.73 sq M.predicted among blacks MDRD (S/P/Bld) [Vol rate/Area] mL/min/{1.73_m2} Normal [facility] Glucose [Mass/Vol] 88 mg/dL Normal 74-99 [facility] Potassium [Moles/Vol] 4.3 mmol/L Normal 3.5-5.0 [facility] Protein [Mass/Vol] 7.2 g/dL Normal 6.4-8.3 [facility] Sodium [Moles/Vol] 142 mmol/L Normal 132-146 [facility] Urea nitrogen [Mass/Vol] 12 mg/dL Normal 6-23 [facility] Lipid Panelon 09-03-2021 Cholesterol [Mass/Vol] 210 mg/dL High 0-199 [facility] Cholesterol in HDL [Mass/Vol] 95 mg/dL Normal >40 [facility] Cholesterol in LDL [Mass/Vol] 98 mg/dL Normal 0-99 [facility] Triglyceride [Mass/Vol] 86 mg/dL Normal 0-149 [facility] VLDL Cholesterol (Calculated) 17 mg/dL Normal [facility] TSH w/out Reflexon TSH w/out Reflex 0.618 uIU/mL Normal 0.270-4.200 [facility] Thyroxine Freeon 09-03-2021 Thyroxine Free 2.12 ng/dL High 0.93-1.70 [facility] UR Microalbumin Randomon UR Microalbumin Random <12.0 Normal Not Established [facility] XR THORACIC SPINE (3 VIEWS)o n [...] Wanda Akers MD 09/03/21 Final result Normal [facility] Thyroxine Freeon 08-18-2019 Thyroxine Free 1.85 ng/dL High 0.93-1.70 [facility] CBC Auto Differentialon 08-05 Basophils (Bld) [#/Vol] 0.04 10*3/uL [place] Basophils/100 WBC (Bld) 1.0 % 0 - 2 % [place] Eosinophils (Bld) [#/Vol] 0.16 10*3/uL [place] Eosinophils/100 WBC (Bld) 4.1 % 0 - 6 % [place] Erythrocyte distribution width (RBC) [Ratio] 12.3 fL 11.5 - 15 fL [place] Hematocrit (Bld) [Volume fraction] 44.4 % 34 - 48 % [place] Hemoglobin (Bld) [Mass/Vol] 14.2 g/dL 11.5 - 15.5 g/dL [place] Immature granulocytes (Bld) [#/Vol] 0.01 10*3/uL E9/L [place] Immature granulocytes/100 WBC (Bld) 0.3 % 0 - 5 % [place] Interpretation and review of laboratory results Abnormal [place] Lymphocytes (Bld) [#/Vol] 1.04 10*3/uL [place] Lymphocytes/100 WBC (Bld) 26.5 % 20 - 42 % [place] MCH (RBC) [Entitic mass] 31.8 pg 26 - 35 pg [place] MCHC (RBC) [Mass/Vol] 32.0 % 32 - 34.5 % [place] MCV (RBC) [Entitic vol] 99.3 fL 80 - 99.9 fL [place] Monocytes (Bld) [#/Vol] 0.35 10*3/uL [place] Monocytes/100 WBC (Bld) 8.9 % 2 - 12 % [place] Neutrophils Absolute 2.32 [place] Neutrophils/100 WBC (Bld) 59.2 % 43 - 80 % [place] Platelet mean volume (Bld) [Entitic vol] 12.5 fL High 7 - 12 fL [place] Platelets (Bld) [#/Vol] 166 10*3/uL [place] RBC (Bld) [#/Vol] 4.47 10*6/uL [place] WBC (Bld) [#/Vol] 3.9 10*3/uL [place] CBC With Platelet and Differ entialon 08-17-2019 Abs Imm Granulocytes 0.01 E9/L Normal [facility] Basophils (Bld) [#/Vol] 0.04 E9/L Normal 0.00-0.20 [facility] Basophils/100 WBC (Bld) 1.0 % Normal 0.0-2.0 [facility] Eosinophils (Bld) [#/Vol] 0.16 E9/L Normal 0.05-0.50 [facility] Eosinophils/100 WBC (Bld) 4.1 % Normal 0.0-6.0 [facility] Erythrocyte distribution width (RBC) [Ratio] 12.3 fL Normal 11.5-15.0 [facility] Hematocrit (Bld) [Volume fraction] 44.4 % Normal 34.0-48.0 [facility] Hemoglobin (Bld) [Mass/Vol] 14.2 g/dL Normal 11.5-15.5 [facility] Imm Granulocytes 0.3 % Normal 0.0-5.0 [facility] Lymphocytes (Bld) [#/Vol] 1.04 E9/L Low 1.50-4.00 [facility] Lymphocytes/100 WBC (Bld) 26.5 % Normal 20.0-42.0 [facility] MCH (RBC) [Entitic mass] 31.8 pg Normal 26.0-35.0 [facility] MCHC (RBC) [Mass/Vol] 32.0 % Normal 32.0-34.5 [facility] MCV (RBC) [Entitic vol] 99.3 fL Normal 80.0-99.9 [facility] Monocytes (Bld) [#/Vol] 0.35 E9/L Normal 0.10-0.95 [facility] Monocytes/100 WBC (Bld) 8.9 % Normal 2.0-12.0 [facility] Neutrophils (Bld) [#/Vol] 2.32 E9/L Normal 1.80-7.30 [facility] Neutrophils/100 WBC (Bld) 59.2 % Normal 43.0-80.0 [facility] Platelet mean volume (Bld) [Entitic vol] 12.5 fL High 7.0-12.0 [facility] Platelets (Bld) [#/Vol] 166 E9/L Normal 130-450 [facility] RBC (Bld) [#/Vol] 4.47 E12/L Normal 3.50-5.50 [facility] WBC (Bld) [#/Vol] 3.9 E9/L Low 4.5-11.5 [facility] Comprehensive Metabolic Pane rosie 08-17-2019 Albumin [Mass/Vol] 4.4 g/dL Normal 3.5-5.2 [facility] ALP [Catalytic activity/Vol] 69 U/L Normal 35-104 [facility] ALT [Catalytic activity/Vol] 9 U/L Normal 0-32 [facility] Anion gap [Moles/Vol] 12 mmol/L Normal 7-16 [facility] AST [Catalytic activity/Vol] 20 U/L Normal 0-31 [facility] Bilirubin [Mass/Vol] 0.6 mg/dL Normal 0.0-1.2 [facility] Calcium [Mass/Vol] 10.2 mg/dL Normal 8.6-10.2 [facility] Chloride [Moles/Vol] 100 mmol/L Normal 98-107 [facility] CO2 [Moles/Vol] 29 mmol/L Normal 22-29 [facility] Creatinine [Mass/Vol] 0.8 mg/dL Normal 0.5-1.0 [facility] GFR/1.73 sq M predicted among blacks MDRD (S/P/Bld) [Vol rate/Area] mL/min/{1.73_m2} Normal [facility] GFR/1.73 sq M predicted among non-blacks MDRD (S/P/Bld) [Vol rate/Area] mL/min/{1.73_m2} Normal >=60 [facility] Comment on above: Result Comment: Hot Stick Man vika Kidney Disease: less than 60 ml/min/1.73 sq.m. Kidney Failure: less than 15 ml/min/1.73 sq.m. Results valid for patients 18 years and older. Glucose [Mass/Vol] 92 mg/dL Normal 74-99 [facility] Potassium [Moles/Vol] 5.1 mmol/L High 3.5-5.0 [facility] Protein [Mass/Vol] 7.1 g/dL Normal 6.4-8.3 [facility] Sodium [Moles/Vol] 141 mmol/L Normal 132-146 [facility] Urea nitrogen [Mass/Vol] 11 mg/dL Normal 8-23 [facility] Albumin [Mass/Vol] 4.4 g/dL 3.5 - 5.2 g/dL [place] ALP [Catalytic activity/Vol] 69 U/L 35 - 104 U/L [place] ALT [Catalytic activity/Vol] 9 U/L 0 - 32 U/L [place] Anion gap [Moles/Vol] 12 mmol/L 7 - 16 mmol/L [place] AST [Catalytic activity/Vol] 20 U/L 0 - 31 U/L [place] Bilirubin Ql (U) 0.6 mg/dL 0 - 1.2 mg/dL [place] Calcium [Mass/Vol] 10.2 mg/dL 8.6 - 10.2 mg/dL [place] Chloride [Moles/Vol] 100 mmol/L 98 - 107 mmol/L [place] CO2 [Moles/Vol] 29 mmol/L 22 - 29 mmol/L [place] Creatinine [Mass/Vol] 0.8 mg/dL 0.5 - 1 mg/dL [place] GFR >60 [place] GFR Non- >60 >=60 mL/min/1.73 [place] Comment on above: Chronic Kidney Disea se: less than 60 ml/min/1.73 sq.m. Kidney Failure: less than 15 ml/min/1.73 sq.m. Results valid for patients 18 years and older. Glucose [Mass/Vol] 92 mg/dL 74 - 99 mg/dL [place] Interpretation and review of laboratory results Abnormal [place] Potassium [Moles/Vol] 5.1 mmol/L High 3.5 - 5 mmol/L [place] Protein [Mass/Vol] 7.1 g/dL 6.4 - 8.3 g/dL [place] Sodium [Moles/Vol] 141 mmol/L 132 - 146 mmol/L [place] Urea nitrogen [Mass/Vol] 11 mg/dL 8 - 23 mg/dL [place] Lipid Panelon 08-17-2019 Cholesterol [Mass/Vol] 192 mg/dL Normal 0-199 [facility] Cholesterol in HDL [Mass/Vol] 84 mg/dL Normal >40 [facility] Cholesterol in LDL [Mass/Vol] 93 mg/dL Normal 0-99 [facility] Triglyceride [Mass/Vol] 73 mg/dL Normal 0-149 [facility] VLDL Cholesterol (Calculated) 15 mg/dL Normal [facility] Cholesterol [Mass/Vol] 192 mg/dL 0 - 199 mg/dL [place] Cholesterol in HDL [Mass/Vol] 84 mg/dL >40 [place] Cholesterol in LDL [Mass/Vol] 93 mg/dL 0 - 99 mg/dL [place] Triglyceride [Mass/Vol] 73 mg/dL 0 - 149 mg/dL [place] VLDL Cholesterol Calculated 15 mg/dL [place] T4, Freeon 08-17-2019 Free T4 [Mass/Vol] 1.85 ng/dL High 0.93 - 1.7 ng/dL [place] Interpretation and review of laboratory results Abnormal [place] TSH w/out Reflexon 0 TSH Qn 2.150 uIU/mL Normal 0.270-4.200 [facility] TSH without Reflexon 020 TSH Qn 2.150 m[IU]/L [place] XR KNEE RIGHT (3 VIEWS)on XR KNEE RIGHT (3 VIEWS) EXAMINATION: THREE XRAY VIEWS OF THE RIGHT KNEE 08/06/2019 4:58 pm COMPARISON: None. HISTORY: ORDERING SYSTEM PROVIDED HISTORY: Right hip pain Pain FINDINGS: There is mild infrapatellar soft tissue swelling. [id number] patellofemoral joint space narrowing. There is a [...] Maury Ojeda MD 08/07/19 Final result Normal [facility] XR HIP RIGHT (2-3 VIEWS)on 0 [...] Alex Frias MD 08/06/19 Final result Normal [facility] XR HIP 2-3 VW W PELVIS [...] Kranthi Solis DO 01/25/19 Final result Normal [facility] XR LUMBAR SPINE (2-3 VIEWS)o n [...] Kranthi Solis DO 01/25/19 Final result Normal [facility] Vital Signs Date Time Vital Sign Value Performing Clinician Faci lity 10-02-2021 13:15-0400 Diastolic blood pressure 74 mm[Hg] DO Kimmy Bonetti Work Phone: [facility] Work Phone: 10-02-2021 13:15-0400 Heart rate 76 /min DO Kimmy Bonetti Work Phone: [facility] Work Phone: 10-02-2021 13:15-0400 Respiratory rate 18 /min DO Kimmy Bonetti Work Phone: [facility] Work Phone: 10-02-2021 13:15-0400 SaO2% (BldA) [Mass fraction] 97 % DO Kimmy Bonetti Work Phone: [facility] Work Phone: 10-02-2021 13:15-0400 Systolic blood pressure 133 mm[Hg] DO Kimmy Bonetti Work Phone: [facility] Work Phone: 10-02-2021 12:53-0400 Body temperature 97.3 [degF] DO Kimmy De La Cruz Work Phone: [facility] Work Phone: 10-02-2021 10:18-0400 Body height 160.02 cm DO Kimmy De La Cruz Work Phone: [facility] Work Phone: 10-02-2021 10:18-0400 Body mass index (BMI) [Ratio] 19.1 kg/m2 DO Kimmy De La Cruz Work Phone: [facility] Work Phone: 10-02-2021 10:18-0400 Body weight 48.99 kg DO Kimmy De La Cruz Work Phone: [facility] Work Phone: 01-14-2021 09:45-0500 Body temperature 97.8 [degF] [facility] Phone: 01-14-2021 09:45-0500 Diastolic blood pressure 74 mm[Hg] [facility] Phone: 01-14-2021 09:45-0500 Heart rate 60 /min [facility] Phone: 01-14-2021 09:45-0500 Respiratory rate 16 /min [facility] Phone: 01-14-2021 09:45-0500 SaO2% (BldA) [Mass fraction] 99 % [facility] Phone: 01-14-2021 09:45-0500 Systolic blood pressure 160 mm[Hg] [facility] Phone: 01-12-2021 17:29-0500 Body height 160.02 cm [facility] Phone: 01-12-2021 17:29-0500 Body mass index (BMI) [Ratio] 19.5 kg/m2 [facility] Phone: 01-12-2021 17:29-0500 Body weight 49.9 kg [facility] Phone: 12-24-2020 10:00-0400 Body temperature 97 [degF] [facility] Phone: 12-24-2020 10:00-0400 Diastolic blood pressure 66 mm[Hg] [facility] Phone: 12-24-2020 10:00-0400 Heart rate 71 /min [facility] Phone: 12-24-2020 10:00-0400 Respiratory rate 16 /min [facility] Phone: 12-24-2020 10:00-0400 SaO2% (BldA) [Mass fraction] 97 % [facility] Phone: 12-24-2020 10:00-0400 Systolic blood pressure 158 mm[Hg] [facility] Phone: 12-18-2020 12:08-0400 Body height 160.02 cm [facility] Phone: 12-18-2020 12:08-0400 Body mass index (BMI) [Ratio] 19.5 kg/m2 [facility] Phone: 12-18-2020 12:08-0400 Body weight 49.9 kg [facility] Phone: Encounters Encounter Date Encounter Type Care Provider Facility Start: 08-25-2023 End: 08-25-2023 [facility] Start: 02-28-2022 End: 02-28-2022 ambulatory PHIL ROBLEDO Facility: Start: 10-02-2021 End: 10-02-2021 ambulatory Andrez María Facility:[facility] Start: 10-02-2021 End: 10-02-2021 Admission to same day surgery center DO Kimmy De La Cruz Work Phone: [facility] Start: 09-28-2021 End: 09-28-2021 ambulatory Kimmy De La Cruz Facility:[facility] Start: 09-28-2021 End: 09-28-2021 ambulatory DO Kimmy De La Cruz Work Phone: [facility] Work Phone: Start: 09-28-2021 End: 09-28-2021 Discharged Recurring DO Kimmy De La Cruz Work Phone: [facility] Start: 09-28-2021 Registered Recurring DO Ruben Christiei Work Phone: [facility] Start: 09-03-2021 ambulatory [facility] Start: 01-14-2021 End: 01-14-2021 Patient encounter procedure [facility] Start: 01-08-2021 Non-patient / Non-visit [facility] [address] Start: 12-24-2020 End: 12-24-2020 Patient encounter procedure [facility] Start: 12-11-2020 Non-patient / Non-visit [facility] [address] Start: 12-10-2020 Patient encounter procedure [facility] Start: 08-17-2019 End: 08-20-2019 Patient encounter procedure [facility] Start: 08-17-2019 End: 08-19-2019 Subsequent hospital visit by physician Sanjana TABAR[facility] Comment on above: Acquired hypothyroid ism; Mixed hyperlipidemia Start: 08-06-2019 [facility] Start: 01-25-2019 [facility] Procedures Date Procedure Procedure Detail Performing [...] guidance [place] guided spin e [facility] Work Phone: Start: 12-24-2020 Fluoroscopic guidance FL guided spin e [facility] Work Phone: Start: 08-16-2020 Lipid panel Lipid screen [place], [place] Start: 11-06-2019 Influenza vaccination Flu vacc ine (Season Ended) [place] Start: 08-21-2019 End: 08-21-2019 Office Visit 08/21/2019 Office Visit Family Medicine Sanjana De La Cruz, DO [address] [facility] [place] [address] [place] [address] [phone] [facility] Start: 12-10-2018 Screening for malign ant neoplasm of colon Colon Cancer Screen FIT/FOBT [place] Start: 08-25-2018 Annual Wellness Visi t (AWV) Annual Wellness Visit (AWV) [place] Start: 12-05-1998 Screening for osteoporosis DEXA (modify frequency per FRAX score) [place] Start: 12-05-1993 Shingles Vaccine (1 of 2) Baltazar gles Vaccine (1 of 2) [place] Start: 12-05-1962 DTaP/Tdap/Td vaccine (1 - Tdap) DTaP/Tdap/Td vaccine (1 - Tdap) [place] Patient Education [facility] Phone: Patient referral [facility] Phone: Immunizations Immunization Date Immunization Notes Care Provider Fa cility 12-01-2017 influenza, high dose seasonal, preservative-free [facility] 06-02-2017 pneumococcal polysac charide vaccine, 23 valent [facility] 12-08-2016 Influenza Vaccine, unspecified formulation [facility] [place] 12-08-2016 influenza virus vacc ine, unspecified formulation [facility] [place] 12-09-2015 Influenza Vaccine, unspecified formulation [facility] [place] 12-09-2015 influenza virus vacc ine, unspecified formulation [facility] [place] 11-06-2014 Influenza Vaccine, unspecified formulation [facility] [place] 11-06-2014 influenza virus vacc ine, unspecified formulation [facility] [place] 11-19-2013 Influenza Vaccine, unspecified formulation [facility] [place] 11-19-2013 influenza virus vacc ine, unspecified formulation [facility] [place], [place] Payers Date Payer Category Payer Self-pay [id number] 2020 Medicaid [id number] 2017 Medicare [id number] 2017 Medicare [facility] MEDICARE AN THEM MEDIBLUE ESSENTIAL/PLUS xxxxxxxxxxxx 2017-Present [address] [address] [place] [address] xxxxxxxxxxxx [id number] 1959 Medicare [id number] 1943 Unknown [id number] 1943 Unknown [id number] 1943 Unknown [id number] 1943 Unknown [id number] 1943 Unknown [id number] 1943 Unknown [id number] 1943 Unknown [id number] Unknown [id number] Unknown [id number] Social History Date Type Detail Facility Start: [facility]06-[facility] [place] History of tobacco use Cigarette Smoker M [facility] Start: 08-06-2019 Cigarettes smoked current (pack per day) - Reported [place] Start: 08-06-2019 Alcohol intake Current drinke r of alcohol (finding) [facility] Start: 11-23-2018 History SDOH Alcohol Frequency 2 [facility] Start: 11-23-2018 History SDOH Alcohol Std Drinks 1 [facility] Sex Assigned At Not on file [place] Start: 12-24-2020 Former Smoker [facility] Phone: Start: 12-18-202012-24 [facility] Phone: Start: 12-18-202012-23 [facility] Phone: Start: 1945 Sex Assigned At Female T [facility] Phone: Start: 10-02-2021 Tobacco smoking stat us IAIS Ex-smoker (finding) [facility] Work Phone: Start: 10-02-2021 Yes [facility] Work Phone: Medical Equipment Procedure Code Equipment Code Equipment Original Text Equipment Identifier Dates Phacoemulsification of cataract with intraocular lens implant LENS [id number] FDA Start: 10-02-2021 Goals Date Patient Goal Desired Activity /State Functional Status Date Assessment Result Facility 10-02-2021 Functional status Ability to Fol low Directions Excellent [facility] Work Phone: 10-02-2021 Functional status Glasses [facility] Work Phone: 01-14-2021 Functional status Mobility - Ski n Risk Assessment Scale No Limitations [facility] Phone: 01-12-2021 Functional status Visual Assisti ve Devices Glasses [facility] Phone: 12-24-2020 Functional status Mobility - Ski n Risk Assessment Scale No Limitations [facility] Phone: 12-18-2020 Functional status Visual Assisti ve Devices Glasses [facility] Phone: Mental Status Date Assessment Result Facility 10-02-2021 Cognitive function Patient Behav ior Appropriate;Cooperative [facility] Work Phone: 10-02-2021 Cognitive function No [facility] Work Phone: 01-14-2021 Cognitive function Level Of Cons ciousness Awake;Alert;Appropriate;Follow s Commands [facility] Phone: 12-24-2020 Cognitive function Level Of Cons ciousness Awake;Alert;Appropriate;Follow s Commands [facility] Phone: Evaluation note Note Date & Type Note Facility Evaluation note No assessment information availa ble [facility] Phone: Hospital Discharge instructions Note Date & Type Note Facility Hospital Discharge instructions Additional Instructions NO LIFTING NO BENDING KEEP EYE SHIELD IN PLACE FOLLOW UP WITH DR HARTMAN TOMORROW AT 9:30AM TAKE ALL EYE DROPS TO OFFICE VISIT [facility] Work Phone: Summary Purpose Family History No Family History Records Found Relationship Condition Age at Onset Recorded Date/T victorino Not Specified Malignant neoplasm of prostate Unknown Relationship Condition Age at Onset Recorded Date/T victorino Unknown Family Anesthesia Reaction?No Unknown October 02, 2021 10:31am Advance Directives No Advanced Directives Records FoundDocuments on File Type Date Recorded Patient Administrative Processor Expl anation Advance Directives and Living Will Power of Web Pressman Advance Directive Response Recorded Date/ Time Advance Directives No December 24, 2020 9:04am Advance Directive Response Recorded Date/ Time Advance Directives No January 9:07am Advance Directive Response Recorded Date/ Time Advance Directives No October 02 10:31am Organ Donor No January 24 4:58pm Power of Web Pressman No October 02 10:31am Tissue Donor No January 24 019 4:58pm Assessments Diagnosis Acquired hypothyroidism Unspecified hypothyroidism Mixed hyperlipidemia Chief Complaint and Reason for Visit Chief Complaint SPS.MRIRES Chief Complaint INJECTFU Chief Complaint M48.02,R29.898,R20.2 CAT WITH IOL LEFT EYE (MA 09/24 DD) Additional Source Comments INFORMATION SOURCE (unrecogn ized section and content) DATE CREATED AUTHOR 08/07/2019 [facility] DATE CREATED AUTHOR AUTHOR'S ORGANIZ ATION 08/19/2019 [facility] DATE CREATED AUTHOR AUTHOR'S ORGANIZ ATION 09/04/2021 [facility] DATE CREATED AUTHOR AUTHOR'S ORGANIZ ATION 09/04/2021 [facility] DATE CREATED AUTHOR AUTHOR'S ORGANIZ ATION 2021 [facility] ([place]) DATE CREATED AUTHOR AUTHOR'S ORGANIZ ATION 03/02/2022 [facility] DATE CREATED AUTHOR AUTHOR'S ORGANIZ ATION 08/26/2023 [facility] Goals (unrecognized section and content) Goals may [...] BE BASED ON THE PRIMARY CLINICAL RECORDS. [employer] provides no warranty or guarantee of the accuracy or completeness of information in this document.
== END 2023-10-17 10:12 | disposition home or self-care (01) ==
LOC: EC 10:11
PROVIDERS: PCP Family Medicine; Visit Provider Orthopaedic Surgery
DX: S52.124D Nondisplaced fracture of head of right radius, subsequent encounter for closed fracture with routine healing (principal)
CPT/HCPCS: 73080

== ENCOUNTER 2024-01-12 09:39 | Outpatient (OUT) | payer MEDICARE, SELFPAY ==
--- OUTSIDE RECORDS SUMMARY | 2024-01-12 09:58 | XMS_ITS | CCD ---
Author Organization [facility] Care Team Providers Care [employer] Attendant Name Role Phone SHANNEN SUE Primary Care Unavailable BONETTI, SUE Primary Care Unavailable BONETTI, SUE Primary Care Unavailable BONETTI, SUE Referring Unavailable BONETTI, SUE Primary Care Unavailable Bonettgianluca, Sue Primary Care Provider BONETTGianluca, SUE Primary Care Unavailable Bonettgianluca, DO Kimmy Primary Care Provider DO Kimmy De La Cruz Attending Provider MD Andrez Hartman Attending Provider [phone] Kimmy De La Cruz Attending Unavailable Boneyasmeen, Kimmy Primary Care Unavailable Andrez Hartman Attending Unavailable Bonetti, Kimmy Primary Care Unavailable PHIL ORBLEDO Consulting Unavailable PHIL ROBLEDO Admitting Unavailable PHIL ROBLEDO Attending Unavailable WANDA HONG Consulting Unavailable TIMBO SHAH Admitting Unavailable TIMBO SHAH Attending Unavailable PRISCILLA MARSHALL Primary Care Unavailable Prabhu HAMMOND, Robert Guadalupe Attending Unavailab Timbo Kim Jr Attending Unavailable Elliott Jacobson Referring Unavailable Allergies Allergy Classification Reported Allergen(s) Allergy Type Date of Onset Reaction(s) Facility (1 source) cefdinir Drug Allergy 11-16-2018 [facility], [place] Medications Current Medications Medication Drug Class(es) Dates [...] Classification Problem Date Documented Da te Episodic/Chronic Cataract (1 source) Age-related nuclear cataract, right eye; Translations: [Cataract, Nuclear Sclerosis OD] Onset: 11-25-2023 Chronic Disorders of lipid metabolism (1 source) Mixed hyperlipidemia; Translations: [Mixed hyperlipidemia] Chronic Essential hypertension (1 source) Hypertensive disorder; Translations: [Hypertension] Onset: 11-23-2018 11-23-2018 Chronic Osteoarthritis (1 source) Osteoarthritis; Translations: [Osteoarthritis] Onset: 11-23-2018 11-23-2018 Chronic Other upper respiratory infections (1 source) Acute upper respiratory infection, unspecified; Translations: [ACUTE UP RESPIRATORY INFECTION UNS] Onset: 03-02-2022 Episodic Retinal detachments; defects; vascular occlusion; and retinopathy (4 sources) Puckering of macula, left eye; Translations: [Puckering of macula, bilateral] Onset: 08-25-2023 Chronic Thyroid disorders (1 source) [...] spec) Not detected Normal NOT DETECTED [facility] Comment on above: Result Comment: This test is not yet approved or cleared by the [place] FDA. When there are no FDA-approved or cleared tests available, and other criteria are met, FDA can make tests available under an emergency access mechanism called an Emergency Use Authorization (EUA). The EUA for this test is supported by the Water Tender of Health and Human Service's (HHS's) declaration [...] SARS-CoV-2. Performed By: #### C VDTB #### [facility] [address] [place] [address] Dr. Fabrice Garza INFLUENZA A AND B [facility] 02-28 [facility] SEE BELOW Normal [facility] Comment on above: Result Comment: Nega tive for Flu A protein angiten. Infection due to Flu A cannot be ruled out. Flu A angiten in the sample may be below the detection limit of the test. Performed By: #### I NFLUAB #### [facility] [address] [place] [address] Dr. Fabrice Garza [facility] SEE BELOW Normal [facility] Comment on above: Result Comment: Nega tive for Flu B protein antigen. Infection due to Flu B cannot be ruled out. Flu B antigen in the sample may be below the detection limit of the test. Performed By: #### I NFLUAB #### [facility] [address] [place] [address] Dr. Fabrice Garza INFLUENZA A AG Negative Normal NEGATIVE SEE COMMENT [facility] Comment on above: Performed By: #### I NFLUAB #### [facility] [address] [place] [address] Dr. Fabrice Garza INFLUENZA B AG Negative Normal NEGATIVE SEE COMMENT [facility] Comment on above: Performed By: #### I NFLUAB #### [facility] [address] [place] [address] Dr. Fabrice Garza INTERNAL CONTROLS Within Normal Limits Normal Wi thin Normal Limits [facility] Comment on above: Performed By: #### I NFLUAB #### [facility] [address] [place] [address] Dr. Fabrice Garza XR CHEST 1 Von [...] WANDA HONG Date: 2022-02-28 16:37 Normal [facility] XR CERVICAL SPINE (2-3 VIEWS )on 09-04-2021 [...] Kranthi Ribeiro MD 09/04/21 Final result Normal [facility] CBC With Platelet and Differ entialon 09-03-2021 Abs Imm Granulocytes 0.01 E9/L Normal [facility] Absolute Basophils 0.04 E9/L Normal 0.00-0.20 [facility] Absolute Eosinophils 0.12 E9/L Normal 0.05-0.50 [facility] Absolute Lymphocytes 0.90 E9/L Low 1.50-4.00 [facility] Absolute Monocytes 0.37 E9/L Normal 0.10-0.95 [facility] Absolute Neutrophils 2.34 E9/L Normal 1.80-7.30 [facility] Basophils/100 WBC (Bld) 1.1 % Normal 0.0-2.0 [facility] Eosinophils/100 WBC (Bld) 3.2 % Normal 0.0-6.0 [facility] Hematocrit (Bld) [Volume fraction] 41.7 % Normal 34.0-48.0 [facility] Hemoglobin (Bld) [Mass/Vol] 12.8 g/dL Normal 11.5-15.5 [facility] Imm Granulocytes 0.3 % Normal 0.0-5.0 [facility] Lymphocytes/100 WBC (Bld) 23.8 % Normal 20.0-42.0 [facility] MCH (RBC) [Entitic mass] 30.5 pg Normal 26.0-35.0 [facility] MCHC 30.7 % Low 32.0-34.5 [facility] MCV (RBC) [Entitic vol] 99.5 fL Normal 80.0-99.9 [facility] Monocytes/100 WBC (Bld) 9.8 % Normal 2.0-12.0 [facility] Neutrophils/100 WBC (Bld) 61.8 % Normal 43.0-80.0 [facility] Platelet Count 232 E9/L Normal 130-450 [facility] Platelet mean volume (Bld) [Entitic vol] 12.3 fL High 7.0-12.0 [facility] RBC 4.19 E12/L Normal 3.50-5.50 [facility] RDW 12.6 fL Normal 11.5-15.0 [facility] WBC 3.8 E9/L Low 4.5-11.5 [facility] Comprehensive Metabolic Pane rosie 09-03-2021 Albumin [Mass/Vol] 4.8 g/dL Normal 3.5-5.2 [facility] ALP [Catalytic activity/Vol] 66 U/L Normal 35-104 [facility] ALT [Catalytic activity/Vol] 11 U/L Normal 0-32 [facility] Anion gap [Moles/Vol] 15 mmol/L Normal 7-16 [facility] AST [Catalytic activity/Vol] 23 U/L Normal 0-31 [facility] Bilirubin [Mass/Vol] 0.3 mg/dL Normal 0.0-1.2 [facility] Calcium [Mass/Vol] 9.8 mg/dL Normal 8.6-10.2 [facility] Chloride [Moles/Vol] 102 mmol/L Normal 98-107 [facility] CO2 [Moles/Vol] 25 mmol/L Normal 22-29 [facility] Creatinine [Mass/Vol] 0.8 mg/dL Normal 0.5-1.0 [facility] GFR Calculated >60 Normal >=60 [facility] Comment on above: Result Comment: Poultry Farmer vika Kidney Disease: less than 60 ml/min/1.73 sq.m. Kidney Failure: less than 15 ml/min/1.73 sq.m. Results valid for patients 18 years and older. GFR/1.73 sq M.predicted among blacks MDRD (S/P/Bld) [Vol rate/Area] mL/min/{1.73_m2} Normal [facility] Glucose [Mass/Vol] 88 mg/dL Normal 74-99 [facility] Potassium [Moles/Vol] 4.3 mmol/L Normal 3.5-5.0 [facility] Protein [Mass/Vol] 7.2 g/dL Normal 6.4-8.3 [facility] Sodium [Moles/Vol] 142 mmol/L Normal 132-146 [facility] Urea nitrogen [Mass/Vol] 12 mg/dL Normal 6-23 [facility] Lipid Panelon 09-03-2021 Cholesterol [Mass/Vol] 210 mg/dL High 0-199 [facility] Cholesterol in HDL [Mass/Vol] 95 mg/dL Normal >40 [facility] Cholesterol in LDL [Mass/Vol] 98 mg/dL Normal 0-99 [facility] Triglyceride [Mass/Vol] 86 mg/dL Normal 0-149 [facility] VLDL Cholesterol (Calculated) 17 mg/dL Normal [facility] TSH w/out Reflexon TSH w/out Reflex 0.618 uIU/mL Normal 0.270-4.200 [facility] Thyroxine Freeon 09-03-2021 Thyroxine Free 2.12 ng/dL High 0.93-1.70 [facility] UR Microalbumin Randomon UR Microalbumin Random <12.0 Normal Not Established [facility] XR THORACIC SPINE (3 VIEWS)o [...] Wanda Akers MD 09/03/21 Final result Normal [facility] Thyroxine Freeon 08-18-2019 Thyroxine Free 1.85 ng/dL High 0.93-1.70 [facility] CBC Auto Differentialon 08-05 Basophils (Bld) [#/Vol] 0.04 10*3/uL [place] Basophils/100 WBC (Bld) 1.0 % 0 - 2 % [place] Eosinophils (Bld) [#/Vol] 0.16 10*3/uL [place] Eosinophils/100 WBC (Bld) 4.1 % 0 - 6 % [place] Erythrocyte distribution width (RBC) [Ratio] 12.3 fL 11.5 - 15 fL [place] Hematocrit (Bld) [Volume fraction] 44.4 % 34 - 48 % [place] Hemoglobin (Bld) [Mass/Vol] 14.2 g/dL 11.5 - 15.5 g/dL [place] Immature granulocytes (Bld) [#/Vol] 0.01 10*3/uL E9/L [place] Immature granulocytes/100 WBC (Bld) 0.3 % 0 - 5 % [place] Interpretation and review of laboratory results Abnormal [place] Lymphocytes (Bld) [#/Vol] 1.04 10*3/uL Low [place] Lymphocytes/100 WBC (Bld) 26.5 % 20 - 42 % [place] MCH (RBC) [Entitic mass] 31.8 pg 26 - 35 pg [place] MCHC (RBC) [Mass/Vol] 32.0 % 32 - 34.5 % [place] MCV (RBC) [Entitic vol] 99.3 fL 80 - 99.9 fL [place] Monocytes (Bld) [#/Vol] 0.35 10*3/uL [place] Monocytes/100 WBC (Bld) 8.9 % 2 - 12 % [place] Neutrophils Absolute 2.32 [place] Neutrophils/100 WBC (Bld) 59.2 % 43 - 80 % [place] Platelet mean volume (Bld) [Entitic vol] 12.5 fL High 7 - 12 fL [place] Platelets (Bld) [#/Vol] 166 10*3/uL [place] RBC (Bld) [#/Vol] 4.47 10*6/uL [place] WBC (Bld) [#/Vol] 3.9 10*3/uL Low [place] CBC With Platelet and Differ entialon 08-17-2019 Abs Imm Granulocytes 0.01 E9/L Normal [facility] Basophils (Bld) [#/Vol] 0.04 E9/L Normal 0.00-0.20 [facility] Basophils/100 WBC (Bld) 1.0 % Normal 0.0-2.0 [facility] Eosinophils (Bld) [#/Vol] 0.16 E9/L Normal 0.05-0.50 [facility] Eosinophils/100 WBC (Bld) 4.1 % Normal 0.0-6.0 [facility] Erythrocyte distribution width (RBC) [Ratio] 12.3 fL Normal 11.5-15.0 [facility] Hematocrit (Bld) [Volume fraction] 44.4 % Normal 34.0-48.0 [facility] Hemoglobin (Bld) [Mass/Vol] 14.2 g/dL Normal 11.5-15.5 [facility] Imm Granulocytes 0.3 % Normal 0.0-5.0 [facility] Lymphocytes (Bld) [#/Vol] 1.04 E9/L Low 1.50-4.00 [facility] Lymphocytes/100 WBC (Bld) 26.5 % Normal 20.0-42.0 [facility] MCH (RBC) [Entitic mass] 31.8 pg Normal 26.0-35.0 [facility] MCHC (RBC) [Mass/Vol] 32.0 % Normal 32.0-34.5 [facility] MCV (RBC) [Entitic vol] 99.3 fL Normal 80.0-99.9 [facility] Monocytes (Bld) [#/Vol] 0.35 E9/L Normal 0.10-0.95 [facility] Monocytes/100 WBC (Bld) 8.9 % Normal 2.0-12.0 [facility] Neutrophils (Bld) [#/Vol] 2.32 E9/L Normal 1.80-7.30 [facility] Neutrophils/100 WBC (Bld) 59.2 % Normal 43.0-80.0 [facility] Platelet mean volume (Bld) [Entitic vol] 12.5 fL High 7.0-12.0 [facility] Platelets (Bld) [#/Vol] 166 E9/L Normal 130-450 [facility] RBC (Bld) [#/Vol] 4.47 E12/L Normal 3.50-5.50 [facility] WBC (Bld) [#/Vol] 3.9 E9/L Low 4.5-11.5 [facility] Comprehensive Metabolic Pane rosie 08-17-2019 Albumin [Mass/Vol] 4.4 g/dL Normal 3.5-5.2 [facility] ALP [Catalytic activity/Vol] 69 U/L Normal 35-104 [facility] ALT [Catalytic activity/Vol] 9 U/L Normal 0-32 [facility] Anion gap [Moles/Vol] 12 mmol/L Normal 7-16 [facility] AST [Catalytic activity/Vol] 20 U/L Normal 0-31 [facility] Bilirubin [Mass/Vol] 0.6 mg/dL Normal 0.0-1.2 [facility] Calcium [Mass/Vol] 10.2 mg/dL Normal 8.6-10.2 [facility] Chloride [Moles/Vol] 100 mmol/L Normal 98-107 [facility] CO2 [Moles/Vol] 29 mmol/L Normal 22-29 [facility] Creatinine [Mass/Vol] 0.8 mg/dL Normal 0.5-1.0 [facility] GFR/1.73 sq M predicted among blacks MDRD (S/P/Bld) [Vol rate/Area] mL/min/{1.73_m2} Normal [facility] GFR/1.73 sq M predicted among non-blacks MDRD (S/P/Bld) [Vol rate/Area] mL/min/{1.73_m2} Normal >=60 [facility] Comment on above: Result Comment: Poultry Farmer vika Kidney Disease: less than 60 ml/min/1.73 sq.m. Kidney Failure: less than 15 ml/min/1.73 sq.m. Results valid for patients 18 years and older. Glucose [Mass/Vol] 92 mg/dL Normal 74-99 [facility] Potassium [Moles/Vol] 5.1 mmol/L High 3.5-5.0 [facility] Protein [Mass/Vol] 7.1 g/dL Normal 6.4-8.3 [facility] Sodium [Moles/Vol] 141 mmol/L Normal 132-146 [facility] Urea nitrogen [Mass/Vol] 11 mg/dL Normal 8-23 [facility] Albumin [Mass/Vol] 4.4 g/dL 3.5 - 5.2 g/dL [facility], [place] ALP [Catalytic activity/Vol] 69 U/L 35 - 104 U/L [facility], [place] ALT [Catalytic activity/Vol] 9 U/L 0 - 32 U/L [place] Anion gap [Moles/Vol] 12 mmol/L 7 - 16 mmol/L [place] AST [Catalytic activity/Vol] 20 U/L 0 - 31 U/L [place] Bilirubin Ql (U) 0.6 mg/dL 0 - 1.2 mg/dL [place] Calcium [Mass/Vol] 10.2 mg/dL 8.6 - 10.2 mg/dL [place] Chloride [Moles/Vol] 100 mmol/L 98 - 107 mmol/L [place] CO2 [Moles/Vol] 29 mmol/L 22 - 29 mmol/L [place] Creatinine [Mass/Vol] 0.8 mg/dL 0.5 - 1 mg/dL [place] GFR >60 [place] GFR Non- >60 >=60 mL/min/1.73 [place] Comment on above: Chronic Kidney Disea se: less than 60 ml/min/1.73 sq.m. Kidney Failure: less than 15 ml/min/1.73 sq.m. Results valid for patients 18 years and older. Glucose [Mass/Vol] 92 mg/dL 74 - 99 mg/dL [place], [place] Interpretation and review of laboratory results Abnormal [place] Potassium [Moles/Vol] 5.1 mmol/L High 3.5 - 5 mmol/L [place] Protein [Mass/Vol] 7.1 g/dL 6.4 - 8.3 g/dL [place] Sodium [Moles/Vol] 141 mmol/L 132 - 146 mmol/L [place] Urea nitrogen [Mass/Vol] 11 mg/dL 8 - 23 mg/dL [place] Lipid Panelon 08-17-2019 Cholesterol [Mass/Vol] 192 mg/dL Normal 0-199 [facility] Cholesterol in HDL [Mass/Vol] 84 mg/dL Normal >40 [facility] Cholesterol in LDL [Mass/Vol] 93 mg/dL Normal 0-99 [facility] Triglyceride [Mass/Vol] 73 mg/dL Normal 0-149 [facility] VLDL Cholesterol (Calculated) 15 mg/dL Normal [facility] Cholesterol [Mass/Vol] 192 mg/dL 0 - 199 mg/dL [place] Cholesterol in HDL [Mass/Vol] 84 mg/dL >40 [place] Cholesterol in LDL [Mass/Vol] 93 mg/dL 0 - 99 mg/dL [place] Triglyceride [Mass/Vol] 73 mg/dL 0 - 149 mg/dL [place] VLDL Cholesterol Calculated 15 mg/dL [place] T4, Freeon 08-17-2019 Free T4 [Mass/Vol] 1.85 ng/dL High 0.93 - 1.7 ng/dL [place] Interpretation and review of laboratory results Abnormal [place] TSH w/out Reflexon 0 TSH Qn 2.150 uIU/mL Normal 0.270-4.200 [facility] TSH without Reflexon 020 TSH Qn 2.150 m[IU]/L [facility] [place] [place] XR KNEE RIGHT (3 VIEWS)on XR KNEE RIGHT (3 VIEWS) EXAMINATION: THREE XRAY VIEWS OF THE RIGHT KNEE 08/06/2019 4:58 pm COMPARISON: None. HISTORY: ORDERING SYSTEM PROVIDED HISTORY: Right hip pain Pain FINDINGS: There is mild infrapatellar soft tissue swelling. [id number] patellofemoral joint space narrowing. There is a [...] Maury Ojeda MD 08/07/19 Final result Normal [facility] XR HIP RIGHT (2-3 VIEWS)on 0 [...] Alex Frias MD 08/06/19 Final result Normal [facility] XR HIP 2-3 VW W PELVIS [...] Kranthi Solis DO 01/25/19 Final result Normal [facility] XR LUMBAR SPINE (2-3 VIEWS)o n [...] Kranthi Solis DO 01/25/19 Final result Normal [facility] Vital Signs Date Time Vital Sign Value Performing Clinician Geraldo smith 10-02-2021 13:15-0400 Diastolic blood pressure 74 mm[Hg] DO Kimmy Bonetti Work Phone: [facility] Work Phone: 10-02-2021 13:15-0400 Heart rate 76 /min DO Kimmy Bonetti Work Phone: [facility] Work Phone: 10-02-2021 13:15-0400 Respiratory rate 18 /min DO Kimmy Bonetti Work Phone: [facility] Work Phone: 10-02-2021 13:15-0400 SaO2% (BldA) [Mass fraction] 97 % DO Kimmy Bonetti Work Phone: [facility] Work Phone: 10-02-2021 13:15-0400 Systolic blood pressure 133 mm[Hg] DO Kimmy De La Cruz Work Phone: [facility] Work Phone: 10-02-2021 12:53-0400 Body temperature 97.3 [degF] DO Kimmy De La Cruz Work Phone: [facility] Work Phone: 10-02-2021 10:18-0400 Body height 160.02 cm DO Kimmy De La Cruz Work Phone: [facility] Work Phone: 10-02-2021 10:18-0400 Body mass index (BMI) [Ratio] 19.1 kg/m2 DO Kimmy De La Cruz Work Phone: [facility] Work Phone: 10-02-2021 10:18-0400 Body weight 48.99 kg DO Kimmy De La Cruz Work Phone: [facility] Work Phone: 01-14-2021 09:45-0500 Body temperature 97.8 [degF] [facility] Phone: 01-14-2021 09:45-0500 Diastolic blood pressure 74 mm[Hg] [facility] Phone: 01-14-2021 09:45-0500 Heart rate 60 /min [facility] Phone: 01-14-2021 09:45-0500 Respiratory rate 16 /min [facility] Phone: 01-14-2021 09:45-0500 SaO2% (BldA) [Mass fraction] 99 % [facility] Phone: 01-14-2021 09:45-0500 Systolic blood pressure 160 mm[Hg] [facility] Phone: 01-12-2021 17:29-0500 Body height 160.02 cm [facility] Phone: 01-12-2021 17:29-0500 Body mass index (BMI) [Ratio] 19.5 kg/m2 [facility] Phone: 01-12-2021 17:29-0500 Body weight 49.9 kg [facility] Phone: 12-24-2020 10:00-0400 Body temperature 97 [degF] [facility] Phone: 12-24-2020 10:00-0400 Diastolic blood pressure 66 mm[Hg] [facility] Phone: 12-24-2020 10:00-0400 Heart rate 71 /min [facility] Phone: 12-24-2020 10:00-0400 Respiratory rate 16 /min [facility] Phone: 12-24-2020 10:00-0400 SaO2% (BldA) [Mass fraction] 97 % [facility] Phone: 12-24-2020 10:00-0400 Systolic blood pressure 158 mm[Hg] [facility] Phone: 12-18-2020 12:08-0400 Body height 160.02 cm [facility] Phone: 12-18-2020 12:08-0400 Body mass index (BMI) [Ratio] 19.5 kg/m2 [facility] Phone: 12-18-2020 12:08-0400 Body weight 49.9 kg [facility] Phone: Encounters Encounter Date Encounter Type Care Provider Facility Start: 12-21-2023 End: 12-21-2023 ambulatory Robert Pelletier MD Facility:[facility] Start: 11-25-2023 Office outpatient vi sit 15 minutes Timbo Shah Jr [facility] Start: 11-25-2023 ambulatory Timbo Shah Jr [facility] Start: 08-25-2023 End: 08-25-2023 ambulatory TIMBO SHAH [facility] Start: 02-28-2022 End: 02-28-2022 ambulatory PHIL ROBLEDO Facility: Start: 10-02-2021 End: 10-02-2021 ambulatory Andrez Hartman Facility:[facility] Start: 10-02-2021 End: 10-02-2021 Admission to same day surgery center DO Kimmy Boneyasmeen Work Phone: [facility] Start: 09-28-2021 End: 09-28-2021 ambulatory Kimmy De La Cruz Facility:[facility] Start: 09-28-2021 End: 09-28-2021 ambulatory DO Kimmy Boneyasmeen Work Phone: [facility] Work Phone: Start: 09-28-2021 End: 09-28-2021 Discharged Recurring DO Kimmy Palaciosmariegianluca Work Phone: [facility] Start: 09-28-2021 Registered Recurring DO AnnMar kim Bonetti Work Phone: [facility] Start: 09-03-2021 ambulatory SANJANA NELSONI [facility] Start: 01-14-2021 End: 01-14-2021 Patient encounter procedure [facility] Start: 01-08-2021 Non-patient / Non-visit [facility] [address] Start: 12-24-2020 End: 12-24-2020 Patient encounter procedure [facility] Start: 12-11-2020 Non-patient / Non-visit [facility] [address] Start: 12-10-[address] [facility] Start: 08-17-2019 End: 08-20-2019 Patient encounter procedure SANJANA DE LA CRUZ [facility] Start: 08-17-2019 End: 08-19-2019 Subsequent hospital visit by physician Sanjana TABAR[facility] Comment on above: Acquired hypothyroid ism; Mixed hyperlipidemia Start: 08-06-2019 Patient encounter procedure SANJANA PEOPLES FELIPEYASMEEN [facility] Start: 01-25-2019 Patient encounter procedure SANJANA DE LA CRUZ [facility] Procedures Date Procedure Procedure Detail Performing Clinician Start: 11-25-2023 Computerized ophthalmic imaging retina Timbo Shah Start: 10-02-2021 Phacoemulsification of cataract with intraocular [...] CRUZ Start: 08-17-2019 Assay of free thyroxine Sanjana Nelson i Work Phone: Start: 08-17-2019 Assay of [...] 01-14-2021 Fluoroscopic guidance [place] guided spin e [facility] Phone: Start: 12-24-2020 Fluoroscopic guidance [place] guided spin e [facility] Phone: Start: 08-16-2020 Lipid panel Lipid screen [place], [place] Start: 11-06-2019 Influenza vaccination Flu vacc ine (Season Ended) [place], [place] Start: 08-21-2019 End: 08-21-2019 Office Visit 08/21/2019 Office Visit Family Medicine Sanjana De La Cruz DO [address] [place] [address] [phone] [facility] Start: 12-10-2018 Screening for malign ant neoplasm of colon Colon Cancer Screen FIT/FOBT [place] Start: 08-25-2018 Annual Wellness Visi t (AWV) Annual Wellness Visit (AWV) [place] Start: 12-05-1998 Screening for osteoporosis DEXA (modify frequency per FRAX score) [place] Start: 12-05-1993 Shingles Vaccine (1 of 2) Baltazar gles Vaccine (1 of 2) [place] Start: 12-05-1962 DTaP/Tdap/Td vaccine (1 - Tdap) DTaP/Tdap/Td vaccine (1 - Tdap) [place] Patient Education [facility] Phone: Patient referral [facility] Phone: Immunizations Immunization Date Immunization Notes Care Provider Carley marcano 12-01-2017 influenza, high dose seasonal, preservative-free [place], [place] 06-02-2017 pneumococcal polysac charide vaccine, 23 valent [place], [place] 12-08-2016 Influenza Vaccine, unspecified formulation [facility] , [place] 12-08-2016 influenza virus vacc ine, unspecified formulation [facility] [place] 12-09-2015 Influenza Vaccine, unspecified formulation [facility] [place] 12-09-2015 influenza virus vacc ine, unspecified formulation [facility] [place] 11-06-2014 Influenza Vaccine, unspecified formulation [facility] [place] 11-06-2014 influenza virus vacc ine, unspecified formulation [facility] [place] 11-19-2013 Influenza Vaccine, unspecified formulation [facility] [place] 11-19-2013 influenza virus vacc ine, unspecified formulation [facility] [place] Payers Date Payer Category Payer Private Health Insurance 2021 Self-pay [id number] 2020 Medicaid [id number] 2017 Medicare [id number] 2017 Medicare BCBS MEDICARE AN THEM MEDIBLUE ESSENTIAL/PLUS xxxxxxxxxxxx 2017-Present [address] [address] [place] [address] xxxxxxxxxxxx [id number] 1959 Medicare [id number] 1945 Unknown [id number] .204 1945 Unknown [id number] 2.16840.1.316337.3.579.2 .204 1945 Unknown [id number] 2.16840.1.458394.3.579.2 .204 1945 Unknown [id number] 2.16840.1.794984.3.579.2 .204 1945 Unknown [id number] 2.16.840.1.878166.3.579.2 .204 1943 Unknown [id number] 2.16.840.1.484281.3.579.2 .593 1945 Unknown [id number] 2.16.840.1.996796.3.579.2 .175 1945 Unknown [id number] 2.16.840.1.353669.3.579.2 .196 1945 Unknown [id number] 2.16.840.1.986576.3.579.2 .1347 Unknown [id number] 2.16.840.1.219820.3.579.2 .921 Unknown [id number] 2.16.840.1.240360.3.579.2 .921 Social History Date Type Detail Facility Start: 08-06-2019 Tobacco smoking stat [facility] Current every day smoker [place], [place] History of tobacco use Cigarette Smoker M [place], [place] Start: 08-06-2019 Cigarettes smoked current (pack per day) - Reported [place] Start: 08-06-2019 Alcohol intake Current drinke r of alcohol (finding) [place] Start: 11-23-2018 History SDOH Alcohol Frequency 2 [place] Start: 11-23-2018 History SDOH Alcohol Std Drinks 1 [place] Sex Assigned At Not on file [place] Start: 12-24-2020 Former Smoker [facility] Phone: Start: 12-18-202012-24 [facility] Phone: Start: 12-18-202012-23 [facility] Phone: Start: 1945 Sex Assigned At Female T [facility] Phone: Start: 10-02-2021 [facility] Work Phone: Start: 10-02-2021 Yes [facility] Work Phone: Medical Equipment Procedure Code Equipment Code Equipment Original Text Equipment Identifier Dates Phacoemulsification of cataract with intraocular lens implant LENS [id number] FDA Start: 10-02-2021 Goals Date Patient Goal Desired Activity /State Functional Status Date Assessment Result Facility 10-02-2021 Functional status Ability to Fol low Directions Excellent [facility] Work Phone: 10-02-2021 Functional status Glasses [facility] Work Phone: 01-14-2021 Functional status Mobility - Ski n Risk Assessment Scale No Limitations [facility] Phone: 01-12-2021 Functional status Visual Assisti ve Devices Glasses [facility] Phone: 12-24-2020 Functional status Mobility - Ski n Risk Assessment Scale No Limitations [facility] Phone: 12-18-2020 Functional status Visual Assisti ve Devices Glasses [facility] Phone: Mental Status Date Assessment Result Facility 10-02-2021 Cognitive function Patient Behav ior Appropriate;Cooperative [facility] Work Phone: 10-02-2021 Cognitive function No [facility] Work Phone: 01-14-2021 Cognitive function Level Of Cons ciousness Awake;Alert;Appropriate;Follow s Commands [facility] Phone: 12-24-2020 Cognitive function Level Of Cons ciousness Awake;Alert;Appropriate;Follow s Commands [facility] Phone: Evaluation note Note Date & Type Note Facility Evaluation note No assessment information availa ble [facility] Phone: Hospital Discharge instructions Note Date & Type Note Facility Hospital Discharge instructions Additional Instructions NO LIFTING NO BENDING KEEP EYE SHIELD IN PLACE FOLLOW UP WITH DR HARTMAN TOMORROW AT 9:30AM TAKE ALL EYE DROPS TO OFFICE VISIT [facility] Work Phone: Summary Purpose Family History No Family History Records Found Relationship Condition Age at Onset Recorded Date/T victorino Not Specified Malignant neoplasm of prostate Unknown Relationship Condition Age at Onset Recorded Date/T victorino Unknown Family Anesthesia Reaction?No Unknown October 02, 2021 10:31am Advance Directives No Advanced Directives Records FoundDocuments on File Type Date Recorded 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 Advance Directives and Living Will Power of Behavioral Assistant Advance Directive Response Recorded Date/ Time Advance Directives No December 24, 2020 9:04am Advance Directive Response Recorded Date/ Time Advance Directives No January 9:07am Advance Directive Response Recorded Date/ Time Advance Directives No October 02 10:31am Organ Donor No January 24, 2 019 4:58pm Power of Behavioral Assistant No October 02 10:31am Tissue Donor No January 24, 2 019 4:58pm Assessments Diagnosis Acquired hypothyroidism Unspecified hypothyroidism Mixed hyperlipidemia Chief Complaint and Reason for Visit Chief Complaint SPS.MRIRES Chief Complaint INJECTFU Chief Complaint M48.02,R29.898,R20.2 CAT WITH IOL LEFT EYE ([place] 09/24 DD) Additional Source Comments INFORMATION SOURCE (unrecogn ized section and content) DATE CREATED AUTHOR 08/07/2019 [facility] DATE CREATED AUTHOR AUTHOR'S ORGANIZ ATION 08/19/2019 [facility] DATE CREATED AUTHOR AUTHOR'S ORGANIZ ATION 09/04/2021 [facility] DATE CREATED AUTHOR AUTHOR'S ORGANIZ ATION 09/04/2021 [facility] DATE CREATED AUTHOR AUTHOR'S ORGANIZ ATION 2021 [facility] ([place]) DATE CREATED AUTHOR AUTHOR'S ORGANIZ ATION 03/02/2022 [facility] DATE CREATED AUTHOR AUTHOR'S ORGANIZ ATION 08/26/2023 [facility] DATE CREATED AUTHOR AUTHOR'S ORGANIZ ATION 12/24/2023 [facility] DATE CREATED AUTHOR AUTHOR'S ORGANIZ ATION 12/30/2023 [facility] Goals (unrecognized section and content) Goals may [...] BE BASED ON THE PRIMARY CLINICAL RECORDS. [facility] provides no warranty or guarantee of the accuracy or completeness of information in this document.
[2024-01-12 10:08] LABS: Basophils Absolute Auto 0.1 10^3/uL (0.0-0.1); Basophils Percent Auto 1.1 % (0.2-2.0); Eosinophils Absolute Auto 0.2 10^3/uL (0.0-0.7); Eosinophils Percent Auto 3.9 % (0.9-7.0); Hematocrit 40.4 % (36.0-48.0); Hemoglobin 12.8 g/dL (12.0-16.0); Immature Granulocytes Abs Auto 0.01 10^3/uL (0.00-0.03); Immature Granulocytes Pct Auto 0.2 % (0.0-0.5); Mean Corpuscular HGB Conc 31.7 g/dL (29.9-35.2); Mean Corpuscular Hemoglobin 30.7 pg (26.7-34.0); Mean Corpuscular Volume 96.9 fL (81.0-99.0); Mean Platelet Volume 11.7 fL (9.5-13.5); Monocytes Absolute Auto 0.4 10^3/uL (0.3-0.8); Monocytes Percent Auto 9.8 % (1.7-12.0); Neutrophils Absolute Auto 2.8 10^3/uL (1.4-6.5); Platelet Count 216 10^3/uL (150-450); Red Blood Count 4.17 10^6/uL (4.20-5.40); Red Cell Distribution Width 12.1 % (11.0-15.0); White Blood Count 4.4 10^3/uL (4.0-11.0)
[2024-01-12 10:27] LABS: Alanine Aminotransferase 22 U/L (14-59); Albumin Globulin Ratio 1.2; Albumin Level 3.7 g/dL (3.4-5.0); Alkaline Phosphatase 81 U/L (46-116); Anion Gap 9.8; Aspartate Amino Transferase 19 U/L (15-37); BUN Creatinine Ratio 15.8; Bilirubin Total 0.6 mg/dL (0.2-1.0); Carbon Dioxide 32.4 mmol/L (21.0-32.0); Chloride 105 mmol/L (98-107); Chol HDL Ratio 1.9; Cholesterol 154 mg/dL (<=200); Estimated GFR (African America >60 (>=60 mL/min/1.73m^2); Estimated GFR (Non-African Ame 53 (>=60 mL/min/1.73m^2); Free T3 1.87 pg/mL (2.18-3.98); Glucose 106 mg/dL (74-106); HDL Cholesterol 83 mg/dL (40-60); Potassium 4.2 mmol/L (3.5-5.1); Sodium 143 mmol/L (136-145); Thyroid Stimulating Hormone 0.843 uIU/mL (0.358-3.740); Total Protein 6.7 g/dL (6.4-8.2); Triglycerides 46 mg/dL (<=150); VLDL CHOLESTEROL 9.2 mg/dL
[2024-01-12 11:31] LABS: Estimated Average Glucose 105 mg/dL; Glycohemoglobin A1C 5.3 % (4.5-6.2)
== END 2024-01-12 09:40 | disposition home or self-care (01) ==
LOC: LAB 09:41
PROVIDERS: PCP Family Medicine; Visit Provider Family Medicine
DX: R73.09 Other abnormal glucose (principal); I10 Essential (primary) hypertension; E03.9 Hypothyroidism, unspecified; E78.5 Hyperlipidemia, unspecified; D64.9 Anemia, unspecified
CPT/HCPCS: 36415; 80053; 80061; 83036; 83540; 84436; 84443; 84481; 85025

== ENCOUNTER 2024-06-28 15:23 | Outpatient (OUT) | payer MEDICARE, SELFPAY ==
[2024-06-28 15:46] LABS: Basophils Percent Auto 0.8 % (0.2-2.0); Eosinophils Absolute Auto 0.1 10^3/uL (0.0-0.7); Eosinophils Percent Auto 1.7 % (0.9-7.0); Hematocrit 41.4 % (36.0-48.0); Hemoglobin 13.4 g/dL (12.0-16.0); Immature Granulocytes Abs Auto 0.01 10^3/uL (0.00-0.03); Immature Granulocytes Pct Auto 0.2 % (0.0-0.5); Lymphocytes Absolute Auto 1.1 10^3/uL (1.2-3.8); Lymphocytes Percent Auto 20.6 % (20.5-60.0); Mean Corpuscular HGB Conc 32.4 g/dL (29.9-35.2); Mean Corpuscular Hemoglobin 31.1 pg (26.7-34.0); Mean Corpuscular Volume 96.1 fL (81.0-99.0); Mean Platelet Volume 11.3 fL (9.5-13.5); Monocytes Absolute Auto 0.5 10^3/uL (0.3-0.8); Monocytes Percent Auto 9.1 % (1.7-12.0); Neutrophils Absolute Auto 3.6 10^3/uL (1.4-6.5); Neutrophils Percent Auto 67.6 % (43.0-75.0); Platelet Count 235 10^3/uL (150-450); Red Blood Count 4.31 10^6/uL (4.20-5.40); Red Cell Distribution Width 11.9 % (11.0-15.0); White Blood Count 5.3 10^3/uL (4.0-11.0)
[2024-06-28 16:32] LABS: Free T4 1.27 ng/dL (0.76-1.46)
[2024-06-28 16:42] LABS: Alanine Aminotransferase 18 U/L (14-59); Albumin Globulin Ratio 1.3; Albumin Level 3.9 g/dL (3.4-5.0); Alkaline Phosphatase 78 U/L (46-116); Anion Gap 7.7; Aspartate Amino Transferase 20 U/L (15-37); BUN Creatinine Ratio 17.9; Bilirubin Total 0.5 mg/dL (0.2-1.0); Calcium 9.4 mg/dL (8.5-10.1); Carbon Dioxide 34.9 mmol/L (21.0-32.0); Chloride 103 mmol/L (98-107); Estimated GFR (African America >60 (>=60 mL/min/1.73m^2); Estimated GFR (Non-African Ame 57 (>=60 mL/min/1.73m^2); Globulin 3.1 g/dL; Glucose 94 mg/dL (74-106); Potassium 4.6 mmol/L (3.5-5.1); Sodium 141 mmol/L (136-145); Thyroid Stimulating Hormone 1.178 uIU/mL (0.358-3.740)
== END 2024-06-28 15:24 | disposition home or self-care (01) ==
PROVIDERS: PCP Family Medicine; Visit Provider Family Medicine
DX: I11.0 Hypertensive heart disease with heart failure (principal); I50.30 Unspecified diastolic (congestive) heart failure
CPT/HCPCS: 36415; 80053; 83880; 84439; 84443; 85025

== ENCOUNTER 2024-08-20 12:28 | Outpatient (OUT) | payer OTHER, SELFPAY ==
--- NOTE | 2024-08-20 11:52 | MR_ITS ---
The [address] [address] Patient Name: CRISTINE AVELAR MRN: [id number] date: 1945 Sex: F Assigned Patient Location: MRI Current Patient Location: MRI Accession/Order Number: [id number] Exam Date: 08/21/2024 13:28 Report Date: 08/21/2024 13:46 At the request of: PRISCILLA MARSHALL MD Procedure: MR angio head wo con MR angio head wo con 08/21/2024 12:52 PM SIGN OF SYMPTOMS: ^Persistent vertigo of central origin PROTOCOL: [id number] MRA imaging was obtained. FINDINGS: MRA BRAIN: The superior cerebellar arteries, posterior inferior cerebellar arteries, and the basilar artery are within normal limits. The posterior cerebral arteries are unremarkable. The intracranial segments of the internal carotid arteries are within normal limits. There are normal anterior and middle cerebral arteries. Anterior communicating artery is patent. Posterior communicating arteries are absent. MR/MR angio head wo con IMPRESSION: No focal stenosis, occlusion, or aneurysmal dilatation. Impression dictated by: Kody Pedersen Jr., DVitaliyOVitaliy 08/21/2024 1:46 PM Dictation Location: [place] [address] Electronically authenticated by: [id number] Y Date: 08/21/2024 13:46
--- NOTE | 2024-08-20 12:31 | MR_ITS ---
The [address] [address] Patient Name: CRISTINE AVELAR MRN: [id number] date: 1945 Sex: F Assigned Patient Location: MRI Current Patient Location: MRI Accession/Order Number: [id number] Exam Date: 08/20/2024 14:09 Report Date: 08/20/2024 14:11 At the request of: PRISCILLA MARSHALL MD Procedure: MR head/brain wo con EXAMINATION: MRI OF THE BRAIN WITHOUT CONTRAST CLINICAL HISTORY: Dizziness for 6 months. COMPARISON: None TECHNIQUE: Multiecho, multiplanar imaging of the brain was performed without enhancement. FINDINGS: No evidence of restriction diffusion is an diffusion-weighted imaging. No evidence of blood products are seen on T2 Star imaging. Cortical atrophy with moderate chronic microvascular ischemic changes are noted. This appears to extend into the erik and cerebellum. The dual appears unremarkable. Intraorbital contents appear unremarkable. Visualized paranasal sinuses are clear. Midline structures are grossly intact. MR/MR head/brain wo con IMPRESSION: NO ACUTE INTRACRANIAL ABNORMALITY. CORTICAL ATROPHY WITH MODERATE CHRONIC MICROVASCULAR ISCHEMIC CHANGES. Impression dictated by: Kody Pedersen Jr., D.O. 08/20/2024 2:11 PM Dictation Location: [place] [address] Electronically authenticated by: [id number] Y Date: 08/20/2024 14:11
== END 2024-08-20 12:29 | disposition home or self-care (01) ==
LOC: MRI 12:28
PROVIDERS: PCP Family Medicine; Visit Provider Family Medicine
DX: H81.4 Vertigo of central origin (principal); I67.82 Cerebral ischemia
CPT/HCPCS: 70544; 70551

== ENCOUNTER 2024-11-11 15:20 | Emergency (ER) | payer OTHER, SELFPAY ==
--- OUTSIDE RECORDS SUMMARY | 2023-08-08 06:40 | XMS_ITS ---
Author Organization [facility] Address [address] [place] [address] Care Team Providers Care Mass Spectrometry Manager Name Role Phone Jass Harrington Unavailable [phone] Robertandie Kate Unavailable REASON FOR VISIT right radial head fx, 1 wk ck, Follow-up right radial head fracture Medications Medication SIG (Take, Route, Fr equency, Duration) Notes Start Date End Date Status pantoprazole 40 mg TAKE 1 TABLET BY HUNTER TH EVERY DAY IN THE EVENING for 90 Days Activ e pantoprazole 40 mg for 90 Days Active simvastatin 20 mg TAKE 1 TABLET BY HUNTER TH EVERY DAY IN THE EVENING for 90 Days Activ e Social History Tobacco Use: Social History Observation Description Date Details (start date - stop date) Former Smoker NA - NA Smoking History Question Answer Notes Smoking Status Former Smoker Smoking Status Former Smoker AUDIT-C (Standard) Question Answer Notes Did you have a drink containing alcohol in the p ast year? No Did you have a drink containing alcohol in the p ast year? No Did you have a drink containing alcohol in the p ast year? No Did you have a drink containing alcohol in the p ast year? No Vital Signs Height 5'0 in 08/08/2023 Weight 97 lbs 08/08/2023 BMI 18.94 08/08/2023 Encounters Encounter Location Date Provider Diagnosis [facility] Office [address] [place] [address] [place] [address] 08/08/2023 Kate Dumont Closed nondisplaced fracture of head of right radius, initial encounter S52.124A Assessments Encounter Date Diagnosis (ICD Code) Assessment Notes Treatment Notes Treatment Clinical Notes Section Notes 08/08/2023 Closed nondisplaced fracture of head of right radius, initial encounter (ICD-10 - S52.124A) Right radial head fracture Left ankle sprain Abnormal x-ray finding-lef t ankle lucency seen on x-ray 08/08/2023 Other Patient has been in a splint/sling for her right radial head fracture for 2 weeks now. Her x-ray today shows good alignment of her fracture. I will take her out of the splint and have her start working on range of motion a few times a day. She can continue the sling until her next appointment. Patient states that she is tolerating her ankle pain in her shoe with ambulation and that it is improving. We will see her back in 4 weeks in the office for an x-ray of her right elbow. We can review her MRI of her ankle at that time. Right radial head fracture Left ankle sprain Abnormal x-ray finding-lef t ankle lucency seen on x-ray Plan Of Treatment Treatment Notes Assessment Notes Other Patient has been in a splint/sling for her right radial head fracture for 2 weeks now. Her x-ray today shows good alignment of her fracture. I will take her out of the splint and have her start working on range of motion a few times a day. She can continue the sling until her next appointment. Patient states that she is tolerating her ankle pain in her shoe with ambulation and that it is improving. We will see her back in 4 weeks in the office for an x-ray of her right elbow. We can review her MRI of her ankle at that time. Pending Test Test Name Order Date SCC- ELBOW 3 VIEW RIGHT [id number] 08/08/2023 Next Appt Details Follow Up: 4 Weeks, Reason: Progress Notes * CRISTINE AVELAR LDOB: [birth year] (78 yo F)Acc No.[id number]:08/08/2023 Patient: CRISTINE GARCIA Provider: TERRY Carney :1945 A ge:77 Y S ex:Female Date:08/08/2023 Address:[facility] [address], [facility] Subjective: * Chief Complaints: * 1 . Right radial head fx, 1 wk ck. 2. Follow-up right radial head fracture. * HPI: G eneral Follow Up Information: Patient presents to the office 2 weeks after her last visit for repeat x-rays out of her splint of her radial head fracture. Patient states that pain has been controlled. She denies any paresthesias to her fingers. Patient also suffered from a left ankle sprain that she was evaluated for at last visit. Patient states that she is wearing a normal shoe and will still have some pain when first rising from sitting during her first few steps. She has an MRI scheduled on 08/22 of her left ankle to evaluate the lucency seen on x-ray. * Medical History: * Social History: S moking History S moking Status F ormer Smoker, S moking Status F ormer Smoker. A ABHI-C (Standard) D id you have a drink containing alcohol in the past year? N o, Did you have a drink containing alcohol in the past year? N o, D id you have a drink containing alcohol in the past year? N o, D id you have a drink containing alcohol in the past year? N o. * Medications: T aking simvastatin 20 mg tablet TAKE 1 TABLET BY MOUTH EVERY DAY IN THE EVENING , Taking pantoprazole 40 mg delayed release tablet TAKE 1 TABLET BY MOUTH EVERY DAY IN THE EVENING , Taking pantoprazole 40 mg delayed release tablet , Medication List reviewed and reconciled with the patient Objective: * Vitals: H t: 5'0 , Wt: 97 lbs, BMI:18.94. * Examination: G eneral examination: O n exam patient is in no distress, she is age-appropriate, alert and oriented x 3. She is holding her right arm with her left arm. Right elbow is tender to palpation over the radial head. Her right elbow range of motion is limited flexion, extension, and pronation as compared contralaterally. Patient has a 5/5 golf ball trimmer strength bilaterally. Skin is intact to the right elbow with no erythema or warmth. . X -ray Imaging Studies: 3 V right elbow x-rays taken in office today and reviewed interpreted by myself as a nondisplaced radial head fracture. No other fracture or dislocation noted. Assessment: * Assessment: 1. C losed nondisplaced fracture of head of right radius, initial encounter - S52.124A (Primary) Right radial head fracture Left ankle sprain Abnormal x-ray finding-left ankle lucency seen on x-ray. Plan: * Treatment: 2. O thers Notes: Patient has been in a splint/sling for her right radial head fracture for 2 weeks now. Her x-ray today shows good alignment of her fracture. I will take her out of the splint and have her start working on range of motion a few times a day. She can continue the sling until her next appointment. Patient states that she is tolerating her ankle pain in her shoe with ambulation and that it is improving. We will see her back in 4 weeks in the office for an x-ray of her right elbow. We can review her MRI of her ankle at that time. * Follow Up: 4 Weeks Forms: * Images: * Electronic signature of Casa Dumont PA-C on 11/11/2024 at 03:26 PM EDT Sign off status: Pending * Provider: TERRY Carney Date: 0 08/08/2023 Generated for Aide borrero/Yana/Elizabeth on: 0 11/11/2024 03:26 PM EDT History and Physical Notes * HPI (History of Present Illness) Category Sub-Category Detail Notes Category Not es General Follow Up Information Patient presents to the office 2 weeks after her last visit for repeat x-rays out of her splint of her radial head fracture. Patient states that pain has been controlled. She denies any paresthesias to her fingers. Patient also suffered from a left ankle sprain that she was evaluated for at last visit. Patient states that she is wearing a normal shoe and will still have some pain when first rising from sitting during her first few steps. She has an MRI scheduled on 08/22 of her left ankle to evaluate the lucency seen on x-ray. Examination Category Sub-Category Detail Notes Category Not es General examination On exam patient is in no distress, she is age-appropriate, alert and oriented x 3. She is holding her right arm with her left arm. Right elbow is tender to palpation over the radial head. Her right elbow range of motion is limited flexion, extension, and pronation as compared contralaterally. Patient has a 5/5 golf ball trimmer strength bilaterally. Skin is intact to the right elbow with no erythema or warmth. X-ray Imaging Studies 3V rig ht elbow x-rays taken in office today and reviewed interpreted by myself as a nondisplaced radial head fracture. No other fracture or dislocation noted.
--- OUTSIDE RECORDS SUMMARY | 2024-07-18 10:33 | XMS_ITS ---
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 Encounters Encounter Location Date Provider Diagnosis [facility] [address] [place] [address] 07/18/2024 Bk Vanegas Persistent vertigo o f central origin H81.4 Assessments Encounter Date Diagnosis (ICD Code) Assessment Notes Treatment Notes Treatment Clinical Notes Section Notes 07/18/2024 Persistent vertigo of central origin (ICD-10 - H81.4) Plan Of Treatment Pending Test Test Name Order Date MRA Brain w/o contrast 07/18/2024 Next Appt Details Provider Name:Bk Vanegas, 02:30:00 PM, [address] [place], [address], Progress Notes * Jennifer AVELAR LDOB: [birth year] (78 yo F)Acc No.[id number]:07/18/2024 Patient: Jennifer GARCIA :1945 A ge:78 Y S ex:Female Address:[facility] [address] [place], [address] Subjective: * Chief Complaints: * V ertigo still * Medical History: * Surgical History: * Hospitalization/Major Diagno stic Procedure: * Medications: Objective: * Vitals: * Physical Examination: Assessment: * Assessment: 1. P ersistent vertigo of central origin - H81.4 (Primary) Plan: * Treatment: * Procedure Codes: * true * Date: Generated for Aide borrero/Yana/Elizabeth on: 0 11/11/2024 03:26 PM EDT
--- OUTSIDE RECORDS SUMMARY | 2024-08-20 10:27 | XMS_ITS ---
Author Organization The [facility] in [place] Address [address] [place] [address] Care Team Providers Care Residential Real Estate Agent Name Role Phone Bk Vanegas Primary Care Provider [phone] REASON FOR VISIT mri Encounters Encounter Location Date Provider Diagnosis [facility] [address] [place] [address] 08/20/2024 Bk Vanegas Plan Of Treatment Next Appt Details Provider Name:Bk Cee Guilherme, 02:30:00 PM, [address] [facility], [place], [address], Progress Notes * Jennifer AVELAR LDOB: [birth year] (78 yo F)Acc No.[id number]:08/20/2024 Patient: Jennifer GARCIA :1945 A ge:78 Y S ex:Female Address:[facility] [address] [place], [address] * true * Date: Generated for Printi ng/Faxing/eTransmitting on: 0 11/11/2024 03:26 PM EDT
--- OUTSIDE RECORDS SUMMARY | 2024-08-21 11:31 | XMS_ITS ---
Author Organization The [facility] in [place] Address [address] [place] [address] Care Team Providers Care Sorting Cows Worker Name Role Phone Bk Vanegas Primary Care Provider REASON FOR VISIT MRI Results Encounters Encounter Location Date Provider Diagnosis [facility] [address] [place] [address] 08/21/2024 Bk Vanegas Plan Of Treatment Next Appt Details Provider Name:Bk Cee Guilherme, 02:30:00 PM, [address] [place], [address], Progress Notes * Jennifer AVELAR LDOB: [birth year] (78 yo F)Acc No.[id number]:08/21/2024 Patient: Jennifer GARCIA :1945 A ge:78 Y S ex:Female Address:[facility] [address] [place], [address] * true * Date: Generated for Printi ng/Faxing/eTransmitting on: 0 11/11/2024 03:26 PM EDT
--- OUTSIDE RECORDS SUMMARY | 2024-09-20 11:23 | XMS_ITS ---
Author Organization The [facility] in [place] Address [address] [place] [address] Care Team Providers Care Local Company Refrigerated Truck Driver Name Role Phone Bk Vanegas Primary Care Provider [phone] REASON FOR VISIT [place] Medications Medication SIG (Take, Route, Frequency, Duration) Notes Start Date End Date Status HYDROcodone-Acetamino phen 5-325 MG 1 tablet as needed Orally every 6 hrs for 7 days PRN- back spasms 09/20/2024 Active Encounters Encounter Location Date Provider Diagnosis [facility] [address] [place] [address] 09/20/2024 Bk Vanegas Low back pain at multiple sites M54.50 Assessments Encounter Date Diagnosis (ICD Code) Assessment Notes Treatment Notes Treatment Clinical Notes Section Notes 09/20/2024 Low back pain at multiple sites (ICD-10 - M54.50) Plan Of Treatment Medication Medication Name Sig Start Date Stop Date Notes HYDROcodone-Acetaminophen 5-325 MG 1 tablet as needed Orally every 6 hrs for 7 days 09/20/2024 PRN- back spasms Next Appt Details Provider Name:Bk Jaye Bhagatmagnolia, 02:30:00 PM, [address] [place], [address], Progress Notes * Jennifer AVELAR LDOB: [birth year] (78 yo F)Acc No.[id number]:09/20/2024 Patient: Jennifer GARCIA :1945 A ge:78 Y S ex:Female Address:[address] [place] [address], [place], [address] * Refills Refill HYDROcodone-Acetaminophen Tablet, 5-325 MG, Orally, 20 Tablet, 1 tablet as needed, every 6 hrs, 7 days, Refills=0 * true * Date: Generated for Aide borrero/Yana/Joelitting on: 0 11/11/2024 03:26 PM EDT
--- OUTSIDE RECORDS SUMMARY | 2024-10-02 07:29 | XMS_ITS ---
Author Organization The [facility] in [place] Address [address] [place] [address] Care Team Providers Care Manager Floral Name Role Phone Bk Vanegas Primary Care Provider REASON FOR VISIT refill Medications Medication SIG (Take, Route, Frequency, Duration) Notes Start Date End Date Status Triamcinolone Acetonide 0.1 % 1 application Externally Twice a day for 06/30/2023 Active Encounters Encounter Location Date Provider Diagnosis [facility] [address] [place] [address] 10/02/2024 Bk Vanegas Hypertension I10 Assessments Encounter Date Diagnosis (ICD Code) Assessment Notes Treatment Notes Treatment Clinical Notes Section Notes 10/02/2024 Hypertension (ICD-10 - I10) Plan Of Treatment Medication Medication Name Sig Start Date Stop Date Notes Triamcinolone Acetonide 0.1 % 1 applicat ion Externally Twice a day for 06/30/2023 Next Appt Details Provider Name:Bk Vanegas, 02:30:00 PM, [address] [place], [address], Progress Notes * Jennifer AVELAR LDOB: [birth year] (78 yo F)Acc No.[id number]:10/02/2024 Patient: Jennifer GARCIA :1945 A ge:78 Y S ex:Female Address:[facility] [address] [place], [address] * Refills Refill Triamcinolone Acetonide Cream, 0.1 %, Externally, 60, 1 application, Twice a day, 30, Refills=11 * true * Date: Generated for Aide borrero/Yana/Elizabeth on: 0 11/11/2024 03:26 PM EDT
[2024-11-11] VITALS (11 sets, daily range): BP systolic 158–176; BP diastolic 78–91; PULSE 64–83; TEMP 37.2; O2SAT 98; BMI 17.0
--- OUTSIDE RECORDS SUMMARY | 2024-11-11 15:25 | XMS_ITS | CCD ---
Author Organization [facility] Care Team Providers Care Building Analyst/Supervisor Name Role Phone BONEBRITTANIE, SUE Primary Care Unavailable BONETTI, SUE Primary Care Unavailable BONETTI, SUE Primary Care Unavailable BONETTI, SUE Referring Unavailable BONETTI, SUE Primary Care Unavailable Bonetti, Sue Primary Care Provider BONETTI, SUE Primary Care Unavailable Bonetti, DO Kimmy Primary Care Provider DO Kimmy De La Cruz Attending Provider MD Andrez Hartman Attending Provider Kimmy De La Cruz Attending Unavailable Bonettgianluca, Kimmy Primary Care Unavailable Andrez Hartman Attending Unavailable Bonetti, Kimmy Primary Care Unavailable PHIL ROBLEDO Consulting Unavailable PHIL ROBLEDO Admitting Unavailable PHIL ROBLEDO Attending Unavailable WANDA HONG Consulting Unavailable TIMBO SHAH Admitting Unavailable TIMBO SHAH Attending Unavailable PRISCILLA VANEGAS Primary Care Unavailable Prabhu HAMMOND, Robert Guadalupe Attending Unavailab Timbo Kim Jr Attending Unavailable Elliott Jacobson Referring Unavailable Corporate, Doctor Attending Unavailable Corporate HAMMOND, Doctor Unavailable Unavailable Priscilla Vanegas MD Primary Care Provider Allergies Allergy Classification Reported Allergen(s) Allergy Type Date of Onset Reaction(s) Facility (2 sources) cefdinir Drug Allergy 11-16-2018 [facility] [place], [place] Medications Current Medications Medication Drug Class(es) Dates Sig (Normalized) Sig (Original) acetaminophen 325 mg oral capsule (2 sources) Acetaminophen (TYLENOL) 325 MG CAPS Take by [...] 03/19/2019 Active amLODIPine 2.5 mg oral tablet (4 sources) Dihydropyridine Calcium Channel Jun Start: 12-18-2021 take 1 tablet by mouth twice daily amLODIPine (NORVASC) 2.5 MG tablet Indications: Essential hypertension take 1 tablet by mouth twice a day 180 tablet 0 12/18/2021 Active Start: 09-28-2021 take 2.5 mg by mouth twice shaq ly Amlodipine Active 2.5 MG PO Twice A Day September 28, 2021 12:00am take 1 tablet by ethel th once daily amlodipine 2.5 mg tablet take 1 tablet by oral route every day 2.5 MG - Active ascorbic acid 1000 mg oral tablet (3 sources) Vitamin C Start: 09-29-2021 take 1 g by mouth every six hours Ascorbic Acid (Vitamin C) (Vitamin C) 1,000 mg Tablet Active 1 GM PO Q6H September 29, 2021 12:00am take 2 tablets by mouth once shaq ly Vitamin C 1,000 mg tablet take 2 tablet by oral route every day 2 tablet - Active Atenolol (5 sources) beta-Adrenergic Jun Start: 10-21-2020 Atenol ol Active October 21, 2020 8:36am Start: 10-21-2020 Atenolol Activ e October 21, 2020 9:36am Start: 01-24-2019 End: 09-29-2021 take 25 mg by mouth at bedtime Atenolol Discontinued 2 5 MG PO Bedtime January 24, 2019 1:00am September 29, 2021 10:57am bromfenac 0.7 mg/ml ophthalmic solution (1 source) Nonsteroidal Anti-inflammatory Drug Start: 09-10-2021 take 1 drop(s) into the eye(s) once daily PROLENSA 0.07 % SOLN INSTILL 1 DROP INTO THE LEFT EYE ONCE DAILY BEGINNING 2 DAYS BEFORE SURGERY 0 09/10/2021 Active cholecalciferol 0.025 mg oral capsule (4 sources) Vitamin D Start: 09-29-2021 take 1 capsule by mouth once daily Cholecalciferol (Vitamin D3) (Vitamin D3) 25 mcg (1,000 unit) Capsule Active 25 MCG PO Every Day September 29, 2021 12:00am take 1 capsule by mouth once shaq ly Vitamin D3 25 mcg (1,000 unit) capsule take 1 capsule by oral route every day 1 capsule - Active take 1 tablet by mouth once daniella y Vitamin D (CHOLECALCIFEROL) 25 MCG (1000 UT) TABS tablet Take 1 tablet by mouth daily 0 Active Co Q-10 (2 sources) Start: 10-21-2020 Co Q-10 Active October 21, 2020 8:36am Start: 10-21-2020 Co Q-10 Active October 21, 2020 9:36am ubidecarenone 100 mg oral ca psule (5 sources) Start: 09-29-2021 Coenzyme Q10 ( Coq-10) 100 mg Capsule Active 100 MG PO Every Day September 29, 2021 12:00am take 1 capsule by mouth once shaq ly Co Q-10 100 mg capsule take 1 capsule by oral route every day 1 capsule - Active Coenzyme Q10 (CO Q-10 MAXIMUM STRENGTH) 400 MG CAPS Take by mouth 0 Active diclofenac sodium 0.01 mg/mg topical gel (2 sources) Nonsteroidal Anti-inflammatory Drug Start: 08-06-2019 diclofenac sodium (VOLTAREN) 1 % GEL Apply 4 g topically 4 times daily 2 Tube 5 08/06/2019 Active 2 ml fentaNYL 0.05 mg/ml injection (1 source) Opioid Agonist Start: 08-25-2023 fentaNYL (SUBL IMAZE) injection 25 mcg levothyroxine sodium 0.075 mg oral tablet (7 sources) l-Thyroxine Start: 10-21-2020 Levothyroxine Sodium Active October 21, 2020 8:36am Start: 10-21-2020 Levothyroxine Sodium Active October 21, 2020 9:36am Start: 01-24-2019 take 1 tablet by ethel th once daily levothyroxine (SYNTHROID) 75 MCG tablet Indications: Acquired hypothyroidism take 1 tablet by mouth once daily 90 tablet 1 09/21/2021 Active take 1 capsule by mo uth once daily levothyroxine 75 mcg capsule take 1 capsule by oral route every day 75 MCG - Active loteprednol etabonate 0.0038 mg/mg ophthalmic gel (1 source) Start: 09-09-2021 apply 1 drop(s) into the eye(s) three times daily LOTEMAX SM 0.38 % GEL instill 1 drop INTO LEFT EYE THREE TIMES DAILY DIRECTED AFTER SURGERY 0 09/09/2021 Active Magnesium (3 sources) Start: 09-29-2021 take 200 mg by mouth once daily Magnesium Active 200 MG PO Every Day September 29, 2021 12:00am take 1 tablet by mouth once daniella y Magnesium 400 MG TABS Take 1 tablet by mouth Daily Takes 420 0 Active magnesium citrate 100 mg oral tablet (1 source) take 2 tablets by mouth three times weekly magnesium citrate 100 mg capsule take 2 tablet by oral route 3 times every week 2 tablet - Active meloxicam 7.5 mg oral tablet (4 sources) Nonsteroidal Anti-inflammatory Drug Start: 03-30-2021 take 1 tablet by mouth once daily as needed for pain meloxicam (MOBIC) 7.5 MG tablet Take 1 tablet by mouth daily as needed for Pain 30 tablet 0 03/30/2021 Active Start: 10-21-2020 Meloxicam Acti ve October 21, 2020 8:36am Start: 10-21-2020 Meloxicam Acti ve October 21, 2020 9:36am Start: 08-06-2019 take 1 tablet by ethel th once daily as needed for pain meloxicam (MOBIC) 7.5 MG tablet Take 1 tablet by mouth daily as needed for Pain 30 tablet 0 08/06/2019 Active moxifloxacin 5 mg/ml ophthalmic solution (1 source) Quinolone Antimicrobial Start: 09-09-2021 take 1 drop(s) into the eye(s) three times daily moxifloxacin (VIGAMOX) 0.5 % ophthalmic solution INSTILL 1 DROP INTO THE LEFT EYE THREE TIMES DAILY BEGINNING 2 DAYS BEFORE SURGERY 0 09/09/2021 Active naloxone 0.4 mg in 10 mL sodium chloride syringe (1 source) Start: 08-25-2023 naloxone 0.4 mg in 10 mL sodium chloride syringe NONFORMULARY (2 sources) NONFORMULARY CBD OIL 0 Active pantoprazole 40 mg delayed release oral tablet (1 source) Proton Pump Inhibitor take 1 tablet by mouth once daily pantoprazole (PROTONIX) 40 MG tablet Take 1 tablet by mouth daily 0 Active Probiotic 3 billion cell capsule (1 source) Probiotic 3 billion cell capsule - Active Probiotic Product (PROBIOTIC DAILY PO) (1 source) take 1 tablet by mouth once daily Probiotic Product (PROBIOTIC DAILY PO) Take 1 tablet by mouth daily 0 Active simvastatin 20 mg oral tablet (7 sources) HMG-CoA Reductase Inhibitor Start: 10-21-2020 Simvastatin Active October 21, 2020 8:36am Start: 10-21-2020 Simvastatin Ac tive October 21, 2020 9:36am Start: 01-24-2019 take 1 tablet by ethel th once daily in the evening simvastatin (ZOCOR) 20 MG tablet Indications: Mixed hyperlipidemia take 1 tablet by mouth every evening 90 tablet 1 09/21/2021 Active 5 ml sodium chloride 9 mg/ml injection (3 sources) Start: 08-25-2023 0.9 % sodium c hloride infusion Start: 08-25-2023 sodium chlorid e flush 0.9 % injection 5-40 mL vitamin B12 (1 source) Vitamin B12 take 1 tablet by mouth once daily Cyanocobalamin (VITAMIN B 12 PO) Take 1 tablet by mouth daily 0 Active Vitamin D3 (2 sources) Start: 10-21-2020 Vitamin D3 Active October 21, 2020 8:36am Start: 10-21-2020 Vitamin D3 Act guera October 21, 2020 9:36am Zinc (2 sources) Start: 09-29-2021 take 50 mg by mouth once daily Zinc Active 50 MG PO Daily September 29, 2021 12:00am Completed/Discontinued Medications Medication Drug Class(es) Dates Sig (Normalized) Sig (Original) calcium chloride 0.0014 meq/ml / potassium chloride 0.004 meq/ml / sodium chloride 0.103 meq/ml / sodium lactate 0.028 meq/ml injectable solution (1 source) Start: 08-25-2023 End: 08-25-2023 lactated ringers IV soln infusion dexamethasone 1 mg/ml / tobramycin 3 mg/ml ophthalmic suspension (1 source) Aminoglycoside Antibacterial, Corticosteroid Start: 08-25-2023 End: 08-25-2023 tobramycin-dexAMET Hasone (TOBRADEX) ophthalmic suspension 1 drop phenylephrine hydrochloride 100 mg/ml ophthalmic solution (1 source) alpha-1 Adrenergic Agonist Start: 08-25-2023 End: 08-25-2023 phenylephrine (SHARON-SYNEPHRINE) 10 % ophthalmic solution 1 drop tropicamide 10 mg/ml ophthalmic solution (1 source) Anticholinergic Start: 08-25-2023 End: 08-25-2023 tropicamide (MYDRIACYL) 1 % ophthalmic solution 1 drop Problems Active Problems Problem Classification Problem Date Documented Da te Episodic/Chronic Cataract (4 sources) Age-related nuclear cataract, right eye; Translations: [Cataract, Nuclear Sclerosis OD] Onset: 11-25-2023 Chronic Complications of surgical procedures or medical care (2 sources) Cystoid macular edema following cataract surgery, unspecified eye; Translations: [[place]-Maria Ines syndrome] Episodic Disorders of lipid metabolism (1 source) Mixed hyperlipidemia; Translations: [Mixed hyperlipidemia] Chronic Essential hypertension (2 sources) Hypertensive disorder; Translations: [Essential (primary) hypertension] Onset: 11-23-2018 11-23-2018 Chronic Osteoarthritis (2 sources) Osteoarthritis; Translations: [Unspecified osteoarthritis, unspecified site] Onset: 11-23-2018 11-23-2018 Chronic Other eye disorders (1 source) Vitreous degeneration, left eye Chronic Other upper respiratory infections (1 source) Acute upper respiratory infection, unspecified; Translations: [ACUTE UP RESPIRATORY INFECTION UNS] Onset: 03-02-2022 Episodic Residual codes; unclassified (1 source) Edema Onset: 11-25-2023 Episodic Retinal detachments; defects; vascular occlusion; and retinopathy (20 sources) Puckering of macula, left eye; Translations: [Puckering of macula, bilateral] Onset: 12-02-2021 Chronic Thyroid disorders (1 source) Acquired hypothyroidism; [...] COUGH, UNSPECIFIED; Translations: [COUGH, UNSPECIFIED] Onset: 02-28-2022 Unclassified (4 sources) ERM (chief complaint) Onset: 12-31-2022 Resolved: 09-21-2023 Unclassified (1 source) CME (chief complaint) Onset: 01-06-2022 Unclassified (1 source) macular pucker (chief complaint) Onset: 12-02-2021 Unclassified (1 source) Onset: 09-21-2021 09-21-2021 Results Test Name Value Interpretation Reference Range Facil ity Covid-19 PCR (CVDTB)on 02-05 SARS-CoV-2 (COVID-19) RNA TREVOR+probe Ql (Unsp spec) Not detected Normal NOT DETECTED [facility] Comment on above: Result Comment: This test is not yet approved or cleared by the [place] FDA. When there are no FDA-approved or cleared tests available, and other criteria are met, FDA can make tests available under an emergency access mechanism called an Emergency Use Authorization (EUA). The EUA for this test is supported by the Huc of Health and Human Service's (HHS's) declaration [...] consistent with SARS-CoV-2. Performed By: #### C VDTBH #### [facility] [address] [place] [address] Dr. Fabrice Garza INFL[facility] B [facility] 02[facility] Normal [facility] Comment on above: Result Comment: Nega tive for Flu A protein angiten. Infection due to Flu A cannot be ruled out. Flu A angiten in the sample may be below the detection limit of the test. Performed By: #### I NFLUAB #### [facility] [address] [place] [address] Dr. Fabrice Garza INFLUBNEG SEE BELOW Normal [facility] Comment on above: Result Comment: Nega tive for Flu B protein antigen. Infection due to Flu B cannot be ruled out. Flu B antigen in the sample may be below the detection limit of the test. Performed By: #### I NFLUAB #### [facility] [address] [address] [address] Fabrice Garza INFLUENZA A AG Negative Normal NEGATIVE SEE COMMENT [facility] Comment on above: Performed By: #### I NFLUAB #### [facility] [address] [address] [address] Fabrcie Garza INFLUENZA B AG Negative Normal NEGATIVE SEE COMMENT [facility] Comment on above: Performed By: #### I NFLUAB #### [facility] [address] [address] [address] Fabrice Garza INTERNAL CONTROLS Within Normal Limits Normal Wi thin Normal Limits [facility] Comment on above: Performed By: #### I NFLUAB #### [facility] [address] [place] [address] Dr. Fabrice Garza XR CHEST 1 Von [...] WANDA HONG Date: 2022-02-28 16:37 Normal [facility] XR CERVICAL SPINE (2-3 VIEWS )on 09-04-2021 [...] Kranthi Ribeiro MD 09/04/21 Final result Normal [facility] CBC With Platelet and Differ entialon 09-03-2021 Abs Imm Granulocytes 0.01 E9/L Normal [facility] Absolute Basophils 0.04 E9/L Normal 0.00-0.20 [facility] Absolute Eosinophils 0.12 E9/L Normal 0.05-0.50 [facility] Absolute Lymphocytes 0.90 E9/L Low 1.50-4.00 [facility] Absolute Monocytes 0.37 E9/L Normal 0.10-0.95 [facility] Absolute Neutrophils 2.34 E9/L Normal 1.80-7.30 [facility] Basophils/100 WBC (Bld) 1.1 % Normal 0.0-2.0 [facility] Eosinophils/100 WBC (Bld) 3.2 % Normal 0.0-6.0 [facility] Hematocrit (Bld) [Volume fraction] 41.7 % Normal 34.0-48.0 [facility] Hemoglobin (Bld) [Mass/Vol] 12.8 g/dL Normal 11.5-15.5 [facility] Imm Granulocytes 0.3 % Normal 0.0-5.0 [facility] Lymphocytes/100 WBC (Bld) 23.8 % Normal 20.0-42.0 [facility] MCH (RBC) [Entitic mass] 30.5 pg Normal 26.0-35.0 [facility] MCHC 30.7 % Low 32.0-34.5 [facility] MCV (RBC) [Entitic vol] 99.5 fL Normal 80.0-99.9 [facility] Monocytes/100 WBC (Bld) 9.8 % Normal 2.0-12.0 [facility] Neutrophils/100 WBC (Bld) 61.8 % Normal 43.0-80.0 [facility] Platelet Count 232 E9/L Normal 130-450 [facility] Platelet mean volume (Bld) [Entitic vol] 12.3 fL High 7.0-12.0 [facility] RBC 4.19 E12/L Normal 3.50-5.50 [facility] RDW 12.6 fL Normal 11.5-15.0 [facility] WBC 3.8 E9/L Low 4.5-11.5 [facility] Comprehensive Metabolic Pane rosie 09-03-2021 Albumin [Mass/Vol] 4.8 g/dL Normal 3.5-5.2 [facility] ALP [Catalytic activity/Vol] 66 U/L Normal 35-104 [facility] ALT [Catalytic activity/Vol] 11 U/L Normal 0-32 [facility] Anion gap [Moles/Vol] 15 mmol/L Normal 7-16 [facility] AST [Catalytic activity/Vol] 23 U/L Normal 0-31 [facility] Bilirubin [Mass/Vol] 0.3 mg/dL Normal 0.0-1.2 [facility] Calcium [Mass/Vol] 9.8 mg/dL Normal 8.6-10.2 [facility] Chloride [Moles/Vol] 102 mmol/L Normal 98-107 [facility] CO2 [Moles/Vol] 25 mmol/L Normal 22-29 [facility] Creatinine [Mass/Vol] 0.8 mg/dL Normal 0.5-1.0 [facility] GFR Calculated >60 Normal >=60 [facility] Comment on above: Result Comment: Traffic Incident Management Manager vika Kidney Disease: less than 60 ml/min/1.73 sq.m. Kidney Failure: less than 15 ml/min/1.73 sq.m. Results valid for patients 18 years and older. GFR/1.73 sq M.predicted among blacks MDRD (S/P/Bld) [Vol rate/Area] mL/min/{1.73_m2} Normal [facility] Glucose [Mass/Vol] 88 mg/dL Normal 74-99 [facility] Potassium [Moles/Vol] 4.3 mmol/L Normal 3.5-5.0 [facility] Protein [Mass/Vol] 7.2 g/dL Normal 6.4-8.3 [facility] Sodium [Moles/Vol] 142 mmol/L Normal 132-146 [facility] Urea nitrogen [Mass/Vol] 12 mg/dL Normal 6-23 [facility] Lipid Panelon 09-03-2021 Cholesterol [Mass/Vol] 210 mg/dL High 0-199 [facility] Cholesterol in HDL [Mass/Vol] 95 mg/dL Normal >40 [facility] Cholesterol in LDL [Mass/Vol] 98 mg/dL Normal 0-99 [facility] Triglyceride [Mass/Vol] 86 mg/dL Normal 0-149 [facility] VLDL Cholesterol (Calculated) 17 mg/dL Normal [facility] TSH w/out Reflexon TSH w/out Reflex 0.618 uIU/mL Normal 0.270-4.200 [facility] Thyroxine Freeon 09-03-2021 Thyroxine Free 2.12 ng/dL High 0.93-1.70 [facility] UR Microalbumin Randomon UR Microalbumin Random <12.0 Normal Not Established [facility] XR THORACIC SPINE (3 VIEWS)o n [...] Wanda Akers MD 09/03/21 Final result Normal [facility] Thyroxine Freeon 08-18-2019 Thyroxine Free 1.85 ng/dL High 0.93-1.70 [facility] CBC Auto Differentialon 08-05 Basophils (Bld) [#/Vol] 0.04 10*3/uL [facility], [place] Basophils/100 WBC (Bld) 1.0 % 0 - 2 % [facility], [place] Eosinophils (Bld) [#/Vol] 0.16 10*3/uL [place] Eosinophils/100 WBC (Bld) 4.1 % 0 - 6 % [place] Erythrocyte distribution width (RBC) [Ratio] 12.3 fL 11.5 - 15 fL [place] Hematocrit (Bld) [Volume fraction] 44.4 % 34 - 48 % [place] Hemoglobin (Bld) [Mass/Vol] 14.2 g/dL 11.5 - 15.5 g/dL [place] Immature granulocytes (Bld) [#/Vol] 0.01 10*3/uL E9/L [place] Immature granulocytes/100 WBC (Bld) 0.3 % 0 - 5 % [place] Interpretation and review of laboratory results Abnormal [place] Lymphocytes (Bld) [#/Vol] 1.04 10*3/uL [place] Lymphocytes/100 WBC (Bld) 26.5 % 20 - 42 % [place] MCH (RBC) [Entitic mass] 31.8 pg 26 - 35 pg [place] MCHC (RBC) [Mass/Vol] 32.0 % 32 - 34.5 % [place] MCV (RBC) [Entitic vol] 99.3 fL 80 - 99.9 fL [place] Monocytes (Bld) [#/Vol] 0.35 10*3/uL [place] Monocytes/100 WBC (Bld) 8.9 % 2 - 12 % [place] Neutrophils Absolute 2.32 [place] Neutrophils/100 WBC (Bld) 59.2 % 43 - 80 % [place] Platelet mean volume (Bld) [Entitic vol] 12.5 fL High 7 - 12 fL [place] Platelets (Bld) [#/Vol] 166 10*3/uL [place] RBC (Bld) [#/Vol] 4.47 10*6/uL [place] WBC (Bld) [#/Vol] 3.9 10*3/uL Low [facility], [place] CBC With Platelet and Differ entialon 08-17-2019 Abs Imm Granulocytes 0.01 E9/L Normal [facility] Basophils (Bld) [#/Vol] 0.04 E9/L Normal 0.00-0.20 [facility] Basophils/100 WBC (Bld) 1.0 % Normal 0.0-2.0 [facility] Eosinophils (Bld) [#/Vol] 0.16 E9/L Normal 0.05-0.50 [facility] Eosinophils/100 WBC (Bld) 4.1 % Normal 0.0-6.0 [facility] Erythrocyte distribution width (RBC) [Ratio] 12.3 fL Normal 11.5-15.0 [facility] Hematocrit (Bld) [Volume fraction] 44.4 % Normal 34.0-48.0 [facility] Hemoglobin (Bld) [Mass/Vol] 14.2 g/dL Normal 11.5-15.5 [facility] Imm Granulocytes 0.3 % Normal 0.0-5.0 [facility] Lymphocytes (Bld) [#/Vol] 1.04 E9/L Low 1.50-4.00 [facility] Lymphocytes/100 WBC (Bld) 26.5 % Normal 20.0-42.0 [facility] MCH (RBC) [Entitic mass] 31.8 pg Normal 26.0-35.0 [facility] MCHC (RBC) [Mass/Vol] 32.0 % Normal 32.0-34.5 [facility] MCV (RBC) [Entitic vol] 99.3 fL Normal 80.0-99.9 [facility] Monocytes (Bld) [#/Vol] 0.35 E9/L Normal 0.10-0.95 [facility] Monocytes/100 WBC (Bld) 8.9 % Normal 2.0-12.0 [facility] Neutrophils (Bld) [#/Vol] 2.32 E9/L Normal 1.80-7.30 [facility] Neutrophils/100 WBC (Bld) 59.2 % Normal 43.0-80.0 [facility] Platelet mean volume (Bld) [Entitic vol] 12.5 fL High 7.0-12.0 [facility] Platelets (Bld) [#/Vol] 166 E9/L Normal 130-450 [facility] RBC (Bld) [#/Vol] 4.47 E12/L Normal 3.50-5.50 [facility] WBC (Bld) [#/Vol] 3.9 E9/L Low 4.5-11.5 [facility] Comprehensive Metabolic Pane rosie 08-17-2019 Albumin [Mass/Vol] 4.4 g/dL Normal 3.5-5.2 [facility] ALP [Catalytic activity/Vol] 69 U/L Normal 35-104 [facility] ALT [Catalytic activity/Vol] 9 U/L Normal 0-32 [facility] Anion gap [Moles/Vol] 12 mmol/L Normal 7-16 [facility] AST [Catalytic activity/Vol] 20 U/L Normal 0-31 [facility] Bilirubin [Mass/Vol] 0.6 mg/dL Normal 0.0-1.2 [facility] Calcium [Mass/Vol] 10.2 mg/dL Normal 8.6-10.2 [facility] Chloride [Moles/Vol] 100 mmol/L Normal 98-107 [facility] CO2 [Moles/Vol] 29 mmol/L Normal 22-29 [facility] Creatinine [Mass/Vol] 0.8 mg/dL Normal 0.5-1.0 [facility] GFR/1.73 sq M predicted among blacks MDRD (S/P/Bld) [Vol rate/Area] mL/min/{1.73_m2} Normal [facility] GFR/1.73 sq M predicted among non-blacks MDRD (S/P/Bld) [Vol rate/Area] mL/min/{1.73_m2} Normal >=60 [facility] Comment on above: Result Comment: Traffic Incident Management Manager vika Kidney Disease: less than 60 ml/min/1.73 sq.m. Kidney Failure: less than 15 ml/min/1.73 sq.m. Results valid for patients 18 years and older. Glucose [Mass/Vol] 92 mg/dL Normal 74-99 [facility] Potassium [Moles/Vol] 5.1 mmol/L High 3.5-5.0 [facility] Protein [Mass/Vol] 7.1 g/dL Normal 6.4-8.3 [facility] Sodium [Moles/Vol] 141 mmol/L Normal 132-146 [facility] Urea nitrogen [Mass/Vol] 11 mg/dL Normal 8-23 [facility] Albumin [Mass/Vol] 4.4 g/dL 3.5 - 5.2 g/dL [place] ALP [Catalytic activity/Vol] 69 U/L 35 - 104 U/L [place] ALT [Catalytic activity/Vol] 9 U/L 0 - 32 U/L [place] Anion gap [Moles/Vol] 12 mmol/L 7 - 16 mmol/L [place] AST [Catalytic activity/Vol] 20 U/L 0 - 31 U/L [place] Bilirubin Ql (U) 0.6 mg/dL 0 - 1.2 mg/dL [place] Calcium [Mass/Vol] 10.2 mg/dL 8.6 - 10.2 mg/dL [place] Chloride [Moles/Vol] 100 mmol/L 98 - 107 mmol/L [place] CO2 [Moles/Vol] 29 mmol/L 22 - 29 mmol/L [place] Creatinine [Mass/Vol] 0.8 mg/dL 0.5 - 1 mg/dL [place] GFR >60 [place] GFR Non- >60 >=60 mL/min/1.73 [place] Comment on above: Chronic Kidney Disea se: less than 60 ml/min/1.73 sq.m. Kidney Failure: less than 15 ml/min/1.73 sq.m. Results valid for patients 18 years and older. Glucose [Mass/Vol] 92 mg/dL 74 - 99 mg/dL [place], [place] Interpretation and review of laboratory results Abnormal [place] Potassium [Moles/Vol] 5.1 mmol/L High 3.5 - 5 mmol/L [place] Protein [Mass/Vol] 7.1 g/dL 6.4 - 8.3 g/dL [place] Sodium [Moles/Vol] 141 mmol/L 132 - 146 mmol/L [place] Urea nitrogen [Mass/Vol] 11 mg/dL 8 - 23 mg/dL [place] Lipid Panelon 08-17-2019 Cholesterol [Mass/Vol] 192 mg/dL Normal 0-199 [facility] Cholesterol in HDL [Mass/Vol] 84 mg/dL Normal >40 [facility] Cholesterol in LDL [Mass/Vol] 93 mg/dL Normal 0-99 [facility] Triglyceride [Mass/Vol] 73 mg/dL Normal 0-149 [facility] VLDL Cholesterol (Calculated) 15 mg/dL Normal [facility] Cholesterol [Mass/Vol] 192 mg/dL 0 - 199 mg/dL [place] Cholesterol in HDL [Mass/Vol] 84 mg/dL >40 [place] Cholesterol in LDL [Mass/Vol] 93 mg/dL 0 - 99 mg/dL [place] Triglyceride [Mass/Vol] 73 mg/dL 0 - 149 mg/dL [place] VLDL Cholesterol Calculated 15 mg/dL [place] T4, Freeon 08-17-2019 Free T4 [Mass/Vol] 1.85 ng/dL High 0.93 - 1.7 ng/dL [place] Interpretation and review of laboratory results Abnormal [place] TSH w/out Reflexon 0 TSH Qn 2.150 uIU/mL Normal 0.270-4.200 [facility] TSH without Reflexon 020 TSH Qn 2.150 m[IU]/L [place] XR KNEE RIGHT (3 VIEWS)on XR KNEE RIGHT (3 VIEWS) EXAMINATION: THREE XRAY VIEWS OF THE RIGHT KNEE 08/06/2019 4:58 pm COMPARISON: None. HISTORY: ORDERING SYSTEM PROVIDED HISTORY: Right hip pain Pain FINDINGS: There is mild infrapatellar soft tissue swelling. Ifph-et-eeoycrnn patellofemoral joint space narrowing. There is a [...] Maury Ojeda MD 08/07/19 Final result Normal [facility] XR HIP RIGHT (2-3 VIEWS)on 0 [...] Alex Frias MD 08/06/19 Final result Normal [facility] XR HIP 2-3 VW W PELVIS [...] Kranthi Solis DO 01/25/19 Final result Normal [facility] XR LUMBAR SPINE (2-3 VIEWS)o n [...] Kranthi Solis DO 01/25/19 Final result Normal [facility] Vital Signs Date Time Vital Sign Value Performing Clinician Faci lity 08-25-2023 11:15-0400 Body temperature 97.7 [degF] Timbo Shah MD Work Phone: [employer] 08-25-2023 11:15-0400 Diastolic blood pressure 77 mm[Hg] Timbo Shah MD Work Phone: [facility] [employer] 08-25-2023 11:15-0400 Heart rate 70 /min Timbo Shah MD Work Phone: [facility] [employer] 08-25-2023 11:15-0400 Respiratory rate 18 /min Timbo Shah MD Work Phone: [employer] 08-25-2023 11:15-0400 SaO2% (BldA) [Mass fraction] 98 % Timbo Shah MD Work Phone: [employer] 08-25-2023 11:15-0400 Systolic blood pressure 157 mm[Hg] Timbo Shah MD Work Phone: [facility] [employer] 08-25-2023 08:25-0400 Body height 160 cm Timbo Shah MD Work Phone: [employer] 08-25-2023 08:25-0400 Body mass index (BMI) [Ratio] 17.71 kg/m2 Timbo Shah MD Work Phone: [employer] 08-25-2023 08:25-0400 Body weight 45.36 kg Timbo Shah MD Work Phone: [employer] 10-02-2021 13:15-0400 Diastolic blood pressure 74 mm[Hg] DO Kimmy Bonetti Work Phone: [facility] Work Phone: 10-02-2021 13:15-0400 Heart rate 76 /min DO Kimmy Bonetti Work Phone: [facility] Work Phone: 10-02-2021 13:15-0400 Respiratory rate 18 /min DO Kimmy Bonetti Work Phone: [facility] Work Phone: 10-02-2021 13:15-0400 SaO2% (BldA) [Mass fraction] 97 % DO Kimmy Bonetti Work Phone: [facility] Work Phone: 10-02-2021 13:15-0400 Systolic blood pressure 133 mm[Hg] DO Kimmy Bonetti Work Phone: [facility] Work Phone: 10-02-2021 12:53-0400 Body temperature 97.3 [degF] DO Kimmy Bonetti Work Phone: [facility] Work Phone: 10-02-2021 10:18-0400 Body height 160.02 cm DO Kimmy Bonetti Work Phone: [facility] Work Phone: 10-02-2021 10:18-0400 Body mass index (BMI) [Ratio] 19.1 kg/m2 DO Kimmy Bonetti Work Phone: [facility] Work Phone: 10-02-2021 10:18-0400 Body weight 48.99 kg DO Kimmy Bonetti Work Phone: [facility] Work Phone: 01-14-2021 09:45-0500 Body temperature 97.8 [degF] [facility] Phone: 01-14-2021 09:45-0500 Diastolic blood pressure 74 mm[Hg] [facility] Phone: 01-14-2021 09:45-0500 Heart rate 60 /min [facility] Phone: 01-14-2021 09:45-0500 Respiratory rate 16 /min [facility] Phone: 01-14-2021 09:45-0500 SaO2% (BldA) [Mass fraction] 99 % [facility] Phone: 01-14-2021 09:45-0500 Systolic blood pressure 160 mm[Hg] [facility] Phone: 01-12-2021 17:29-0500 Body height 160.02 cm [facility] Phone: 01-12-2021 17:29-0500 Body mass index (BMI) [Ratio] 19.5 kg/m2 [facility] Phone: 01-12-2021 17:29-0500 Body weight 49.9 kg [facility] Phone: 12-24-2020 10:00-0400 Body temperature 97 [degF] [facility] Phone: 12-24-2020 10:00-0400 Diastolic blood pressure 66 mm[Hg] [facility] Phone: 12-24-2020 10:00-0400 Heart rate 71 /min [facility] Phone: 12-24-2020 10:00-0400 Respiratory rate 16 /min [facility] Phone: 12-24-2020 10:00-0400 SaO2% (BldA) [Mass fraction] 97 % [facility] Phone: 12-24-2020 10:00-0400 Systolic blood pressure 158 mm[Hg] [facility] Phone: 12-18-2020 12:08-0400 Body height 160.02 cm [facility] Phone: 12-18-2020 12:08-0400 Body mass index (BMI) [Ratio] 19.5 kg/m2 [facility] Phone: 12-18-2020 12:08-0400 Body weight 49.9 kg [facility] Phone: Encounters Encounter Date Encounter Type Care Provider Facility Start: 02-28-2024 End: 02-28-2024 Doctor Corporate Work Phone: [facility] Start: 02-28-2024 ambulatory Doctor [facility] Start: 12-21-2023 End: 12-21-2023 ambulatory Robert Pelletier MD Facility:[facility] Start: 11-25-2023 End: 11-25-2023 Office outpatient visit 15 minutes Timbo Shah Jr Work Phone: [facility] Start: 11-25-2023 ambulatory Timbo Shah Jr [facility] Start: 09-21-2023 End: 09-21-2023 Timbo Shah Jr Work Phone: [facility] Start: 09-21-2023 End: 09-21-2023 Postop follow up visit related to original px Doctor Corporate MD [facility] Start: 08-26-2023 End: 08-26-2023 Timbo Shah Jr Work Phone: [facility] Start: 08-26-2023 End: 08-26-2023 Postop follow up visit related to original px Doctor Corporate MD [facility] Start: 08-25-2023 End: 08-25-2023 Timbo Shah Jr Work Phone: [facility] Start: 08-25-2023 End: 08-25-2023 [facility] Start: 08-25-2023 End: 08-25-2023 Subsequent hospital visit by physician Timbo Shah MD Work Phone: [facility] Start: 07-22-2023 End: 07-22-2023 Office outpatient visit 25 minutes Timbo Shah Jr Work Phone: [facility] Start: 12-31-2022 End: 12-31-2022 Timbo Shah Jr Work Phone: [facility] Start: 02-28-2022 End: 02-28-2022 ambulatory PHIL ROBLEDO Facility: Start: 01-06-2022 End: 01-06-2022 Office outpatient visit 15 minutes Timbo Shah Jr Work Phone: [facility] Start: 12-02-2021 End: 12-02-2021 Office outpatient new 45 minutes Timbo Shah Jr Work Phone: [facility] Start: 10-02-2021 End: 10-02-2021 ambulatory Andrez Brine Facility:[facility] Start: 10-02-2021 End: 10-02-2021 Admission to same day surgery center DO Kimmy Bonetti Work Phone: [facility] Start: 09-28-2021 End: 09-28-2021 ambulatory Kimmy Bonetti Facility:[facility] Start: 09-28-2021 End: 09-28-2021 ambulatory DO Kimmy Bonetti Work Phone: [facility] Work Phone: Start: 09-28-2021 End: 09-28-2021 Discharged Recurring DO Kimmy Bonetti Work Phone: [facility] Start: 09-28-2021 Registered Recurring DO AnnMar kim Bonetti Work Phone: [facility] Start: 09-03-2021 ambulatory SANJANA PEOPLES [facility] Start: 01-14-2021 End: 01-14-2021 Patient encounter procedure [facility] Start: 01-08-2021 Non-patient / Non-visit [facility] [address] Start: 12-24-2020 End: 12-24-2020 Patient encounter procedure [facility] Start: 12-11-2020 Non-patient / Non-visit [facility] [address] Start: 12-10-2020 Patient encounter procedure [facility] Start: 08-17-2019 End: 08-20-2019 Patient encounter procedure [facility] Start: 08-17-2019 End: 08-19-2019 Subsequent hospital visit by physician Sanjana [facility] Comment on above: Acquired hypothyroid ism; Mixed hyperlipidemia Start: 08-06-2019 Patient encounter procedure [facility] Start: 01-25-2019 Patient encounter procedure [facility] Procedures Date Procedure Procedure Detail Performing Clinician Start: 11-25-2023 End: 11-25-2023 Computerized ophthalmic imaging retina Timbo Shah Jr Start: 09-21-2023 End: 09-21-2023 OCT No Charge Uni Or Bi Doctor Corporate HAMMOND Start: 08-25-2023 End: 08-25-2023 Vitrectomy pars plana remove int memb retina Doctor Corporate HAMMOND Start: 07-22-2023 End: 07-22-2023 Computerized ophthalmic imaging retina Doctor Corporate H[facility]MOND Start: 12-31-2022 End: 12-31-2022 Computerized ophthalmic imaging retina Doctor Corporate HAMMOND Start: 01-06-2022 End: 01-06-2022 Computerized ophthalmic imaging retina Doctor Corporate H[facility]MOND Start: 12-02-2021 End: 12-02-2021 Computerized ophthalmic imaging retina Doctor Corporate H[facility]MOND Start: 10-02-2021 Phacoemulsification of cataract with intraocular lens implantation DO Kimmy De La Cruz Work Phone: Start: 06-30-2022 Radex spine thoracic 3 views SANJANA DE [...] Blood count complete auto&auto difrntl wbc SANJANA BONETTGianluca Start: 08-17-2019 Comprehensive metabolic panel SANJANA NELSON [...] Treatment Date Care Activity Detail Author Start: 11-25-2023 Smoking cessation education Tobacco cessation counseling [facility] Start: 10-06-2023 Influenza vaccination Flu vacc ine (Season Ended) [facility] Start: 08-25-2023 End: 08-25-2023 Vitrectomy pars plana remove int memb retina EYE VITRECTOMY Macular pucker, left 08/25/2023 10:03 AM EDT [facility] Start: 07-22-2023 Referral to tobacco use cessation clinic Tobacco cessation counseling [facility] Start: 03-07-2023 Annual Wellness Visi t (Medicare Advantage) Annual Wellness Visit (Medicare Advantage) [facility] Start: 09-21-2022 Depression Screen Depression Screen [facility] Start: 09-03-2022 Lipid panel Lipids [facility] Start: 12-02-2021 Smoking cessation education Tobacco cessation counseling [facility] Start: 01-14-2021 Fluoroscopic guidance FL guided spin e [facility] Phone: Start: 12-24-2020 Fluoroscopic guidance [place] guided spin e [facility] Phone: Start: 08-16-2020 Lipid panel Lipid screen [place], [place] Start: 11-06-2019 Influenza vaccination Flu vacc ine (Season Ended) [place] Start: 08-21-2019 End: 08-21-2019 Office Visit 08/21/2019 Office Visit Family Medicine Sanjana De La Cruz, DO [address] [facility] [place], [place] [id number] [facility] Start: 12-10-2018 Screening for malign ant neoplasm of colon Colon Cancer Screen FIT/FOBT [place] Start: 08-25-2018 Annual Wellness Visi t (AWV) Annual Wellness Visit (AWV) [place] Start: 2003 Respiratory Syncytia l Virus (RSV) or age 60 yrs+ (1 - 1-dose 60+ series) Respiratory Syncytial Virus (RSV) or age 60 yrs+ (1 - 1-dose 60+ series) [facility] Start: 12-05-1998 Screening for osteoporosis DEXA (modify frequency per FRAX score) [facility] Start: 12-05-1993 Shingles Vaccine (1 of 2) Shingles Vaccine (1 of 2) [facility] Start: 12-05-1962 DTaP/Tdap/Td vaccine (1 - Tdap) DTaP/Tdap/Td vaccine (1 - Tdap) [facility] Start: 06-05-1944 COVID-19 Vaccine (#1) COVID-19 Vacci ne (#1) [facility] End: 06-20-2024 INITIATE PACU OXYGEN THERAPY PROTOCOL Initiate PACU Oxygen Therapy Protocol Respiratory Care Routine Continuous until discontinued starting 08/25/2023 [facility] Work Phone: Comment on above: Continuous until dis continued starting 08/25/2023 Patient Education [facility] Phone: Patient referral [facility] Phone: Immunizations Immunization Date Immunization Notes Care Provider Fa [facility] 02-21-2020 Influenza, FLUAD, (a ge 65 y+), Adjuvanted, 0.5mL Timbo Shah MD Work Phone: [facility] 08-21-2019 pneumococcal conjuga te vaccine, 13 valent Timbo Shah MD Work Phone: [facility] 12-01-2017 influenza, high dose seasonal, preservative-free [facility] 06-02-2017 pneumococcal polysaccharide vaccine, 23 valent [facility] 12-08-2016 Influenza Vaccine, unspecified formulation [facility] , [place] 12-08-2016 influenza virus vacc ine, unspecified formulation [facility] [place] 12-09-2015 Influenza Vaccine, unspecified formulation [facility] [place] 12-09-2015 influenza virus vacc ine, unspecified formulation [facility] [place] 11-06-2014 Influenza Vaccine, unspecified formulation [facility] [place] 11-06-2014 influenza virus vacc ine, unspecified formulation [facility] [place] 11-19-2013 Influenza Vaccine, unspecified formulation [facility] [place] 11-19-2013 influenza virus vacc ine, unspecified formulation [place], [place] Payers Date Payer Category Payer Private Health Insurance 2021 Self-pay [id number] 2020 Medicaid [id number] 2017 Medicare [id number] 2017 Medicare [facility] THEM MEDIBLUE ESSENTIAL/PLUS xxxxxxxxxxxx 2017-Present [address] [address] [place] [address] xxxxxxxxxxxx [id number] 1959 Medicare [id number] 1943 Unknown [id number] 1943 Unknown [id number] 1943 Unknown [id number] 1943 Unknown [id number] 1943 Unknown [id number] 1943 Unknown [id number] 1943 Unknown [id number] 1943 Unknown [id number] .196 1943 Unknown [id number] .[id number] 1943 Unknown [id number] Unknown [id number] Unknown [id number] Social History Date Type Detail Facility Start: 08-06-2019 Tobacco smoking status NHIS Current every day smoker [place] Start: 02-06-2006 End: 02-07-2020 History of tobacco use Cigarette Smoker [place] Start: 08-06-2019 End: 02-21-2020 Cigarettes smoked current (pack per day) - Reported [place] Start: 08-06-2019 Alcohol intake Current drinker of alcohol (finding) [place] Start: 11-23-2018 History SDOH Alcohol Frequency 2 [place] Start: 11-23-2018 History SDOH Alcohol Std Drinks 1 [place] Start: 1945 Sex Assigned At Not on file [place] Start: 12-24-2020 Former Smoker [facility] Phone: Start: 12-18-202012-24 [facility] Phone: Start: 12-18-202012-23 [facility] Phone: Start: 1945 Sex Assigned At Female [facility] Phone: Start: 10-02-2021 End: 08-25-2023 Tobacco smoking status NHIS Ex-smoker (finding) [employer] Start: 10-02-2021 Yes [facility] Work Phone: Start: 02-28-2024 Tobacco smoking status NHIS Unknown if ever smoked [facility] Start: 02-28-2024 Alcohol intake Alcohol Use Details [facility] Start: 02-06-2006 End: 02-07-2020 History of tobacco use Current smoker [employer] Start: 08-25-2023 Tobacco use and exposure Smokeless tobacco non-user [employer] Start: 08-25-2023 Alcohol intake Ex-drinker (finding) [employer] Start: 02-21-2020 End: 09-21-2021 Alcohol Use Disorder Identification Test - Consumption [AUDIT-C] [employer] How often to you hav e a drink containing alcohol? Monthly or less [employer] How many standard dr inks containing alcohol do you have on a typical day? 1 or 2 [employer] How often do you hav e 6 or more drinks on 1 occasion? Never [employer] How hard is it for y ou to pay for the very basics like food, housing, medical care, and heating Patient declined [employer] Medical Equipment Procedure Code Equipment Code Equipment Original Text Equipment Identifier Dates Phacoemulsification of cataract with intraocular lens implant LENS [id number] FDA Start: 10-02-2021 Goals Date Patient Goal Desired Activity /State Functional Status Date Assessment Result Facility 10-02-2021 Functional status Ability to Fol low Directions Excellent [facility] Work Phone: 10-02-2021 Functional status Glasses [facility] Work Phone: 01-14-2021 Functional status Mobility - Ski n Risk Assessment Scale No Limitations [facility] Phone: 01-12-2021 Functional status Visual Assisti ve Devices Glasses [facility] Phone: 12-24-2020 Functional status Mobility - Ski n Risk Assessment Scale No Limitations [facility] Phone: 12-18-2020 Functional status Visual Assisti ve Devices Glasses [facility] Phone: Mental Status Date Assessment Result Facility 10-02-2021 Cognitive function Patient Behav ior Appropriate;Cooperative [facility] Work Phone: 10-02-2021 Cognitive function No [facility] Work Phone: 01-14-2021 Cognitive function Level Of Cons ciousness Awake;Alert;Appropriate;Follow s Commands [facility] Phone: 12-24-2020 Cognitive function Level Of Cons ciousness Awake;Alert;Appropriate;Follow s Commands [facility] Phone: Clinical Notes 08-25-2023 to 11-25-2023 Note Date & Type Note Facility 11-25-2023 History of Presen t illness Narrative Encounter Date edema The 77 year old female presents for evaluation of edema in the left eye. C/O decreased near vision OS x 3 months ERM The 77 year old patient presents for evaluation of ERM in the left eye treated 08.25.23. Pt. Reports increased vision OS x gradual ERM The 77 year old patient presents for evaluation of ERM in the left eye treated 08.25.23. C/O wavy vision OS since patch removed. ERM The 77 year old patient presents for evaluation of ERM in the left eye. The patient denies new vision change in either eye since her last exam about 7 mths ago. The patient continues to have distortion in her left eye. ERM The 77 year old female presents for evaluation of ERM in the left eye. Patient reports stable vision since last visit 1 year ago. Patient denies flashes, floaters or eye pain. Patient states she is no longer using prescription gtts. CME The 76 year old female presents for 5 week follow up of CME in the left eye. Patient reports a slight improvement in vision at times OS. Still wavy but blinks and goes away. Patient using eye drops as directed she does forget a drop sometime. macular pucker The 75 year old female presents for evaluation of macular pucker in the left eye Dr. Hartman. Patient seen in October of 2021 after cataract surgery OS and was told to have retina evaluation. Patient states history of retinal tears with laser OS in [address] in 2011. Patient states blurry vision left eye at distance and near. [facility] Work Phone: 1([phone]) 296-866809-20-2024 Instructions* Date Instruction Additional Infor juan 3 months FU/OCT Related to Macul ar Pucker OU Impression/Plan Related to Catar act, Nuclear Sclerosis OD Impression/Plan Related to Macul ar Edema OS Impression/Plan Related to Macul ar Pucker OU Return in 2 months Related to Pu ckering of macula, left eye Impression/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, left eye Impression/Plan Related to Macul ar Edema OS 1 month FU/OCT Related to Pucke ring of macula, left eye Impression/Plan Related to Macul ar Edema OS Impression/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, left eye Impression/Plan Related to Prese nce of intraocular lens Impression/Plan Related to Age-r elated nuclear cataract, right eye Impression/Plan Related to Macul ar Edema OS Impression/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, left eye Oct Impression/Plan Related to Age-r elated nuclear cataract, right eye Oct Impression/Plan Related to Prese nce of intraocular lens Oct Impression/Plan Related to Cysto id macular degeneration, left eye Oct Impression/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, left eye Return in 5 week(s) follow up an d OCT Related to Cystoid macular degeneration, 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/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, left eye Impression/Plan Related to Cysto id macular degeneration, left eye Return in 5 weeks follow up and OCT Related to Puckering of macula, left eye Impression/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, 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 You may have a normal diet but should eat lightly day of surgery. Drink plenty of fluids. Urinate within 8 hours after surgery, if unable to urinate call your doctor documented in [facility]* Clinical Note Date No Information [facility] Work Phone: Discharge summary* Clinical Note Date No Information [facility] Work Phone: Evaluation noteNo assessment [facility]: Evaluation note* Type Assessment Date No Information [facility] Work Phone: Evaluation note* Diagnosis Macular pucker, left eye Macular puckering of retina [facility] this [facility] Clinical Note Date No Information [facility] Work Phone: Hospital Discharge instructions Additional Instructions NO LIFTING NO BENDING KEEP EYE SHIELD IN PLACE FOLLOW UP WITH DR HARTMAN TOMORROW AT 9:30AM [facility] E[facility]: progress note* Clinical Note Date No Information [facility] Work Phone: Reason for referral (narrative)* Reason For Referral No Information [facility] Work Phone: Summary Purpose Family History Relationship Condition Age at Onset Recorded Date/T victorino Not Specified Malignant neoplasm of prostate Unknown Relationship Condition Age at Onset Recorded Date/T victorino Unknown Family Anesthesia Reaction?No Unknown October 02, 2021 10:31am Family Member Type Diagnosis Age At Onset Mother Problem (finding) Cataracts Mother Problem (finding) Arthritis Mother Problem (finding) Thyroid disorder Father Problem (finding) High cholesterol Father Problem (finding) Cataracts Sister Problem (finding) Cataracts Advance Directives Documents on File Type Date 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 Advance Directives and Living Will Power of Telephone Supervisor Advance Directive Response Recorded Date/ Time Advance Directives No December 24, 2020 9:04am Advance Directive Response Recorded Date/ Time Advance Directives No January 9:07am Advance Directive Response Recorded Date/ Time Advance Directives No October 02 10:31am Organ Donor No January 24, 019 4:58pm Power of Telephone Supervisor No October 02 10:31am Tissue Donor No January 24 4:58pm Directive Yes / No Effective Date File Name No Information Assessments Diagnosis Acquired hypothyroidism Unspecified hypothyroidism Mixed hyperlipidemia Chief Complaint and Reason for Visit Chief Complaint SPS.MRIRES Chief Complaint INJECTFU Chief Complaint M48.02,R29.898,R20.2 CAT WITH IOL LEFT EYE (MO 09/24 DD) Additional Source Comments INFORMATION SOURCE (unrecogn ized section and content) DATE CREATED AUTHOR 08/07/2019 [facility] DATE CREATED AUTHOR AUTHOR'S ORGANIZ ATION 08/19/2019 [facility] DATE CREATED AUTHOR AUTHOR'S ORGANIZ ATION 09/04/2021 [facility] DATE CREATED AUTHOR AUTHOR'S ORGANIZ ATION 09/04/2021 [facility] DATE CREATED AUTHOR AUTHOR'S ORGANIZ ATION 2021 [facility] (PR) DATE CREATED AUTHOR AUTHOR'S ORGANIZ ATION 03/02/2022 [facility] DATE CREATED AUTHOR AUTHOR'S ORGANIZ ATION 08/26/2023 [facility] DATE CREATED AUTHOR AUTHOR'S ORGANIZ ATION 12/24/2023 [facility] DATE CREATED AUTHOR AUTHOR'S ORGANIZ ATION 03/01/2024 [facility] Goals (unrecognized section and content) Health Concern Goal Type Priority Status No Information Reason for Visit (unrecogniz ed section and content) Specialty Diagnoses / Procedures Referred By Russell hunter Referred To Contact Diagnoses Macular pucker, left Macular pucker, left [[id number]] Procedures MO VITRECTOMY PARS PLANA REMOVE INT MEMB RETINA VITRECTOMY 25 GAUGE, MEMBRANE PEELING, ICG DYE INJECTION Timbo Shah MD [address] [facility] [address], [address] [place] [address] [facility] [address] [place] [address] Referral ID Status Reason Start Date Expiration Date Visits Re quested Visits Authorized [id number] 1 1 Scheduled Active and Recently Administ ered Medications (unrecognized section and content) Medication Order 08/23/2023 08/24/2023 08/25/2023 sodium chloride flush 0.9 % injection 5-40 mL 5-40 mL, IntraVENous, EVERY 12 HOURS SCHEDULED (2 times per day), First dose on Deirdre 08/25/23 at 1100, Until Discontinued, For Line Patency: Peripheral IV = 5 mL; Midline or Central Line = 10 mL/lumen. If following IV push medication, administer flush at same rate as the IV push. Flush volume is determined by type of infusion therapy being given. For non-viscous solutions use: Peripheral IV = 5 mL Midline or Central Line = 10 mL/lumen For viscous solutions (i.e. blood components, parenteral nutrition, contrast media, or after obtaining blood sample) use: Peripheral IV = 10 mL Midline or Central Line = 20 mL/lumen, PACU only 1100 (Due)2100 (Due) tobramycin-dexAMETHasone (TOBRADEX) ophthalmic suspension 1 drop (COMPLETED) 1 drop, Left Eye, ONCE, 1 dose, On Deirdre 08/25/23 at 0815, Pre-op (day of surgery) 0849 (Given - Provid er: Navid Peres RN) Continuous Medication Order 08/23/2023 08/24/2023 08/25/2023 lactated ringers IV soln infusion (CANCELED) IntraVENous, at 100 mL/hr, CONTINUOUS, Starting on Deirdre 08/25/23 at 0815, Pre-op (day of surgery) 0850 (New Bag - Prov ider: Navid Peres RN)1003 (NoRateChange - Provider: INDIRA Almonte CRNA)1035 (Paused - Provider: INDIRA Almonte CRNA - Comment: Switch to gravity)1036 (Restarted - Provider: INDIRA Almonte CRNA) PRN Medication Order 08/23/2023 08/24/2023 08/25/2023 0.9 % sodium chloride infusion IntraVENous, at 5-250 mL/hr, PRN, if patient receiving piggyback infusions and maintenance fluids are not ordered OR KVO fluids to protect IV site / prevent frequent line interruptions/ long duration, Starting on Deirdre 08/25/23 at 1041, For piggyback infusion, administer at same rate as piggyback for a total of 25 mL. Enter 25 mL into dose field and piggyback rate into rate field of order. If piggyback is infusing at a rate less than 100 mL/hr, enter 25 mL into dose field and 100 mL/hr into rate field of order. For KVO fluids, enter rate of 20 mL/hr or less into rate field of order., PACU only balanced salts plus (BSS) 500 mL (CANCELED) PRN, Starting on Deirdre 6/24 at 1026, Intra-op 1026 (Given - Provid er: Timbo Shah MD - Comment: HANGING INFUSION) balanced salts plus (BSS) ophthalmic solution (CANCELED) PRN, Starting on Deirdre 6/24 at 1030, Intra-op 1030 (Given - Provid er: Timbo Shah MD - Comment: MIXED WITH ICG) BUPivacaine (PF) (MARCAINE) 0.75 % 2.5 mL, lidocaine PF 2 % 2.5 mL (CANCELED) PRN, Starting on Deirdre 624 at 1011, Intra-op 1011 (Given - Provid er: Timbo Shah MD - Comment: GIVEN PRIOR TO PROCEDURE) dextrose 50 % IV solution (CANCELED) PRN, Starting on Deirdre 624 at 1029, Until Deirdre 6//24 at 1051, Intra-op 1029 (Given - Provid er: Timbo Shah MD - Comment: MIXED WITH ICG) erythromycin (ROMYCIN) ophthalmic ointment (CANCELED) PRN, Starting on Deirdre 624 at 1027, Intra-op 1027 (Given - Provid er: Timbo Shah MD - Comment: GIVEN AT END OF PROCEDURE) fentaNYL (SUBLIMAZE) injection 25 mcg 25 mcg, IntraVENous, EVERY 5 MIN PRN, 3 doses, Starting on Deirdre 6/24 at 1041, Until Discontinued, Pain Moderate (4-6), For Phase I. If Phase II oral narcotics have been administered in the last 60 minutes, do not administer IV narcotics unless specifically approved by provider., PACU only gentamicin (GARAMYCIN) injection (CANCELED) PRN, Starting on Deirdre 624 at 1027, Until Deirdre 6//24 at 1051, Intra-op 1027 (Given - Provid er: Timbo Shah MD) indocyanine green (IC-GREEN) syringe (CANCELED) PRN, Starting on Deirdre 24 at 1031, Until Deirdre 624 at 1051, Intra-op 1031 (Given - Provid er: Timbo Shah MD - Comment: DILUTED WITH 1ML OF STERILE WATER, 2ML OF BSS, 2ML OF DEXTROSE TO MAKE 2.5MG/ML) naloxone 0.4 mg in 10 mL sodium chloride syringe IntraVENous, PRN, Opioid Reversal, Starting on Deirdre 08/25/23 at 1041, PRN if respiratory rate is less than 6/min and patient is difficult to arouse then notify physician STAT. Mix 9 mL of sodium chloride 0.9% with 0.4 mg (1 mL) of naloxone (NARCAN) in 10 mL syringe. (Note: dilution is 0.04 mg/mL) Give 0.08 mg (2 mL of special dilution), slow IV push, repeat up to 0.4 mg (10 mL) or until patient is responsive to physical stimulation and respiratory rate is equal to or greater than 6 breaths/min. Continue to observe, if no response within 3 minutes of administration of 0.4 mg (10 mL) total, repeat dose (0.4 mg as administered previously). Concentration 0.04 mg/mL, PACU only phenylephrine (SHARON-SYNEPHRINE) 10 % ophthalmic solution 1 drop (COMPLETED) 1 drop, Left Eye, EVERY 5 MIN PRN, 3 doses, Starting on Deirdre 08/25/23 at 0753, Until Discontinued, Irritation, Pre-op (day of surgery) 0830 (Given - Provid er: Navid Peres RN)0841 (Given - Provider: Navid Peres RN)0849 (Given - Provider: Navid Peres RN) sodium chloride flush 0.9 % injection 5-40 mL 5-40 mL, IntraVENous, PRN, Starting on Deirdre 24 at 1041, Until Discontinued, Line Care, After every IV line use, For Line Patency: Peripheral IV = 5 mL; Midline or Central Line = 10 mL/lumen. If following IV push medication, administer flush at same rate as the IV push. Flush volume is determined by type of infusion therapy being given. For non-viscous solutions use: Peripheral IV = 5 mL Midline or Central Line = 10 mL/lumen For viscous solutions (i.e. blood components, parenteral nutrition, contrast media, or after obtaining blood sample) use: Peripheral IV = 10 mL Midline or Central Line = 20 mL/lumen, PACU only sterile water injection (CANCELED) PRN, Starting on Deirdre 08/25/23 at 1029, Until Deirdre 08/25/23 at 1051, Intra-op 1029 (Given - Provid er: Timbo Shah MD - Comment: MIXED WITH ICG) tropicamide (MYDRIACYL) 1 % ophthalmic solution 1 drop (COMPLETED) 1 drop, Left Eye, EVERY 5 MIN PRN, 3 doses, Starting on Deirdre 08/25/23 at 0753, Until Discontinued, senior microsoft consultant to OR, Pre-op (day of surgery) 0830 (Given - Provid er: Navid Peres RN)0841 (Given - Provider: Navid Peres RN)0849 (Given - Provider: Navid Peres RN) tropicamide (MYDRIACYL) 1 % ophthalmic solution (CANCELED) PRN, Starting on Deirdre 08/25/23 at 1029, Until Deirdre 08/25/23 at 1051, Intra-op 1029 (Given - Provid er: Timbo Shah MD - Comment: GIVEN AT END OF PROCEDURE) Care Teams (unrecognized sec tion and content) Building Analyst/Supervisor Relationship Specialty Start Date End Date Priscilla Vanegas MD [address] [place] [address] PCP - General Family Medicine 08/25/23 FOR RECORDS PERTAINING TO PATIENTS WHO ARE [...] BE BASED ON THE PRIMARY CLINICAL RECORDS. [employer] [facility]. provides no warranty or guarantee of the accuracy or completeness of information in this document.
--- OUTSIDE RECORDS SUMMARY | 2024-11-11 15:26 | XMS_ITS | Clinical Summary ---
Author Organization [facility] Address [address], [address] [place] [address] Care Team Providers Care Pigment Pumper Name Role Phone Luca Vanegas MD Primary Care Provider [phone] Allergies Active Allergy Reactions Criticality Noted Date Comments Cefdinir 11/16/2018 Medications Acetaminophen (TYLENOL) 325 MG CAPS Take by mouth Active Coenzyme Q10 (CO Q-10 MAXIMUM STRENGTH) 400 MG CAPS Take by mouth Active NONFORMULARY CBD OIL Active diclofenac sodium (VOLTAREN) 1 % GEL Apply 4 g topically 4 times daily 2 Tube 5 08/06/19 Active Additional Information Patient not taking.Reported on 08/25/2023 Vitamin D (CHOLECALCIFEROL) 25 MCG (1000 UT) TABS tablet Take 1 tablet by mouth daily Active meloxicam (MOBIC) 7.5 MG tablet Take 1 tablet by mouth daily as needed for Pain 30 tablet 03/30/19 Active Additional Information Patient not taking.Reported on 08/25/2023 moxifloxacin (VIGAMOX) 0.5 % ophthalmic solution INSTILL 1 DROP INTO THE LEFT EYE THREE TIMES DAILY BEGINNING 2 DAYS BEFORE SURGERY 09/10/19 22 Active LOTEMAX SM 0.38 % GEL instill 1 drop INTO LEFT EYE THREE TIMES DAILY DIRECTED AFTER SURGERY 09/10/19 22 Active PROLENSA 0.07 % SOLN INSTILL 1 DROP INTO THE LEFT EYE ONCE DAILY BEGINNING 2 DAYS BEFORE SURGERY 09/11/19 22 Active simvastatin (ZOCOR) 20 MG tabletIndications: Mixed hyperlipidemia take 1 tablet by mouth every evening 90 tablet 1 09/22/19 22 Active levothyroxine (SYNTHROID) 75 MCG tabletIndications: Acquired hypothyroidism take 1 tablet by mouth once daily 90 tablet 1 09/22/19 22 Active amLODIPine (NORVASC) 2.5 MG tabletIndications: Essential hypertension take 1 tablet by mouth twice a day 180 tablet 12/19/19 22 Active Cyanocobalamin (VITAMIN B 12 PO) Take 1 tablet by mouth daily Active Probiotic Product (PROBIOTIC DAILY PO) Take 1 tablet by mouth daily Active Magnesium 400 MG TABS Take 1 tablet by mouth Daily Takes 420 Active pantoprazole (PROTONIX) 40 MG tablet Take 1 tablet by mouth daily Active Active Problems Problem Noted Date Diagnosed Date Macular pucker, left eye 08/25/2023 Hypertension 11/23/2018 Osteoarthritis 11/23/2018 Immunizations Immunization Administration Dates Next Due Influenza Vaccine, unspecifi ed formulation 12/08/2016,12/09/2015,11/06/2014,2013 Influenza Virus Vaccine 12/08/2016,12/08,11/06/2014,2013 Influenza, FLUAD, (age 65 y+ ), IM, Quadv, 0.5mL 02/21/2020 Influenza, FLUZONE High Dose , (age 65 y+), IM, Trivalent PF, 0.5mL 12/01/2017 Pneumococcal, PCV-13, PREVNA R 13, (age 6w+), IM, 0.5mL 08/21/2019 Pneumococcal, PPSV23, PNEUMO VAX 23, (age 2y+), SC/IM, 0.5mL 06/02/2017 Family History Medical History Relation Name Comments Heart Disease Father Colon Cancer Sister 1 Cancer Sister 2 unknown female type of cancer per patient Relation Name Status Comments Father Mother Sister 1 Sister 2 Alive Social History Tobacco Use Types Packs/Day Years Used Date Smoking Tobacco: Former Cigarettes 0.3 14 1 04/09/2005 - 02/07/2020 Smokeless Tobacco: Never Tobacco Cessation:Counseling Given: Not Answered Alcohol Use Standard Drinks/Week Comments Not Currently 0 (1 standard drink = 0.6 oz pur e alcohol) AUDIT-C Answer Date Recorded Q1: How often do you have a drink containing alc ohol? Monthly or less 09/21/2021 Q2: How many drinks containi ng alcohol do you have on a typical day when you are drinking? 1 or 2 09/21/2021 Q3: How often do you have si x or more drinks on one occasion? Never 09/21/2021 Overall Financial Resource Strain (CARDIA) Answe r Date Recorded How hard is it for you to pa y for the very basics like food, housing, medical care, and heating? Patient declined 02/21/2020 PHQ-2 Answer Date Recorded PHQ-9 Total Score 0 09/21/2021 Exercise Vital Sign Answer Date Recorde d On average, how many days pe r week do you engage in moderate to strenuous exercise (like a brisk walk)? 3 days 09/21/2021 On average, how many minutes do you engage in exercise at this level? 20 min 09/21/2021 Hunger Vital Sign Answer Date Recorded Within the past 12 months, y ou worried that your food would run out before you got the money to buy more. Patient declined Within the past 12 months, t he food you bought just didn't last and you didn't have money to get more. Patient declined PRAPARE - Transportation Answer Date Re corded In the past 12 months, has l ack of transportation kept you from medical appointments or from getting medications? Patient declined 02/21/2020 In the past 12 months, has l ack of transportation kept you from meetings, work, or from getting things needed for daily living? Patient declined 02/21/2020 Comments No Sex and Gender Information Value Date Recorded Sex Assigned at Not on file Legal Sex Female 5:33 PM EDT Gender Identity Not on file Sexual Orientation Not on file Last Filed Vital Signs Vital Sign Reading Time Taken Comments Blood Pressure 157/77 08/25/2023 11:15 AM EDT Pulse 70 08/25/2023 11:15 AM EDT Temperature 36.5 C (97.7 F) 08/25/2023 11:15 AM EDT Respiratory Rate 18 08/25/2023 11:15 AM EDT Oxygen Saturation 98% 08/25/2023 11:15 AM EDT Inhaled Oxygen Concentration - - Weight 45.4 kg (100 lb) 08/25/2023 8:25 AM EDT Height 160 cm (5' 3 ) 08/25/2023 8:25 AM EDT Body Mass Index 17.71 08/25/2023 8:25 AM EDT Plan of Treatment Health Maintenance Due Date Last Done Comments Depression Screen 1957 DTaP/Tdap/Td vaccine (1 - Tdap) 12/05/1962 Shingles vaccine (1 of 2) 12/05/1993 DEXA (modify frequency per FRAX score) 12/05/1998 Respiratory Syncytial Virus (RSV) or age 60 yrs+ (1 - 1-dose 75+ series) 12/05/2018 Lipids 09/03/2022 09/03/2021, 08/05, 02/18/2020, Additional history exists COVID-19 Vaccine ( season) 2023 Annual Wellness Visit (Medicare Advantage) 03/07/2024 09/21/2021, 02/21/2020 Flu vaccine (#1) 10/05/2024 02/21/2020, , 12/08/2016, Additional history exists FIT/FOBT: Average risk Discontinued 12/10/2017 Pneumococcal 50+ years Vaccine Completed 08/21/2019, 06/02/2017 Hepatitis A vaccine Aged Out No longe r eligible based on patient's age to complete this topic Hepatitis B vaccine Aged Out No longe r eligible based on patient's age to complete this topic Hib vaccine Aged Out No longer eligi ble based on patient's age to complete this topic Meningococcal (ACWY) vaccine Aged Out No longer eligible based on patient's age to complete this topic Meningococcal B vaccine Aged Out No l onger eligible based on patient's age to complete this topic Polio vaccine Aged Out No longer elig ible based on patient's age to complete this topic Procedures Procedure Name Priority Date/Time Associated Diagnosis Comments LIPID PANEL Routine 09/03/2021 11:47 AM EDT Mixed hyperlipidemia FECAL BLOOD IMMUNOCHEMICAL TEST Routine 12/10/2017 from Last 3 Months or Most Recently Relevant to Health Maintenance Results * (ABNORMAL) Lipid Panel (09/03/2021 11:47 AM EDT) Cholesterol, Total 210(H) 0 - 199 mg/dL 09/03/2021 9:16 PM EDT [facility] Triglycerides 86 0 - 149 mg/dL 09/03/2021 9:16 PM EDT [facility] HDL 95 >40 mg/dL 09/03/2021 9:16 PM EDT [facility] LDL Calculated 98 0 - 99 mg/dL 09/03/2021 9:16 PM EDT [facility] VLDL Cholesterol Calculated 17 mg/dL 09/03/2021 9:16 PM EDT [facility] BLOOD SPECIMEN / Unknown 09/03/2021 11:47 AM EDT 09/03/2021 8:56 PM EDT Gretchen De La Cruz DO CHEMISTRY ORDERABLES Final Result [facility] [id number], [facility] [phone] * Fecal Blood Immunochemical Test (12/10/2017) STOOL SPECIMEN / Unknown 12/10/2017 Historical Provider BODY FLUIDS AND STOOLS OR DERABLES Final Result from Last 3 Months or Most Recently Relevant to Health Maintenance Insurance [employer] MEDICARE Care Teams Pigment Pumper Relationship Specialty Start Date End Date Luca Vanegas MD [address] [place] [address] PCP - General Family Medicine 08/25/23
--- OUTSIDE RECORDS SUMMARY | 2024-11-11 15:26 | XMS_ITS | Encounter Summary ---
Author Organization [facility] Address [address] [facility] [address] [place] [address] Care Team Providers Care Divisional Merchandising Manager Name Role Phone Luca Vanegas MD Primary Care Provider [phone] Reason for Visit * Reason Comments Medication Refill Encounter Details Date Type Department Care Team (Late st Contact Info) Description 12/01/2018 Refill [facility] Primary Care [address] [place] [address] Gretchen De La Cruz DO [address] [place], [place] [id number] Medication Refill Social History Tobacco Use Types Packs/Day Years Used Date Smoking Tobacco: Every Day Cigarettes 0.3 14 Smokeless Tobacco: Never Alcohol Use Standard Drinks/Week Comments Yes 0 (1 standard drink = 0.6 oz pur e alcohol) AUDIT-C Answer Date Recorded Frequency of Alcohol Consumption Monthly or less 11/23/2018 Average Number of Drinks 1 or 2 019 Frequency of Binge Drinking Not on file 11/05 PHQ-2 Answer Date Recorded PHQ-2 Score 0 11/23/2018 Comments No Sex and Gender Information Value Date Recorded Sex Assigned at Not on file Legal Sex Female 5:33 PM EDT Gender Identity Not on file Sexual Orientation Not on file documented as of this encounter Plan of Treatment Not on file documented as of this encounter Visit Diagnoses Diagnosis Mixed hyperlipidemia Essential hypertension Unspecified essential hypertension Acquired hypothyroidism Unspecified hypothyroidism documented in this encounter Additional Health Concerns Assessment Noted Time A fall risk assessment has been complete d for the patient 11/23/2018 1:53 PM EDT documented as of this encounter Care Teams Divisional Merchandising Manager Relationship Specialty Start Date End Date Luca Vanegas MD [address] [place] [address] PCP - General Family Medicine 08/25/23 documented as of this encounter
--- OUTSIDE RECORDS SUMMARY | 2024-11-11 15:26 | XMS_ITS | Patient Health Record ---
Author Organization [facility] Address [address] [place] [address] Care Team Providers Care Field Service Specialist Name Role Phone Jass Harrington Unavailable [phone] Reason For Referral No Information Medications Medication SIG (Take, Route, Fr equency, Duration) Notes Start Date End Date Status pantoprazole 40 mg TAKE 1 TABLET BY HUNTER TH EVERY DAY IN THE EVENING for 90 Days Activ e simvastatin 20 mg TAKE 1 TABLET BY HUNTER TH EVERY DAY IN THE EVENING for 90 Days Activ e pantoprazole 40 mg for 90 Days Active Social History Tobacco Use: Social History Observation [...] alcohol in the p ast year? No Plan Of Treatment Pending Test Test Name Order Date SCC- ELBOW 3 VIEW RIGHT [id number] 08/08/2023 SCC- ELBOW 3 VIEW RIGHT [id number] 09/05/2023 SCC- ELBOW 3 VIEW RIGHT [id number] 10/17/2023 SCC- PT/OT EVAL AND TREAT 3X/WEEK FOR 6 WEEKS 10/17/2023 Insurance Providers Payer Name Payer Address Payer Phone Subscriber Number Group Number Insured Name Patient Relationship to Insured Coverage Start Date Coverage End Date Medicare [employer] [address] [place] [phone] [id number] AVELAR, CRISTINE Self - patient is the insured Medical (General) History Medical History History ICD Code Anxiety: Yes Chronic back pain:: Yes CPAP Machine:: No Healthcare worker: Yes High Blood Pressure: Yes Hypothyroidism: Yes Irritable bowel syndrome: Yes Latex Allergy: No Osteoarthritis: Yes Thyroid disease: Yes Have you been in close conta ct with someone who has had MRSA within the last year?: No Have you ever had or presently have MRSA ?: No Have you been seen by a dentist in the l ast year?: No Do you have any dental probl ems i.e. Broken, loose, or chipped teeth, absess, gum disease?: No
--- OUTSIDE RECORDS SUMMARY | 2024-11-11 15:27 | XMS_ITS | Encounter Summary ---
Author Organization [facility] Address [address] [place] [address] Care Team Providers Care Director Of Global Sales Name Role Phone Luca Vanegas MD Primary Care Provider [phone] Reason for Visit * Reason Comments Medication Refill Encounter Details Date Type Department Care Team (Late st Contact Info) Description 11/13/2020 Refill [facility] Primary Care [address] [place] [address] Gretchen De La Cruz DO [address] [place] [address] Medication Refill Social History Tobacco Use Types Packs/Day Years Used Date Smoking Tobacco: Former Cigarettes 0.3 14 1 04/09/2005 - 02/07/2020 Smokeless Tobacco: Never Alcohol Use Standard Drinks/Week Comments Yes 0 (1 standard drink = 0.6 oz pur e alcohol) AUDIT-C Answer Date Recorded Frequency of Alcohol Consumption Monthly or less 11/23/2018 Average Number of Drinks 1 or 2 019 Frequency of Binge Drinking Not on file 11/05 Overall Financial Resource Strain (CARDIA) Answe r Date Recorded How hard is it for you to pa y for the very basics like food, housing, medical care, and heating? Patient declined 02/21/2020 PHQ-2 Answer Date Recorded PHQ-9 Total Score 0 08/18/2020 Hunger Vital Sign Answer Date Recorded Within [...] documented as of this encounter Visit Diagnoses Not on filedocumented in this encounter Additional Health Concerns Assessment Noted Time A fall risk assessment has been complete d for the patient 02/21/2020 4:45 PM EST documented as of this encounter Care Teams Director Of Global Sales Relationship Specialty Start Date End Date Luca Vanegas MD [address] [place] [address] PCP - General Family Medicine 08/25/23 documented as of this encounter
--- NOTE | 2024-11-11 16:13 | CT_ITS ---
The [address] [address] Patient Name: CRISTIEN AVELAR MRN: [id number] date: 1945 Sex: F Assigned Patient Location: ER Current Patient Location: ED.MAIN Accession/Order Number: [id number] Exam Date: 11/11/2024 16:44 Report Date: 11/11/2024 17:36 At the request of: SVETA BERGMAN DO Procedure: CT head/brain wo con CT BRAIN WITHOUT CONTRAST: CLINICAL HISTORY: dizziness, facial numbness, also sinusitis COMPARISON: MRI 08/20/2024 TECHNIQUE: Contiguous axial unenhanced images were obtained through the brain. This CT exam was performed using one or more following dose reduction techniques: Automated exposure control, adjustment of the mA and/or kV according to patient size, or use of iterative reconstruction technique. FINDINGS: There is no evidence of midline shift, intra or extra-axial fluid collection, hemorrhage or CT evidence of stroke. Cortical atrophy with chronic microvascular ischemic changes similar to the prior study. Posterior fossa appears unremarkable. Visualized intraorbital contents demonstrate no acute findings. Visualized paranasal sinuses are clear. The surrounding soft tissues are normal. CT/CT head/brain wo con IMPRESSION: NO ACUTE INTRACRANIAL ABNORMALITY. Impression dictated by: Kody Pedersen Jr., D.O. 11/11/2024 5:36 PM [facility] Electron[facility] by: [id number] Y Date: 11/11/2024 17:36
--- NOTE | 2024-11-11 16:13 | ECG_ITS ---
The [facility] Test Date: 2024-11-11 Pat Name: CRISTINE AVELAR Department: Room: - Gender: Female Director Nicu: : 1945 Requested By: PRISCILLA MARSHALL Order Number: [id number] Reading MD: QUIQUE GRACIA Measurements Intervals [place] Rate: 69 P: 74 UT: 178 QRS: 64 QRSD: 80 T: 49 QT: 412 QTc: 432 Interpretive Statements 1100 Sinus rhythm 9110 normal ECG No previous ECG available for comparison Electronically Signed On 11-12-2024 19:01:12 EDT by QUIQUE GRACIA
--- NOTE | 2024-11-11 16:43 | ED.GENADUL1 ---
HPI HPI - General Adult General Chief complaint: Upper Respiratory Infection Stated complaint: Upper Respiratory Infection Time Seen by Provider: 11/11/24 15:37 Source: patient Mode of arrival: walk-in Limitations: no limitations History of Present Illness HPI narrative: Patient is an 78-year-old female presenting to the emergency department for multiple complaints. Patient states that she has been having dizzy spells for the last few months. She states she had a CT of her head back in July, which was normal. She states that intermittently she becomes lightheaded, but never loses consciousness. She cannot identify an exact inciting factor that causes her dizziness to be worse. Additionally, she believes she has a sinus infection. She states she has some pressure and change in sensation behind the bilateral eyes. She denies any visual changes. No hearing changes. No significant headaches, weakness in extremities, paresthesias, or other neurologic complaints. She denies any current chest pain or shortness of breath. No abdominal pain, nausea, or vomiting. No dysuria or hematuria. Related Data Home Medications ?Medication ?Instructions ?Recorded ?Confirmed amlodipine 2.5 mg tablet 2.5 mg PO DAILY 07/27/23 11/11/24 levothyroxine 75 mcg tablet 75 mcg PO DAILY 07/27/23 11/11/24 pantoprazole 40 mg tablet,delayed 40 mg PO DAILY 07/27/23 11/11/24 release simvastatin 20 mg tablet 20 mg PO BEDTIME 07/27/23 11/11/24 Previous Rx's ?Medication ?Instructions ?Recorded amoxicillin 500 mg tablet 500 mg PO Q8H 5 days #15 tabs 11/11/24 Allergies Allergy/AdvReac Type Severity Reaction Status Date / Time No Known Drug Allergies Allergy Verified 11/11/24 15:37 Opioid HPI Opioid Management Most Recent Opioid Data: Last Pain Scale 7 Today, 15:37 Review of Systems ROS Status of ROS 10 or more systems reviewed and unremarkable except as noted in history and below [facility] Medical History (Updated 11/11/24 @ 17:17 by Jaime Cisse DO) Hypothyroidism ?E03.9 - Hypothyroidism, unspecified (ICD-10) Chronic hypertension ?I10 - Essential (primary) hypertension (ICD-10) Social History Little interest or pleasure in doing things: not at all Feeling down, depressed, or hopeless: not at all Exam Narrative Exam Narrative: CONSTITUTIONAL: Well-appearing, answering questions and following commands appropriately SKIN: Was warm and dry. EYES: No scleral icterus. No conjunctival exudates. EARS, NOSE, THROAT: Neck was supple. There was no jugular venous distention. Mild sinus tenderness bilaterally. No rhinorrhea. No tonsil enlargement or exudates. RESPIRATORY: Clear to auscultation bilaterally, no wheezes, crackles, or stridor, no use of accessory muscles CARDIOVASCULAR: Normal rate and regular rhythm. There is no S3, S4, murmur, rub. Radial pulses are 2+ and symmetrical. GASTROINTESTINAL: Abdomen was soft, non-tender, and non-distended. There is no guarding or rebound tenderness MUSCULOSKELETAL: There was no lower extremity edema, erythema, or tenderness. NEUROLOGIC: Patient is alert and oriented to person place and time with normal speech. Memory is normal and thought process is intact. Sensation: sensation to light touch is intact bilaterally in upper and lower extremities. Motor: Good muscle tone. Strength is 5/5 bilaterally in the upper and lower extremities. Cerebellar: Finger to nose intact. Patient has a normal gait without ataxia. Cranial Nerves: Pupils are round, reactive to light and accommodation. Extraocular movements are intact without ptosis. No nystagmus. Facial sensation intact bilaterally to light touch in the V1, V2, V3 distribution. Facial muscle strength is normal and equal bilaterally. Hearing is normal bilaterally. Palate and uvula elevate symmetrically. Shoulder shrug strong and equal bilaterally. Tongue protrudes midline and moves symmetrically. Constitutional Vital Signs, click to edit/add: Last Vital Signs Temp 99 F 11/11/24 15:37 Pulse 64 11/11/24 17:40 Resp 13 11/11/24 17:40 BP 170/81 H 11/11/24 16:32 Pulse Ox 98 11/11/24 15:37 O2 Del Method Room Air 11/11/24 15:37 Course Vital Signs Vital signs: Vital Signs Temperature 99 F 11/11/24 15:37 Pulse Rate 72 11/11/24 15:37 Respiratory Rate 18 11/11/24 15:37 Blood Pressure 176/91 H 11/11/24 15:37 Pulse Oximetry 98 11/11/24 15:37 Oxygen Delivery Method Room Air 11/11/24 15:37 Temperature 99 F 11/11/24 15:37 Pulse Rate 64 11/11/24 17:40 Respiratory Rate 13 11/11/24 17:40 Blood Pressure 170/81 H 11/11/24 16:32 Pulse Oximetry 98 11/11/24 15:37 Oxygen Delivery Method Room Air 11/11/24 15:37 Medical Decision Making [facility] Narrative Medical decision making narrative: Patient is an 78-year-old female, history only significant for hypothyroidism and hypertension, presenting to the emergency department with 6 months history of intermittent episodes of lightheadedness/dizziness and 2 weeks of sinus pressure. Her vital signs are significant for hypertension, otherwise were within normal limits. She is afebrile and hemodynamically stable. Patient has a normal physical examination other than mild tenderness throughout the bilateral frontal/maxillary sinuses. Differential diagnose include sinusitis, viral syndrome, BPPV, ACS, arrhythmia, intracranial space-occupying lesion, or other electrolyte/metabolic derangement. IV was established and laboratory studies were obtained. CT head without contrast was ordered. 12 Lead EKG: Normal sinus rhythm at a rate of 69. Normal axis. No ST segment elevations. QRS, LA, and QTc interval within normal limits. Final impression: normal sinus rhythm without evidence of acute myocardial ischemia CT head independently reviewed/interpreted by myself demonstrated no acute intracranial pathology or hemorrhage. Laboratory studies were unremarkable. No significant electrolyte or metabolic derangement. No evidence of acute kidney injury. No anemia, leukocytosis, or thrombocytopenia. Troponin nonelevated. I do believe the patient is stable for discharge at this time. Patient's presentation is most likely consistent with sinusitis, chronic dizzy spells. They were instructed to follow up with her PCP, who she has appointment with scheduled for next week. Return precautions were given including any new or worsening symptoms. They were given a prescription for amoxicillin for sinusitis. Patient understands and agrees to the plan. FINAL IMPRESSION: #Acute sinusitis #Chronic episodes of dizziness DISPOSITION: Discharged home CONDITION: Good Medical Records Medical records reviewed: Yes I reviewed the patient's medical records Lab Data Lab results reviewed: Yes I reviewed the patient's lab results Labs: Lab Results 11/11/24 Range/Units 16:40 WBC 5.0 (4.0-11.0) 10^3/uL RBC 4.36 (4.20-5.40) 10^6/uL Hgb 13.5 (12.0-16.0) g/dL Hct 41.2 (36.0-48.0) % MCV 94.5 (81.0-99.0) fL MCH 31.0 (26.7-34.0) pg MCHC 32.8 (29.9-35.2) g/dL RDW 11.9 (11.0-15.0) % Plt Count 272 (150-450) 10^3/uL MPV 10.7 (9.5-13.5) fL Sodium 142 (136-145) mmol/L Potassium 4.1 (3.5-5.1) mmol/L Chloride 102 (98-107) mmol/L Carbon Dioxide 33.0 H (21.0-32.0) mmol/L Anion Gap 11.1 BUN 16.0 (7.0-18.0) mg/dL Creatinine 0.80 (0.55-1.02) mg/dL Est GFR ( Amer) >60 (>=60 mL/min/1.73m^2) Est GFR (Non-Af Amer) >60 (>=60 mL/min/1.73m^2) BUN/Creatinine Ratio 20.0 Glucose 92 (74-106) mg/dL Calcium 9.6 (8.5-10.1) mg/dL Troponin I High Sens 7.8 (4.0-51.3) pg/mL Imaging Data CT scan - head: Attestation: I personally reviewed and interpreted this imaging study as follows: Radiologist's impression: ITS Impressions Head CT 11/11/24 16:13 IMPRESSION: NO ACUTE INTRACRANIAL ABNORMALITY. Impression dictated by: Kody Pedersen Jr., D.O. 11/11/2024 5:36 PM Dictation Location: [place] [address] Electronically authenticated by: [id number] Y Date: 11/11/2024 17:36 Discharge Plan Discharge Chief Complaint: Upper Respiratory Infection Clinical Impression: Sinusitis Patient Disposition: Home, Self-Care Time of Disposition Decision: 17:17 Condition: Good Mode of Transportation: Private Vehicle Prescriptions / Home Meds: New amoxicillin 500 mg tablet 500 mg PO Q8H 5 Days Qty: 15 0RF No Action amlodipine 2.5 mg tablet 2.5 mg PO DAILY levothyroxine 75 mcg tablet 75 mcg PO DAILY pantoprazole 40 mg tablet,delayed release (DR/EC) 40 mg PO DAILY simvastatin 20 mg tablet 20 mg PO BEDTIME Print Language: Chinese Instructions: Sinusitis (ED) Referrals: Luca Vanegas MD [Primary Care Provider, Family Practice] - 1 week
[2024-11-11 16:44] LABS: Hematocrit 41.2 % (36.0-48.0); Hemoglobin 13.5 g/dL (12.0-16.0); Mean Corpuscular HGB Conc 32.8 g/dL (29.9-35.2); Mean Corpuscular Hemoglobin 31.0 pg (26.7-34.0); Mean Corpuscular Volume 94.5 fL (81.0-99.0); Platelet Count 272 10^3/uL (150-450); Red Blood Count 4.36 10^6/uL (4.20-5.40); White Blood Count 5.0 10^3/uL (4.0-11.0)
[2024-11-11 17:02] LABS: Anion Gap 11.1; Blood Urea Nitrogen 16.0 mg/dL (7.0-18.0); Calcium 9.6 mg/dL (8.5-10.1); Carbon Dioxide 33.0 mmol/L (21.0-32.0); Chloride 102 mmol/L (98-107); Estimated GFR (African America >60 (>=60 mL/min/1.73m^2); Estimated GFR (Non-African Ame >60 (>=60 mL/min/1.73m^2); Glucose 92 mg/dL (74-106); Potassium 4.1 mmol/L (3.5-5.1); Sodium 142 mmol/L (136-145)
== END 2024-11-11 18:21 | disposition home or self-care (01) ==
PROVIDERS: Emergency Provider Student in an Organized Health Care Education/Training Program; PCP Family Medicine
DX: J32.9 Chronic sinusitis, unspecified (principal); E03.9 Hypothyroidism, unspecified; I10 Essential (primary) hypertension
CPT/HCPCS: 36415; 70450; 80048; 84484; 85027; 93005; 99285

== ENCOUNTER 2024-12-04 12:54 | Outpatient (OUT) | payer OTHER, SELFPAY ==
--- OUTSIDE RECORDS SUMMARY | 2023-08-08 06:40 | XMS_ITS ---
Author Organization [facility] Address [address] [place] [address] Care Team Providers Care Travel Registered Nurse Nicu Name Role Phone Jass Harrington Unavailable [phone] Robertandie Kate Unavailable [phone] REASON FOR VISIT right radial head fx, [...] Encounters Encounter Location Date Provider Diagnosis [facility] [address] [place] [address] [place] [address] 08/08/2023 Kate Dumont Closed nondisplaced fracture of [...] Order Date SCC- ELBOW 3 VIEW RIGHT [id number] 08/08/2023 Next Appt Details Follow Up: 4 Weeks, Reason: Progress Notes * CRISTINE AVELAR LDOB: [birth year] (78 yo F)Acc No.[id number]:08/08/2023 Patient: CRISTINE GARCIA Provider: TERRY Carney :1945 A ge:77 Y S ex:Female Date:08/08/2023 Address:[facility] [address], [facility] Subjective: * Chief Complaints: * 1 [...] as compared contralaterally. Patient has a 5/5 international marketing specialist strength bilaterally. Skin is intact to the [...] Electronic signature of Casa Dumont PA-C on 12/04/2024 at 12:56 PM EDT Sign off status: Pending * Provider: TERRY Carney Date: 0 08/08/2023 Generated for Aide borrero/Yana/Elizabeth on: 0 12/04/2024 12:56 PM EDT History and Physical Notes * [...] as compared contralaterally. Patient has a 5/5 international marketing specialist strength bilaterally. Skin is intact to the right elbow with no erythema or warmth. X-ray Imaging Studies 3V rig ht elbow x-rays taken in office today and reviewed interpreted by myself as a nondisplaced radial head fracture. No other fracture or dislocation noted.
--- OUTSIDE RECORDS SUMMARY | 2024-12-04 12:56 | XMS_ITS | Patient Health Record ---
Author Organization [facility] Address [address] [place] [address] Care Team Providers Care Network Operations Technician Name Role Phone Jass Harrington Unavailable [phone] Reason For Referral No Information Medications Medication [...] Order Date [facility]- ELBOW 3 VIEW RIGHT [id number] 08/08/2023 [facility]- ELBOW 3 VIEW RIGHT [id number] 09/05/2023 [facility]- ELBOW 3 VIEW RIGHT [id number] 10/17/2023 [facility]- PT/OT EVAL AND TREAT 3X/WEEK FOR 6 WEEKS 10/17/2023 Insurance Providers Payer Name Payer Address Payer Phone Subscriber Number Group Number Insured Name Patient Relationship to Insured Coverage Start Date Coverage End Date Medicare [employer] [address] [place] [phone] [id number] AVELAR, CRISTINE Self - patient is the [...]
--- OUTSIDE RECORDS SUMMARY | 2024-12-04 12:58 | XMS_ITS | Encounter Summary ---
Author Organization [facility] Address [address] [place] [address] Care Team Providers Care Mandarin Chinese Teacher Name Role Phone Luca Vanegas MD Primary Care Provider [phone] Reason for Visit * Reason Comments Medication Refill Encounter Details Date Type Department Care Team (Late st Contact Info) Description 11/13/2020 Refill [facility] Primary Care [address] [place] [address] Gretchen De La Cruz DO [address] [place] [address] Medication Refill Social History Tobacco Use Types [...] documented as of this encounter Care Teams Mandarin Chinese Teacher Relationship Specialty Start Date End Date Luca Vanegas MD [address] [place] [address] PCP - General Family Medicine 08/25/23 documented as of this encounter
--- OUTSIDE RECORDS SUMMARY | 2024-12-04 12:58 | XMS_ITS | Encounter Summary ---
Author Organization [facility] Address [address], [facility] [address] [place] [address] Care Team Providers Care Marketing Outreach Coordinator Name Role Phone Luca Vanegas MD Primary Care Provider [phone] Reason for Visit * Reason Comments Medication Refill Encounter Details Date Type Department Care Team (Late st Contact Info) Description 12/01/2018 Refill [facility] Primary Care [address] [place] [address] Gretchen De La Cruz DO [address] [place], [place] [id number] Medication Refill Social History Tobacco Use Types [...] documented as of this encounter Care Teams Marketing Outreach Coordinator Relationship Specialty Start Date End Date Luca Vanegas MD [address] [place] [address] PCP - General Family Medicine 08/25/23 documented as of this encounter
--- OUTSIDE RECORDS SUMMARY | 2024-12-04 12:58 | XMS_ITS | Clinical Summary ---
Author Organization [facility] Address [address], [address] [place] [address] Care Team Providers Care Enterostomal Nurse Name Role Phone Luca Vanegas MD Primary [...] 09/03/2022 09/03/2021, 08/05, 02/18/2020, Additional history exists Annual Wellness Visit (Medicare Advantage) 03/07/2024 09/21/2021, 02/21/2020 Flu vaccine (#1) 10/05/2024 02/21/2020, , 12/08/2016, Additional history exists COVID-19 Vaccine ( season) 2024 FIT/FOBT: Average risk Discontinued 12/10/2017 Pneumococcal 50+ [...] - 199 mg/dL 09/03/2021 9:16 PM EDT [facility] Triglycerides 86 0 - 149 mg/dL 09/03/2021 9:16 PM EDT [facility] HDL 95 >40 mg/dL 09/03/2021 9:16 PM EDT [facility] LDL Calculated 98 0 - 99 mg/dL 09/03/2021 9:16 PM EDT [facility] VLDL Cholesterol Calculated 17 mg/dL 09/03/2021 9:16 PM EDT [facility] BLOOD SPECIMEN / Unknown 09/03/2021 11:47 AM EDT 09/03/2021 8:56 PM EDT Gretchen De La Cruz DO CHEMISTRY ORDERABLES Final Result [facility] B[facility]S AT [facility] [address] [place] [id number], [id number] [phone] * Fecal Blood Immunochemical Test (12/10/2017) STOOL SPECIMEN / Unknown 12/10/2017 Historical Provider BODY FLUIDS AND STOOLS OR DERABLES Final Result from Last 3 Months or Most Recently Relevant to Health Maintenance Insurance [employer] MEDICARE Care Teams Enterostomal Nurse Relationship Specialty Start Date End Date Luca Vanegas MD [address] [place] [address] PCP - General Family Medicine 08/25/23
--- NOTE | 2024-12-04 13:00 | CA_ITS ---
Patient Name: CRISTINE AVELAR MR#: [id number] : 1945 Exam Date: 12/04/2024 Ordering Doctor: DR PRISCILLA MARSHALL . ECHOCARDIOGRAM REPORT PROCEDURE: CA ECHO DOPPLER COMPLETE INDICATIONS: Near syncope COMPARISON: None. DESCRIPTION: COMPLETE ECHOCARDIOGRAM Real-time transthoracic echocardiography with 2D, M-mode, spectral and color flow Doppler performed. QUALITY: Technical quality was good. LEFT VENTRICLE: Normal chamber size. Normal wall thickness. Global left ventricular systolic function is normal. LV EF: Estimated left ventricular ejection fraction is 60-65%. DIASTOLIC: Diastolic function is indeterminate. ATRIAL SEPTUM: LEFT ATRIUM: Mild dilatation. RIGHT ATRIUM: Normal chamber size. RIGHT VENTRICLE: Normal chamber size. Normal right ventricular systolic function. TRICUSPID VALVE: Normal mobility and thickness. No stenosis with mild regurgitation. No evidence of pulmonary hypertension. RVSP 27 mmHg MITRAL VALVE: Mildly thickened with normal mobility. No evidence of mitral valve stenosis. There is no mitral annular calcification. Mild mitral regurgitation. AORTIC VALVE: Normal trileaflet appearance. No visible sclerosis. Normal leaflet mobility. No evidence of aortic valve stenosis. No aortic regurgitation. AORTIC ROOT: Normal diameter and appearance, measuring 3.3 cm. The ascending aorta is normal in size measuring 2.9 cm. PULMONIC VALVE: Normal thickness and mobility. No stenosis. Mild regurgitation. PERICARDIUM: Trivial pericardial effusion. IVC: Collapses with inspiration. Normal size. PLEURA: CONCLUSION: 1. Normal left ventricular size and systolic function. Estimated LVEF is 60 to 65%. 2. Normal right ventricular size and systolic function. 3. Mild mitral and tricuspid regurgitation. 4. Normal right-sided pressures. Adult Echocardiography Procedure Report Left Ventricle LVEDD (3.7 - 5.6 cm): 3.93 cm LVESD (2.2 - 4.0 cm): 2.51 cm LVIVS thickness (0.6 - 1.2 cm): 1.03 cm LVPW thickness (0.5 - 1.0 cm): 0.87 cm e': 0.08 m/s E - e': 10.63 LVOT Max Gradient: 3.23 mm[Hg] LVOT Area (cm2): 0.90 m/s Peak Velocity (LVOT): 0.90 m/s Mean Velocity (LVOT): 0.67 m/s LVOT Diameter 1.92 cm Left Ventricular Ejection Fraction: 60-65 % Left Atrium LA Volume Index (2D A2C): 40.92 ml/m2 Left Atrium Systolic Dimension: 3.53 cm Mitral Valve MV E to A Ratio: 0.80, 0.84 Mitral Valve A-Wave Peak Velocity: 1.01 m/s Mitral Valve E-Wave Peak Velocity: 0.83 m/s Right Ventricle RV Internal Diastolic Dimension: 2.48 cm Aorta AO Root Diam: 3.26 cm Ascending Ao Diam: 2.92 cm Aortic Valve AoV Area (Peak Casey): 2.98 cm2, 2.98 cm2 AoV Area (VTI): 3.00 cm2, 3.00 cm2 Peak Velocity(Antegrade Flow): 0.87 m/s Peak Gradient(Antegrade Flow): 3.03 mm[Hg] Mean Velocity(Antegrade Flow): 0.61 m/s Mean Gradient(Antegrade Flow): 1.65 mm[Hg] Velocity Time Integral: 20.09 cm Tricuspid Valve Peak Velocity (Regurgitant Flow): 2.26 m/s, 2.10 m/s, 2.44 m/s Pulmonic Valve Mean Gradient: 2.19 mm[Hg], 1.76 mm[Hg] Mean Velocity: 0.70 m/s, 0.61 m/s Peak Velocity: 0.93 m/s Peak Gradient: 4.11 mm[Hg], 2.91 mm[Hg] Right Atrium Right Atrium Systolic Pressure: 26.29 ml, 26.29 ml Dictated by: Shoaib Norris M.D. on 12/04/2024 at 19:28 Approved by: Shoaib Norris M.D. on 12/04/2024 at 19:31
== END 2024-12-04 12:55 | disposition home or self-care (01) ==
LOC: CARD 12:54
PROVIDERS: PCP Family Medicine; Visit Provider Family Medicine
DX: R55 Syncope and collapse (principal)
CPT/HCPCS: 93246; 93306